=== PATIENT | female | born 1950 | race Two or more races ===

== ENCOUNTER 2017-09-22 10:33 | Day surgery (SDC) | payer MEDICARE, MEDICAID ==
[~2017-09-22 10:33] MED LIST: CHONDR SU A NA/HYALUR INTRAOC KIT (SURGICARE) ONE; EPINEPHRINE INJ/PF 1 MG/1 ML AMPULE ONE; KETOROLAC TROMETHAMINE 0.45% 4 DROP/0.4 ML DROPERETTE OD PRN; LIDOCAINE 1% INJ-PF (10 MG/ML) 30 ML SDV ONE; TOBRAMYCIN SULFATE/DEXAMETH OPH OINTMENT 3.5 GM ONE
[2017-09-22] MEDS: TROPICAMIDE 1% OPH SOLN 3 ML OD PRN ×3 (10:50→11:10)
[2017-09-22] MEDS: BESIFLOXACIN HCL 0.6% OPH SUSP 5 ML BOTTLE OD PRN ×3 (10:50→11:45)
[2017-09-22] MEDS: CYCLOPENTOLATE 0.2%/PHENYLEPHRINE 1% OPH SOLN 2 ML OD PRN ×3 (10:50→11:10)
[2017-09-22] MEDS: TETRACAINE HCL 0.5% OPH SOLN 0.6 ML DROPERETTE OD PRN ×3 (10:51→11:25)
[2017-09-22] MEDS ORDERED: MIDAZOLAM 2 MG/2 ML INJ ONE ×2 (11:13→11:34)
[2017-09-22] MEDS ORDERED: FENTANYL CITRATE INJ/PF 100 MCG/2 ML AMPUL ONE (11:13)
== END 2017-09-22 12:23 | disposition home or self-care (01) ==
LOC: SC 10:33
PROVIDERS: ATTEND Ophthalmology
DX: H25.11 Age-related nuclear cataract, right eye (principal); F17.210 Nicotine dependence, cigarettes, uncomplicated; J45.909 Unspecified asthma, uncomplicated; K21.9 Gastro-esophageal reflux disease without esophagitis; Z79.899 Other long term (current) drug therapy; Z86.73 Personal history of transient ischemic attack (TIA), and cerebral infarction without residual deficits
CPT/HCPCS: 66984; V2630; J2250; J3490 ×3; A9270; J0171; J3010; 142

== ENCOUNTER → 2017-11-05 | Outpatient (CLI) | payer MEDICARE, MEDICAID ==
--- NOTE | 2017-11-05 14:43 | WOMENS IMAGING REPORT ---
EXAM DESCRIPTION: 3D SCREENING MAMMO BILAT COMPLETED DATE/TIME: 11/05/2017 1:35 pm REASON FOR STUDY: ROUTINE SCREENING;Z12.31 Z12.31 ENCNTR SCREEN MAMMOGRAM FOR MALIGNANT NEOPLASM OF CRUZ COMPARISON: Multiple since 2009 TECHNIQUE: Standard craniocaudal and mediolateral oblique views of each breast recorded using digita l acquisition and breast tomosynthesis. LIMITATIONS: None. FINDINGS: No masses, calcifications or architectural distortion. No areas of suspicion. Read with the assistance of CAD. .[facility] - R2 Cenova Version 1.3 .[facility] Imaging - R2 Cenova Version 1.3 .[facility] Imaging - R2 Cenova Version 2.4 .[facility] - R2 Cenova Version 2.4 .[facility] - R2 Datawarehouse Developer Version 9.2 IMPRESSION: NORMAL MAMMOGRAM. BIRADS 1. BREAST DENSITY: b. There are scattered areas of fibroglandular density. BIRAD: 1 NEGATIVE RECOMMENDATION: ROUTINE SCREENING Please continue yearly bilateral screening tomosynthesis in November 2018. COMMENT: The patient has been notified of the results by letter per SA requirements. Additional no tification policies are in place for contacting patient with suspicious or incomplete findings. Quality ID #[id number]: The [employer] recommends an annual screening mammogram for women aged 40 years or over. This facility utilizes a reminder system to ensure that all patients receive reminder letters, and/or direct phone calls for appointments. This includes reminders for routine scr eening mammograms, diagnostic mammograms, or other Breast Imaging Interventions when appropriate. Th is patient will be placed in the appropriate reminder system. The [employer] (ACR) has developed recommendations for screening MRI of the breast s in certain patient populations, to be used in conjunction with mammography. Breast MRI surveillanc e may be appropriate for women with more than 20% lifetime risk of developing breast cancer as deter mined by genetic testing, significant family history of the disease, or history of mantle radiation f or Hodgkins Disease. ACR Practice Guidelines 2008. DBT Technology DBT is a type of tomographic mammography. With conventional mammography, overlapping breast tissue ma y make lesions difficult to detect, even with good compression. DBT uses an x-ray tube that rotates a round the breast, taking images at different angles. These images are then combined to create thin sl ices of the breast that the radiologist can view as a 3D reconstruction. The Cogito unit can perform full-field digital mammograms (2D imaging); or DBT (3D imaging); or both, in a combination mode that quickly performs both the mammogram and the tomosynthesis scan while the breast is still compressed. PQRS 6045F: Fluoroscopic imaging is not utilized for breast tomosynthesis. TECHNICAL DOCUMENTATION: FINDING NUMBER: (1) ASSESSMENT: (1) JOB ID: [id number] [employer]- All Rights Reserved Reading location - IP/workstation name: [facility]
== END ==
LOC: WI 11:06
PROVIDERS: ATTEND Family Medicine
DX: Z12.31 Encounter for screening mammogram for malignant neoplasm of breast (principal)
CPT/HCPCS: 77063; 77067

== ENCOUNTER 2017-11-21 09:09 | Inpatient (IN) | payer MEDICARE, MEDICAID ==
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
[2017-11-21] MEDS ORDERED: NORMAL SALINE 1000 ML 1,000 ML IV ONE (09:30)
[2017-11-21] MEDS ORDERED: ALBUTEROL SULFATE 0.083% NEB 2.5 MG/3 ML AMPUL NEB ONE ×2 (09:31→11:44)
[2017-11-21] MEDS ORDERED: IPRATROPIUM/ALBUTEROL 0.5-2.5 MG/3 ML AMPUL NEB ONE ×2 (09:31→15:51)
[2017-11-21 09:57] LABS: ABSOLUTE LYMPHOCYTES (AUTO) 1.3 10^3/uL (0.5-4.7); ABSOLUTE MONOCYTES (AUTO) 0.4 10^3/uL (0.1-1.4); ABSOLUTE NEUT (AUTO) 4.4 10^3/uL (1.7-8.2); BASOPHILS % (AUTO) 0.2 % (0-2); EOSINOPHILS % (AUTO) 0.1 % (0-6); HEMATOCRIT 40.7 % (36.0-47.0); HEMOGLOBIN 13.9 g/dL (12.0-15.5); LYMPHOCYTES % (AUTO) 21.6 % (13-45); MEAN CORPUSCULAR HEMOGLOBIN 31.8 pg (27.0-33.4); MEAN CORPUSCULAR HGB CONC 34.3 g/dL (32.0-36.0); MEAN CORPUSCULAR VOLUME 93 fl (80-97); MONOCYTES % (AUTO) 6.7 % (3-13); PLATELET COUNT 276 10^3/uL (150-450); RED BLOOD COUNT 4.39 10^6/uL (3.72-5.28); RED CELL DISTRIBUTION WIDTH 15.1 % (11.5-14.0); SEGMENTED NEUTROPHILS % (AUTO) 71.4 % (42-78); TOTAL CELLS COUNTED % (AUTO) 100 %; WHITE BLOOD COUNT 6.2 10^3/uL (4.0-10.5)
[2017-11-21 10:10] LABS: ALANINE AMINOTRANSFERASE 23 U/L (9-52); ALBUMIN 4.3 g/dL (3.5-5.0); ALKALINE PHOSPHATASE 137 U/L (38-126); ANION GAP 18 (5-19); ASPARTATE AMINO TRANSFERASE 23 U/L (14-36); BILIRUBIN,DIRECT 0.4 mg/dL (0.0-0.4); BILIRUBIN,TOTAL 0.4 mg/dL (0.2-1.3); BLOOD UREA NITROGEN 7 mg/dL (7-20); CALCIUM 9.9 mg/dL (8.4-10.2); CARBON DIOXIDE 25 mmol/L (22-30); CHLORIDE 107 mmol/L (98-107); CREATINE KINASE 74 U/L (30-135); GLUCOSE 102 mg/dL (75-110); POTASSIUM 4.4 mmol/L (3.6-5.0); SODIUM 149.6 mmol/L (137-145); TOTAL PROTEIN 7.9 g/dL (6.3-8.2)
[2017-11-21] MEDS ORDERED: KETOROLAC TROMETHAMINE INJ/PF 30 MG/1 ML SDV IV ONE (10:15)
[2017-11-21 10:17] LABS: VENOUS BLOOD BASE EXCESS -1.6 mmol/L; VENOUS BLOOD PCO2 49.5 mmHg (35-63); VENOUS BLOOD PH 7.32 (7.30-7.42)
--- NOTE | 2017-11-21 10:32 | RADIOLOGY REPORT (SQ) ---
EXAM DESCRIPTION: CHEST SINGLE VIEW COMPLETED DATE/TIME: 11/21/2017 10:17 am REASON FOR STUDY: COPD exacerbation COMPARISON: 03/08/2015. EXAM PARAMETERS: NUMBER OF VIEWS: One view. TECHNIQUE: Single frontal radiographic view of the chest acquired. RADIATION DOSE: NA LIMITATIONS: None. FINDINGS: LUNGS AND PLEURA: No opacities, masses or pneumothorax. No pleural effusion. MEDIASTINUM AND HILAR STRUCTURES: No masses. Contour normal. HEART AND VASCULAR STRUCTURES: Heart normal in size. Normal vasculature. BONES: No acute findings. HARDWARE: None in the chest. OTHER: No other significant finding. IMPRESSION: NO ACUTE RADIOGRAPHIC FINDING IN THE CHEST. TECHNICAL DOCUMENTATION: JOB ID: [id number] [email or web address]- All Rights Reserved Reading location - IP/workstation name: [email or web address]
[2017-11-21 10:51] LABS: APPEARANCE,URINE CLEAR; BILIRUBIN,URINE NEGATIVE (NEGATIVE); COLOR,URINE YELLOW; GLUCOSE, URINE NEGATIVE (NEGATIVE); KETONES,URINE NEGATIVE (NEGATIVE); LEUKOCYTE ESTERASE,URINE NEGATIVE (NEGATIVE); NITRITE,URINE NEGATIVE (NEGATIVE); PROTEIN,URINE 30 mg/dL (NEGATIVE); URINE SPECIFIC GRAVITY 1.016
[2017-11-21] MEDS ORDERED: HYDROMORPHONE HCL INJ/PF 2 MG/ML AMPULE IV ONE ×2 (11:02→14:24)
[2017-11-21] MEDS ORDERED: PREDNISONE 20 MG TABLET PO ONE (13:35)
[2017-11-21] MEDS ORDERED: LEVALBUTEROL HCL NEB 1.25 MG/3 ML AMPUL NEB PRN (15:47)
[2017-11-21] MEDS ORDERED: LEVALBUTEROL HCL NEB 1.25 MG/3 ML AMPUL NEB ONE (16:07)
[2017-11-21] MEDS: IPRATROPIUM/ALBUTEROL 0.5-2.5 MG/3 ML AMPUL NEB SCH ×2 (16:08→19:40)
--- NOTE | 2017-11-21 16:19 | EKG REPORT ---
SEVERITY:- OTHERWISE NORMAL ECG - SINUS RHYTHM BORDERLINE LEFT AXIS DEVIATION : Confirmed by: Aditi An 21-Nov-2017 16:17:32
[2017-11-21] MEDS ORDERED: ENOXAPARIN SODIUM INJ 30 MG/0.3 ML DISP.SYRIN SUBCUT ONE (17:00)
[2017-11-21] MEDS ORDERED: NICOTINE 21 MG/24 HR PATCH.TD24 TD ONE (17:15)
[2017-11-21 18:08] LABS: ARTERIAL BLOOD BASE EXCESS -2.7 mmol/L; ARTERIAL BLOOD FIO2 3L; ARTERIAL BLOOD H2CO3 1.38 mmol/L (1.05-1.35); ARTERIAL BLOOD HCO3 23.4 mmol/L (20-26); ARTERIAL BLOOD O2 SATURATION 94.1 % (94-98); ARTERIAL BLOOD PCO2 45.7 mmHg (35-45); ARTERIAL BLOOD PH 7.33 (7.35-7.45); ARTERIAL BLOOD PO2 75.3 mmHg (80-100); ARTERIAL BLOOD TOTAL CO2 24.8 mmol/L (21-25)
[2017-11-21] MEDS ORDERED: METHYLPREDNISOLONE INJ 125 MG/2 ML SDV IV ONE (18:27)
[2017-11-21] MEDS ORDERED: KETOROLAC TROMETHAMINE INJ/PF 30 MG/1 ML SDV ONE (18:54)
[2017-11-21] MEDS ORDERED: HYDRALAZINE HCL INJ/PF 20 MG/1 ML SDV IV PRN (20:26)
[2017-11-21] MEDS: ATORVASTATIN CALCIUM 20 MG TABLET PO SCH (21:22)
[2017-11-21] MEDS: BUSPIRONE HCL 10 MG TABLET PO SCH (21:22)
[2017-11-21] MEDS: SUCRALFATE 1 GM TABLET PO SCH (21:23)
[2017-11-21] MEDS: GUAIFENESIN 600 MG TABLET.SA PO SCH (21:23)
[2017-11-21] MEDS: MONTELUKAST SODIUM 10 MG TABLET PO SCH (21:23)
[2017-11-21] MEDS: DOXYCYCLINE HYCLATE 100 MG TABLET PO SCH (21:23)
--- NOTE | 2017-11-21 21:34 | PDOC H&P ---
<MARIA T SMITH Triston - Last Filed: 11/21/17 21:25> History of Present Illness Admission Date/PCP: 11/21/17 14:44 LISA STARK MD Patient complains of: shortness of breath History of Present Illness: AMELIE EDMOND is a 67 year old female who presented to the emergency department with a chief complaint of SOB for approximately 1 week. She states she recently traveled back and forth to [facility] for a , and she began to feel ill during her return trip to [place]. The patient describes her symptoms as difficulty breathing, dizziness, a persistent cough, and endorses a TMAX of 103 48hrs ago. She is experiencing a DENNEY and R&L lateral rib pain when coughing. She initially went to her PMD 2 days ago for her symptoms, and she was prescribed Augmentin, Medrol dose pack, Advair and albuterol. The patient states that her symptoms continued to get worse, despite her medication therapy, so she came to the hospital. PMH includes COPD (no home O2), HTN, HLD, osteoporosis, CVA with residual mild RUE weakness Her VS upon arrival were as follows BP 103/60 P 64 RR 26 T 99.1 SPO2 94% on RA. While in the emergency department, the patient received multiple nebulizer treatments, PO prednisone, and pain medication for her rib pain associated with coughing. Her CXR showed mild pulmonary vascular congestion, no other pathology. ABG (following nebulizer treatments) demonstrated respiratory acidosis with metabolic compensation. Other lab work was mostly unremarkable, except for mild HYPERnatremia (Na 149). EKG shows NSR, no signs of acute infarct or ischemia. Upon assessment, the patient was resting in bed on supplemental oxygen via nasal cannula. Audible wheezing could be heard from the doorway, however, the patient did not appear to be in any distress. Wheezing could be heard in all lung robles, no evidence of rhonci or other adventitious lung sounds. The patient endorsed feeling SOB and dizzy, even while at rest. She also endorsed lateral chest wall/rib pain associated with coughing, which was producing thick yellow mucous. She denied fever, chills, or neck or back pain. Given the severity of the patient's symptoms, plan to admit to the hospitalist service. Past Medical History Cardiac Medical History: Reports: Hyperlipidema Denies: Atrial Fibrillation, Congestive Heart Failure, Coronary Artery Disease, Myocardial Infarction, Hypertension, Peripheral Vascular Disease, Pulmonary Embolism, Heart Murmur Pulmonary Medical History: Reports: Asthma - NO RECENT HOSPITALIZATION/ ALBUTEROL PRN, Chronic Obstructive Pulmonary Disease (COPD) Denies: Bronchitis, Pneumonia, Respiratory Failure, Sleep Apnea, Tuberculosis Neurological Medical History: Reports: Ischemic CVA, Migraine Denies: Seizures Renal/ Medical History: Denies: End Stage Renal Disease Malignancy Medical History: Denies: Lung Cancer GI Medical History: Reports: Gastroesophageal Reflux Disease Denies: Crohn's Disease, Hepatitis, Hiatal Hernia Musculoskeltal Medical History: Reports: Arthritis - back, Fibromyalgia Psychiatric Medical History: Reports: Depression Denies: Bipolar Disorder, Post Traumatic Stress Disorder Hematology: Denies: Anemia, Sickle Cell Disease Past Surgical History Past Surgical History: Reports: Cholecystectomy, Hysterectomy, Tonsillectomy, Tubal Ligation Denies: Amputation, Appendectomy, Section, Colostomy, Coronary Artery Bypass Graft, Gastric Bypass Surgery, Herniorrhaphy, Mastectomy, Pacemaker Social History Information Source: Patient Lives with: Family Smoking Status: Current Every Day Smoker Cigarettes Packs Per Day: 0.5 - 0.5-1 ppd Number of Years Smokin Frequency of Alcohol Use: None Hx Recreational Drug Use: No Drugs: None Hx Prescription Drug Abuse: No - Advance Directive Resuscitation Status: Do Not Resuscitate Family History Family History: CAD, DM, Malignancy - BREAST CANCER - 2 SISTERS Parental Family History Reviewed: Yes Children Family History Reviewed: Unknown Sibling(s) Family History Reviewed.: Yes Medication/Allergy Home Medications: Quetiapine Fumarate [Seroquel 100 mg Tablet] 200 mg PO QHS 09/15/14 Diazepam [Valium 5 mg Tablet] 10 mg PO BIDP PRN 07/09/15 Fluoxetine HCl [Prozac] 80 mg PO DAILY 09/17/17 Gabapentin 400 mg PO Q8 09/17/17 Sucralfate [Carafate 1 gm Tablet] 1 gm PO ACHS 09/17/17 Albuterol Sulfate [Ventolin HFA] 2 puff IH Q6HP PRN 11/21/17 Amox Tr/Potassium Clavulanate [Augmentin 875-125 mg Tablet] 1 tab PO BID MDD FILLED 11/18 FOR 10DS 11/21/17 Buspirone HCl [Buspar 15 mg Tablet] 15 mg PO Q8 11/21/17 Butalb/Acetaminophen/Caffeine [Fioricet 50-300-40 mg Capsule] 1 cap PO Q4HP PRN 11/21/17 Donepezil HCl [Aricept] 10 mg PO DAILY 11/21/17 Fluticasone Propionate [Flonase Nasal [place] 50 Mcg/[place] 16 gm] 2 sprays NAREB DAILY 11/21/17 Fluticasone/Salmeterol [Advair 250-50 Diskus 28 dose] 1 inh IH Q12 11/21/17 Meloxicam [Mobic] 15 mg PO DAILY 11/21/17 Methylprednisolone [Medrol Dosepack (4 mg/Tab) 21 Tab/Dosepak] 4 mg PO ASDIR PRN MDD FILLED 11/18 FOR 6DS 11/21/17 Montelukast Sodium [Singulair 10 mg Tablet] 10 mg PO QHS 11/21/17 Rosuvastatin Calcium [Crestor 10 mg Tablet] 10 mg PO QHS 11/21/17 Allergies/Adverse Reactions: No Known Allergies Allergy (Verified 11/21/17 09:13) Review of Systems All systems: reviewed and no additional remarkable complaints except as stated Physical Exam Vital Signs: Temp Pulse Resp BP Pulse Ox 98.3 F 69 16 126/64 H 95 11/21/17 16:37 11/21/17 16:40 11/21/17 16:37 11/21/17 16:37 11/21/17 16:37 Intake & Output 11/20/17 11/21/17 11/22/17 06:59 06:59 06:59 Intake Total 10 Output Total 0 Balance 10 General appearance: PRESENT: mild distress, morbidly obese Head exam: PRESENT: atraumatic Eye exam: PRESENT: conjunctiva pink, PERRLA Mouth exam: PRESENT: moist Neck exam: PRESENT: full ROM Respiratory exam: PRESENT: prolonged expiratory phas, symmetrical, wheezes - INSPIRATORY AND EXPIRATORY. ABSENT: retraction, stridor, unlabored Cardiovascular exam: PRESENT: +S1, +S2 Pulses: PRESENT: normal radial pulses, normal dorsalis pedis pul GI/Abdominal exam: PRESENT: normal bowel sounds, soft. ABSENT: tenderness Rectal exam: PRESENT: deferred Extremities exam: PRESENT: full ROM Musculoskeletal exam: PRESENT: ambulatory, full ROM Neurological exam: PRESENT: alert, awake, oriented to person, oriented to place , oriented to time, oriented to situation Psychiatric exam: PRESENT: appropriate affect Skin exam: PRESENT: dry, normal color, warm Results Laboratory Results: 11/21/17 17:40 Carbonic Acid 1.38 H HCO3/H2CO3 Ratio 16:1 ABG pH 7.33 L ABG pCO2 45.7 H ABG pO2 75.3 L ABG HCO3 23.4 ABG O2 Saturation 94.1 ABG Base Excess -2.7 FiO2 3L Impressions: Chest X-Ray 11/21/17 09:29 IMPRESSION: NO ACUTE RADIOGRAPHIC FINDING IN THE CHEST. Status: Imported from PACS Assessment & Plan - Diagnosis (1) Acute and chronic respiratory failure QualifierTitle: Respiratory failure complication: hypoxia and hypercapnia Qualified Code(s): J96.21 - Acute and chronic respiratory failure with hypoxia ; J96.22 - Acute and chronic respiratory failure with hypercapnia; J96.22 - Acute and chronic respiratory failure with hypercapnia; J96.22 - Acute and chronic respiratory failure with hypercapnia Is this a current diagnosis for this admission?: Yes Plan: Secondary to COPD exacerbation stemming from upper respiratory infection The patient states she recently traveled back and forth to [place], she states she started feeling ill during her trip back to [place] CXR demonstrates mild pulmonary vascular congestion, no other pathology The patient endorses a 50 pack year smoking history, but denies ever being diagnosed with COPD. ABG shows hypercapnic respiratory acidosis with metabolic compensation Supplemental oxygen via nasal cannula for SPO2> 88% Duoneb q4h ISABEL Xopenex q4h PRN Solumedrol 60mg q6h Empiric antibiotic therapy (doxycycline PO) for acute bronchitis in the COPD patient Plan for inpatient PFT Pulmonary has been consulted (2) COPD with acute exacerbation Is this a current diagnosis for this admission?: Yes Plan: Plan as above (3) HTN (hypertension) QualifierTitle: Hypertension type: essential hypertension Qualified Code( s): I10 - Essential (primary) hypertension Is this a current diagnosis for this admission?: Yes Plan: Patient endorses a history of HTN but she is not on anti-hypertensives at home Patient has remained relatively NORMOtensive while inpatient PRN IV Hydralazine for SBP > 170 (4) HLD (hyperlipidemia) QualifierTitle: Hyperlipidemia type: unspecified Qualified Code(s): E78.5 - Hyperlipidemia, unspecified Is this a current diagnosis for this admission?: Yes Plan: Patient endorses a history of HLD Continue home dose statin (5) Depression QualifierTitle: Depression Type: reactive depression Qualified Code(s): F32.9 - Major depressive disorder, single episode, unspecified Is this a current diagnosis for this admission?: Yes Plan: The patient endorses a history of depression, states she often experiences migraines when she is very stressed and/or depressed Continue home dose Buspar and Prozac The patient denies current feelings of depression, suicidal ideation or homicidal ideation. (6) DNR (do not resuscitate) Is this a current diagnosis for this admission?: Yes Plan: Patient states that she wants to be a DNR. She does not want resuscitation. The patient stated this in from of the author and three family members. - Time Critical Time spent with patient: 15-24 minutes Medications reviewed and adjusted accordingly: Yes Anticipated discharge: Home - Inpatient Certification Based on my medical assessment, after consideration of the patient's comorbidities, presenting symptoms, or acuity I expect that the services needed warrant INPATIENT care.: Yes I certify that my determination is in accordance with my understanding of Medicare's requirements for reasonable and necessary INPATIENT services [42 CFR 412.3e].: Yes Medical Necessity: Need for IV Antibiotics, Risk of Complication if Not Cared For in Hospital - Plan Summary Plan Summary: Treat COPD exacerbation and discharge home <MILLIENOVEMBER C - Last Filed: 11/22/17 07:21> History of Present Illness Admission Date/PCP: 11/21/17 14:44 LISA STARK MD History of Present Illness: AMELIE EDMOND is a 67 year old female Physical Exam Vital Signs: Temp Pulse Resp BP Pulse Ox 97.6 F 71 17 142/47 H 97 11/22/17 00:00 11/22/17 03:52 11/22/17 03:52 11/22/17 00:00 11/22/17 03:52 Intake & Output 11/21/17 11/22/17 11/23/17 06:59 06:59 06:59 Intake Total 610 Output Total 0 Balance 610 Weight 73.6 kg Results Laboratory Results: 11/21/17 17:40 Carbonic Acid 1.38 H HCO3/H2CO3 Ratio 16:1 ABG pH 7.33 L ABG pCO2 45.7 H ABG pO2 75.3 L ABG HCO3 23.4 ABG O2 Saturation 94.1 ABG Base Excess -2.7 FiO2 3L Impressions: Chest X-Ray 11/21/17 09:29 IMPRESSION: NO ACUTE RADIOGRAPHIC FINDING IN THE CHEST. Assessment & Plan - Plan Summary Plan Summary: Cosigning document for Maria T Smith NP
[2017-11-21] MEDS: SALMETEROL XINAFOATE DISKUS 50 MCG/1 DOSE 28 DOSE IH SCH (21:37)
[2017-11-21] MEDS ORDERED: FLUTICASONE/SALMETEROL DISKUS 250-50 MCG/DOSE IH SCH (22:00)
[2017-11-21] MEDS ORDERED: GUAIFENESIN 600 MG TABLET.SA PO ONE (23:00)
[2017-11-22] MEDS: IPRATROPIUM/ALBUTEROL 0.5-2.5 MG/3 ML AMPUL NEB SCH ×7 (00:20→23:56)
[2017-11-22] MEDS: KETOROLAC TROMETHAMINE INJ/PF 30 MG/1 ML SDV IV PRN ×2 (00:53→08:11)
[2017-11-22] MEDS ORDERED: BENZONATATE 100 MG CAPSULE PO ONE (01:30)
[2017-11-22] MEDS: BUSPIRONE HCL 10 MG TABLET PO SCH ×3 (06:02→21:43)
[2017-11-22] MEDS ORDERED: MORPHINE SULFATE 10 MG/ML INJ IV ONE (07:00)
[2017-11-22 07:52] LABS: ABSOLUTE LYMPHOCYTES (AUTO) 1.3 10^3/uL (0.5-4.7); ABSOLUTE MONOCYTES (AUTO) 0.6 10^3/uL (0.1-1.4); ABSOLUTE NEUT (AUTO) 9.6 10^3/uL (1.7-8.2); HEMATOCRIT 37.8 % (36.0-47.0); HEMOGLOBIN 12.6 g/dL (12.0-15.5); LYMPHOCYTES % (AUTO) 11.4 % (13-45); MEAN CORPUSCULAR HEMOGLOBIN 30.8 pg (27.0-33.4); MEAN CORPUSCULAR HGB CONC 33.2 g/dL (32.0-36.0); MEAN CORPUSCULAR VOLUME 93 fl (80-97); MONOCYTES % (AUTO) 5.4 % (3-13); PLATELET COUNT 240 10^3/uL (150-450); RED BLOOD COUNT 4.08 10^6/uL (3.72-5.28); RED CELL DISTRIBUTION WIDTH 14.9 % (11.5-14.0); SEGMENTED NEUTROPHILS % (AUTO) 83.2 % (42-78); TOTAL CELLS COUNTED % (AUTO) 100 %; WHITE BLOOD COUNT 11.6 10^3/uL (4.0-10.5)
[2017-11-22] MEDS: SUCRALFATE 1 GM TABLET PO SCH ×4 (07:59→21:43)
[2017-11-22] MEDS: ACETAMINOPHEN 325 MG TABLET PO PRN ×2 (07:59→21:43)
[2017-11-22] MEDS ORDERED: METHYLPREDNISOLONE INJ 40 MG/1 ML SDV IV SCH (08:00)
[2017-11-22 08:11] LABS: ANION GAP 14 (5-19); BLOOD UREA NITROGEN 9 mg/dL (7-20); CALCIUM 9.8 mg/dL (8.4-10.2); CARBON DIOXIDE 26 mmol/L (22-30); CHLORIDE 107 mmol/L (98-107); GLUCOSE 78 mg/dL (75-110); PHOSPHORUS 3.2 mg/dL (2.5-4.5); POTASSIUM 4.4 mmol/L (3.6-5.0); SODIUM 146.6 mmol/L (137-145)
--- NOTE | 2017-11-22 08:57 | RADIOLOGY REPORT (SQ) ---
EXAM DESCRIPTION: CHEST SINGLE VIEW COMPLETED DATE/TIME: 11/22/2017 8:36 am REASON FOR STUDY: RESP.DISTRESS COMPARISON: Chest films 11/21/2017, 03/08/2015, 01/11/2014 CT chest 12/14/2013 EXAM PARAMETERS: NUMBER OF VIEWS: One view. TECHNIQUE: Single frontal radiographic view of the chest acquired. RADIATION DOSE: NA LIMITATIONS: Lordotic film, EKG leads over the chest FINDINGS: LUNGS AND PLEURA: No opacities, masses or pneumothorax. No pleural effusion. MEDIASTINUM AND HILAR STRUCTURES: No masses. Contour normal. HEART AND VASCULAR STRUCTURES: Heart normal in size. Normal vasculature. BONES: No acute findings. HARDWARE: None in the chest. OTHER: No other significant finding. IMPRESSION: NO ACUTE RADIOGRAPHIC FINDING IN THE CHEST. TECHNICAL DOCUMENTATION: JOB ID: [id number] [employer]- All Rights Reserved Reading location - IP/workstation name: [email or web address]
[2017-11-22] MEDS: DONEPEZIL HCL 5 MG TABLET PO SCH (09:59)
[2017-11-22] MEDS: GUAIFENESIN 600 MG TABLET.SA PO SCH ×2 (09:59→21:43)
[2017-11-22] MEDS: BENZONATATE 100 MG CAPSULE PO SCH ×3 (10:00→18:55)
[2017-11-22] MEDS: DOXYCYCLINE HYCLATE 100 MG TABLET PO SCH (10:00)
[2017-11-22] MEDS ORDERED: TIOTROPIUM BROMIDE DPI 5 CAP/KIT (18 MCG/CAP) IH SCH (10:00)
[2017-11-22] MEDS: FLUOXETINE HCL 20 MG CAPSULE PO SCH (10:00)
[2017-11-22] MEDS: NICOTINE 21 MG/24 HR PATCH.TD24 TD SCH (10:00)
[2017-11-22] MEDS ORDERED: GUAIFENESIN 600 MG TABLET.SA PO SCH (10:00)
[2017-11-22] MEDS: ENOXAPARIN SODIUM INJ 30 MG/0.3 ML DISP.SYRIN SUBCUT SCH (10:01)
[2017-11-22] MEDS: FLUTICASONE NASAL SPRAY 50 MCG/SPRY 120 SPRAY/16 GM NAREB SCH (10:02)
[2017-11-22] MEDS: SALMETEROL XINAFOATE DISKUS 50 MCG/1 DOSE 28 DOSE IH SCH (10:02)
[2017-11-22] MEDS ORDERED: TRAMADOL HCL 50 MG TABLET PO PRN (10:09)
[2017-11-22] MEDS ORDERED: LIDOCAINE 5% (700 MG) TRANSDERMAL ADH..PATCH TP ONE (11:00)
[2017-11-22] MEDS ORDERED: BUDESONIDE NEB 0.5 MG/2 ML AMPUL NEB ONE (11:45)
[2017-11-22] MEDS ORDERED: TUBERCULIN,PURIF.PROT.DERIV. 5 TU/0.1 ML TEST 1 ML VIAL ID ONE (11:45)
[2017-11-22] MEDS ORDERED: MORPHINE SULFATE 10 MG/ML INJ IV PRN (12:30)
--- NOTE | 2017-11-22 12:54 | EKG REPORT ---
SEVERITY:- OTHERWISE NORMAL ECG - SINUS RHYTHM LEFT AXIS DEVIATION : Confirmed by: Paul Frost MD 22-Nov-2017 12:54:11
[2017-11-22] MEDS: ONDANSETRON 4 MG TAB.RAPDIS PO PRN ×2 (13:25→19:05)
[2017-11-22] MEDS: METHYLPREDNISOLONE INJ 125 MG/2 ML SDV IV SCH ×2 (13:34→21:42)
[2017-11-22] MEDS: LEVOFLOXACIN 750 MG/D5W RTU 750 MG/150 ML RTUPB IV SCH (15:40)
[2017-11-22] MEDS: BUDESONIDE NEB 0.5 MG/2 ML AMPUL NEB SCH (19:57)
[2017-11-22] MEDS: MONTELUKAST SODIUM 10 MG TABLET PO SCH (21:43)
[2017-11-22] MEDS: ATORVASTATIN CALCIUM 20 MG TABLET PO SCH (21:43)
[2017-11-22] MEDS ORDERED: PROMETHAZINE HCL INJ 25 MG/1 ML VIAL IV PRN (22:09)
[2017-11-22] MEDS: DEXTROSE 5%-WATER 1000 ML 1,000 ML IV PRN (23:19)
--- NOTE | 2017-11-23 02:35 | PDOC PROGRESS REPORT ---
<SARAHMARIA T A - Last Filed: 11/23/17 02:11> Subjective Progress Note for:: 11/22/17 Subjective:: AMELIE EDMOND is a 67 y.o. female with a PMH of COPD (50 pack yrs), HTN, HLD, depression and anxiety. She presented to the ED 11/21/2017 with a severe COPD exacerbation. Patient seen this morning on rounds, she is sitting upright in bed and is tachypnic with a RR 25. She c/o SOB as well as L lateral chest pain exacerbated with coughing. Wheezing heard in all lung robles. SPO2 93% on 2LNC. STAT EKG just showed NSR, no evidence of acute ischemia or infarction. Repeat CXR shows pulmonary vascular congestion, no evidence of PNA or other lung pathology. Additionally, the patient spiked a fever to 103. Blood cultures and sputum cultures ordered, results pending. Antibiotic coverage for acute bronchitis changed from PO doxycycline to IV levaquin. Reason For Visit: COPD EXACERBATION Physical Exam Vital Signs: Temp Pulse Resp BP Pulse Ox 98.4 F 79 22 H 113/51 L 97 11/22/17 23:37 11/22/17 23:56 11/22/17 23:56 11/22/17 23:37 11/23/17 00:01 Pulse Oximeter Continuous Start: 11/22/17 08: 35 Freq: RTQ4 Status: Active Document 11/23/17 00:01 CMI (Rec: 11/23/17 00:30 CMI [email or web address]) Pulse Oximetry Assessment Oxygen Saturation (92-100) 97 Oxygen Flow Rate (L/min) 3 Oxygen Delivery Method Nasal Cannula Fraction of Inspired Oxygen (FIO2) 32 Equipment Usage Equipment in Use Continuous Pulse Oximeter 24 Hour Charge Charge Now Continuous SpO2 Machine # 11 Intake & Output 11/21/17 11/22/17 11/23/17 06:59 06:59 06:59 Intake Total 610 462 Output Total 0 Balance 610 462 Weight 73.6 kg 74.9 kg General appearance: PRESENT: mild distress Eye exam: PRESENT: conjunctiva pink, PERRLA Mouth exam: PRESENT: moist Neck exam: PRESENT: full ROM Respiratory exam: PRESENT: prolonged expiratory phas, symmetrical, wheezes Cardiovascular exam: PRESENT: +S1, +S2 Pulses: PRESENT: normal radial pulses, normal dorsalis pedis pul Vascular exam: PRESENT: normal capillary refill GI/Abdominal exam: PRESENT: normal bowel sounds, soft Rectal exam: PRESENT: deferred Extremities exam: PRESENT: full ROM Musculoskeletal exam: PRESENT: ambulatory, full ROM Neurological exam: PRESENT: alert, awake, oriented to person, oriented to place , oriented to time, oriented to situation Psychiatric exam: PRESENT: anxious Skin exam: PRESENT: dry, intact, normal color Results Laboratory Results: 11/22/17 06:49 11/22/17 06:49 11/22/17 11/22/17 06:49 06:49 WBC 11.6 H RBC 4.08 Hgb 12.6 Hct 37.8 MCV 93 MCH 30.8 MCHC 33.2 RDW 14.9 H Plt Count 240 Seg Neutrophils % 83.2 H Lymphocytes % 11.4 L Monocytes % 5.4 Eosinophils % 0.0 Basophils % 0.0 Absolute Neutrophils 9.6 H Absolute Lymphocytes 1.3 Absolute Monocytes 0.6 Absolute Eosinophils 0.0 Absolute Basophils 0.0 Sodium 146.6 H Potassium 4.4 Chloride 107 Carbon Dioxide 26 Anion Gap 14 BUN 9 Creatinine 0.42 L Est GFR ( Amer) > 60 Est GFR (Non-Af Amer) > 60 Glucose 78 Calcium 9.8 Phosphorus 3.2 Magnesium 1.8 11/22/17 11/22/17 11/22/17 06:49 12:35 18:05 Troponin I < 0.012 < 0.012 < 0.012 Impressions: Chest X-Ray 11/22/17 00:00 IMPRESSION: NO ACUTE RADIOGRAPHIC FINDING IN THE CHEST. Status: Imported from PACS Assessment & Plan - Diagnosis (1) Acute and chronic respiratory failure QualifierTitle: Respiratory failure complication: hypoxia and hypercapnia Qualified Code(s): J96.21 - Acute and chronic respiratory failure with hypoxia ; J96.22 - Acute and chronic respiratory failure with hypercapnia; J96.22 - Acute and chronic respiratory failure with hypercapnia; J96.22 - Acute and chronic respiratory failure with hypercapnia Is this a current diagnosis for this admission?: Yes Plan: Secondary to COPD exacerbation stemming from upper respiratory infection The patient states she recently traveled back and forth to [place], she states she started feeling ill during her trip back to [place] CXR demonstrates mild pulmonary vascular congestion, no other pathology The patient endorses a 50 pack year smoking history, but denies ever being diagnosed with COPD. Initial ABG shows hypercapnic respiratory acidosis with metabolic compensation Supplemental oxygen via nasal cannula for SPO2> 88% Duoneb q4h ISABEL Xopenex q4h PRN Solumedrol 60mg q6h Empiric antibiotic therapy for acute bronchitis in the COPD patient - switched from doxycycline PO to Levaquin IV given the severity of her symptoms Incentive pirometry and flutter valve Plan for inpatient PFT Pulmonary has been consulted (2) COPD with acute exacerbation Is this a current diagnosis for this admission?: Yes Plan: Plan as above (3) HTN (hypertension) QualifierTitle: Hypertension type: essential hypertension Qualified Code( s): I10 - Essential (primary) hypertension Is this a current diagnosis for this admission?: Yes Plan: Patient endorses a history of HTN but she is not on anti-hypertensives at home Patient has remained relatively NORMOtensive while inpatient PRN IV Hydralazine for SBP > 170 (4) HLD (hyperlipidemia) QualifierTitle: Hyperlipidemia type: unspecified Qualified Code(s): E78.5 - Hyperlipidemia, unspecified Is this a current diagnosis for this admission?: Yes Plan: Patient endorses a history of HLD Continue home dose statin (5) Depression QualifierTitle: Depression Type: reactive depression Qualified Code(s): F32.9 - Major depressive disorder, single episode, unspecified Is this a current diagnosis for this admission?: Yes Plan: The patient endorses a history of depression, states she often experiences migraines when she is very stressed and/or depressed Continue home dose Buspar and Prozac The patient denies current feelings of depression, suicidal ideation or homicidal ideation. (6) DNR (do not resuscitate) Is this a current diagnosis for this admission?: Yes Plan: Patient states that she wants to be a DNR. She does not want resuscitation. The patient stated this in from of the author and three family members. (7) Cough Is this a current diagnosis for this admission?: Yes Plan: Patient c/o persistent productive cough and associated L lateral chest wall pain. +Clear/yellow sputum. Sputum culture ordered, results pending. Initiate Mucinex PO Lidocaine patch to L lateral chest wall for pain Tylenol, tramadol, and IV morphine available for pain control PRN - Time Time Spent with patient: 15-24 minutes Medications reviewed and adjusted accordingly: Yes Anticipated discharge: Home - Inpatient Certification Based on my medical assessment, after consideration of the patient's comorbidities, presenting symptoms, or acuity I expect that the services needed warrant INPATIENT care.: Yes I certify that my determination is in accordance with my understanding of Medicare's requirements for reasonable and necessary INPATIENT services [42 CFR 412.3e].: Yes Medical Necessity: Need for IV Antibiotics, Risk of Complication if Not Cared For in Hospital <MILLIENOVEMBER C - Last Filed: 11/23/17 15:24> Subjective Reason For Visit: COPD EXACERBATION Physical Exam Vital Signs: Temp Pulse Resp BP Pulse Ox 98.7 F 63 26 H 130/65 H 98 11/23/17 11:48 11/23/17 14:00 11/23/17 14:42 11/23/17 11:48 11/23/17 14:42 Pulse Oximeter Continuous Start: 11/22/17 08: 35 Freq: RTQ4 Status: Active Document 11/23/17 13:00 [facility] (Rec: 11/23/17 14:13 [facility] [email or web address]) Pulse Oximetry Assessment Oxygen Saturation (92-100) 97 Oxygen Flow Rate (L/min) 3 Oxygen Delivery Method Nasal Cannula Equipment Usage Equipment in Use Continuous SpO2 Machine # 11 Intake & Output 11/22/17 11/23/17 11/24/17 06:59 06:59 06:59 Intake Total 610 1598 Output Total 0 Balance 610 1598 Weight 73.6 kg 74.9 kg Results Laboratory Results: 11/23/17 05:39 11/23/17 05:39 11/23/17 11/23/17 05:39 05:39 WBC 10.1 RBC 3.89 Hgb 12.2 Hct 35.6 L MCV 91 MCH 31.3 MCHC 34.2 RDW 14.5 H Plt Count 255 Sodium 147.3 H Potassium 4.1 Chloride 105 Carbon Dioxide 28 Anion Gap 14 BUN 9 Creatinine 0.41 L Est GFR ( Amer) > 60 Est GFR (Non-Af Amer) > 60 Glucose 128 H Calcium 9.5 Total Bilirubin 0.4 AST 42 H ALT 53 H Alkaline Phosphatase 142 H Total Protein 7.2 Albumin 3.8 11/22/17 11/22/17 11/22/17 06:49 12:35 18:05 Troponin I < 0.012 < 0.012 < 0.012 Impressions: Chest X-Ray 11/22/17 00:00 IMPRESSION: NO ACUTE RADIOGRAPHIC FINDING IN THE CHEST. Modified Barium Swallow 11/23/17 00:00 IMPRESSION: NO EVIDENCE OF PENETRATION OR ASPIRATION.PLEASE SEE SPEECH PATHOLOGIST REPORT FOR OTHER FINDINGS AND RECOMMENDATIONS. Assessment & Plan - Plan Summary Plan Summary: Co signing the note for Maria T Burns NP.
[2017-11-23] MEDS: IPRATROPIUM/ALBUTEROL 0.5-2.5 MG/3 ML AMPUL NEB SCH ×5 (03:49→19:44)
[2017-11-23 05:55] LABS: HEMATOCRIT 35.6 % (36.0-47.0); HEMOGLOBIN 12.2 g/dL (12.0-15.5); MEAN CORPUSCULAR HEMOGLOBIN 31.3 pg (27.0-33.4); MEAN CORPUSCULAR HGB CONC 34.2 g/dL (32.0-36.0); MEAN CORPUSCULAR VOLUME 91 fl (80-97); PLATELET COUNT 255 10^3/uL (150-450); RED BLOOD COUNT 3.89 10^6/uL (3.72-5.28); RED CELL DISTRIBUTION WIDTH 14.5 % (11.5-14.0); WHITE BLOOD COUNT 10.1 10^3/uL (4.0-10.5)
[2017-11-23] MEDS: METHYLPREDNISOLONE INJ 125 MG/2 ML SDV IV SCH ×3 (06:12→22:37)
[2017-11-23] MEDS: BUSPIRONE HCL 10 MG TABLET PO SCH ×3 (06:12→22:18)
[2017-11-23 06:18] LABS: ALANINE AMINOTRANSFERASE 53 U/L (9-52); ALBUMIN 3.8 g/dL (3.5-5.0); ALKALINE PHOSPHATASE 142 U/L (38-126); ANION GAP 14 (5-19); ASPARTATE AMINO TRANSFERASE 42 U/L (14-36); BILIRUBIN,DIRECT 0.4 mg/dL (0.0-0.4); BILIRUBIN,TOTAL 0.4 mg/dL (0.2-1.3); BLOOD UREA NITROGEN 9 mg/dL (7-20); CALCIUM 9.5 mg/dL (8.4-10.2); CARBON DIOXIDE 28 mmol/L (22-30); CHLORIDE 105 mmol/L (98-107); GLUCOSE 128 mg/dL (75-110); POTASSIUM 4.1 mmol/L (3.6-5.0); SODIUM 147.3 mmol/L (137-145); TOTAL PROTEIN 7.2 g/dL (6.3-8.2)
[2017-11-23] MEDS: SUCRALFATE 1 GM TABLET PO SCH ×4 (07:30→22:17)
[2017-11-23] MEDS ORDERED: IPRATROPIUM/ALBUTEROL 0.5-2.5 MG/3 ML AMPUL NEB ONE (08:00)
[2017-11-23] MEDS: BUDESONIDE NEB 0.5 MG/2 ML AMPUL NEB SCH ×2 (10:00→19:44)
[2017-11-23] MEDS: KETOROLAC TROMETHAMINE INJ/PF 30 MG/1 ML SDV IV PRN (10:45)
[2017-11-23] MEDS: ENOXAPARIN SODIUM INJ 30 MG/0.3 ML DISP.SYRIN SUBCUT SCH (10:45)
[2017-11-23] MEDS: LIDOCAINE 5% (700 MG) TRANSDERMAL ADH..PATCH TP SCH (10:45)
[2017-11-23] MEDS: NICOTINE 21 MG/24 HR PATCH.TD24 TD SCH (10:45)
[2017-11-23] MEDS: FLUTICASONE NASAL SPRAY 50 MCG/SPRY 120 SPRAY/16 GM NAREB SCH (10:53)
[2017-11-23] MEDS: OXYCODONE HCL IR 5 MG TABLET PO PRN ×3 (11:41→22:22)
--- NOTE | 2017-11-23 12:18 | ST Inp Modified Barium Swallow ---
Medical Diagnosis - Medical Diagnoses Medical Diagnosis Description & ICD-10 Code(s): Acute and chronic respiratory failure (J96.21), dysphagia (R13.10) Inpatient [facility] [place] - General Date: 11/23/17 Date of Onset: 07/05/02 - patient reports avoiding certain foods and occasional difficulty swallowing starting 15 years ago - History History Obtained From: Patient -: Medical Medications: Medications Reviewed Allergies: No known allergies - Subjective Current Nutritional Means: PO Current PO Diet: Regular - with thin liquids Current Symptoms: Coughing, c/o Globus sensation - Objective Assessment: Upright, Left Lateral - Food Trials Food Trials Used: Thin liquids, Pureed, Regular The Patient: Was Able to Self Feed - Assessment Labial Function: Within Normal Limits Lingual Function: Within Normal Limits Mandibular Function: Within Normal Limits Dentition: Full Velo-Pharyngeal Function: Not assessed Laryngeal Function: clear voicing - Pharyngeal Stage Initiation of Pharyngeal Stage: Normal Decreased Laryngeal Elevation: No Reduced Velo-Pharyngeal Closure: no Reduced Pressure Generation: No Reduced Tongue Base Retraction: Yes - mild Pre-Swallowing Pooling in Valleculae: None Pre-Swallowing Pooling in Pyriforms: None Reduced Thyro-Hyiod Approximation: No Reduced Epiglottic Excursion: No Reduced Pharyngeal Peristalsis: No Multiple Swallows With: Cleared w/ Dry Swallow Post Swallow Residuals in Valleculae: Mild Post Swallow Residuals in Pyriforms: None Post Swallow Residuals: tongue-base - Esophageal Stage Cricophageal Function: Normal Upper Esophageal Transit: Normal Cervical Osteophytes Noted: No - Impression/Summary Laryngeal Penetration: No Tracheal Aspiration: no Effective Compensatory Strategies: hard swallow Patient Presents With: Pharyngeal stage dysph., Mild-Moderate - mild Risk of Aspiration: Minimal Risk of Nutritional Compromise: WNL - Recommendations NPO: no Solid Diet Recommendations: Regular Liquid Diet Recommendations: Thin Regular Diet: Yes Strict Aspitarion Precautions: Yes Dysphagia Therapy with L[employer] FACILITATOR: No Recommended Techniques: Fully Upright During Meal, Small Bites and Sips, Alternate Bites/Sips Supervision: Independent - Time Total Time: 15 Total Timed Minutes: 15
--- NOTE | 2017-11-23 12:20 | RADIOLOGY REPORT (SQ) ---
EXAM DESCRIPTION: OLIVIA SWALLOW COMPLETED DATE/TIME: 11/23/2017 11:30 am REASON FOR STUDY: chocking COMPARISON: None. TECHNIQUE: Videofluoroscopic swallowing examination was performed in conjunction with speech patholo gy. Videofluoroscopic imaging was obtained and reviewed and these are the findings: RADIATION DOSE: 1 minutes 38 seconds of fluoroscopy was used. 1 images saved to PACS. LIMITATIONS: None FINDINGS: The patient was brought into the fluoro room and placed upright on a modified barium swall ow chair. The patient was then given multiple consistencies mixed with barium to swallow under live fluoroscopic video guidance. According to the Speech Pathologist there was no penetration or aspirat ion. IMPRESSION: NO EVIDENCE OF PENETRATION OR ASPIRATION.PLEASE SEE SPEECH PATHOLOGIST REPORT FOR OTHER FINDINGS AND RECOMMENDATIONS. COMMENT: Quality ID [id number]: Final reports for procedures using fluoroscopy that document radiation exp osure indices, or exposure time and number of fluorographic images (if radiation exposure indices are not available) TECHNICAL DOCUMENTATION: JOB ID: [id number] [employer]- All Rights Reserved Reading location - IP/workstation name: [email or web address]
[2017-11-23] MEDS: FLUOXETINE HCL 20 MG CAPSULE PO SCH (12:45)
[2017-11-23] MEDS: GUAIFENESIN 600 MG TABLET.SA PO SCH ×2 (13:05→22:19)
[2017-11-23] MEDS: DONEPEZIL HCL 5 MG TABLET PO SCH (13:05)
[2017-11-23] MEDS: BENZONATATE 100 MG CAPSULE PO SCH ×2 (13:05→17:14)
[2017-11-23] MEDS: LEVOFLOXACIN 750 MG/D5W RTU 750 MG/150 ML RTUPB IV SCH (13:05)
--- NOTE | 2017-11-23 13:33 | PDOC CONSULTATION ---
Consultation Consult Date: 11/22/17 Attending physician:: KATLIN SMITH Consult reason:: Exacerbation of COPD History of Present Illness Admission Date/PCP: 11/21/17 14:44 LISA STARK MD History of Present Illness: AMELIE EDMOND is a 67 year old female,presented shortness of breath cough productive of yellow phlegm fevers 3 days she states she had recently gone to [place] and got caught in the rain set with clothing on her way home subsequently started to feel poorly with fevers chills and cough productive as above of yellow sputum she denies wearing oxygen at home with shortness of breath she does admit to some dips and exertion but she would not commit to the idea that her dyspnea happened during activities of daily living. Her PPD status is unknown she has had no history of chronic lung disease as a child or adolescent. She admits to exposure large amounts of passive smoke as an adult she herself is smoked for 40 years half a pack a day and continues to smoke a half a pack a day. She denies any no exposure to potential respiratory toxins. She has no pets as stated above she just recently returned from a trip to [facility]. She is really has some tightness in her chest sleeps on 3-4 pillows occasional PND occasional nocturnal cough occasional edema. Questionable snoring restless sleep nocturia 1-2 times per night unrestful sleep and daytime somnolence. Past Medical History Cardiac Medical History: Reports: Hyperlipidema Denies: Atrial Fibrillation, Congestive Heart Failure, Coronary Artery Disease, Myocardial Infarction, Hypertension, Peripheral Vascular Disease, Pulmonary Embolism, Heart Murmur Pulmonary Medical History: Reports: Asthma - NO RECENT HOSPITALIZATION/ ALBUTEROL PRN, Chronic Obstructive Pulmonary Disease (COPD) Denies: Bronchitis, Pneumonia, Respiratory Failure, Sleep Apnea, Tuberculosis Neurological Medical History: Reports: Ischemic CVA, Migraine Denies: Seizures Renal/ Medical History: Denies: End Stage Renal Disease Malignancy Medical History: Denies: Lung Cancer GI Medical History: Reports: Gastroesophageal Reflux Disease Denies: Crohn's Disease, Hepatitis, Hiatal Hernia Musculoskeltal Medical History: Reports: Arthritis - back, Fibromyalgia Skin Medical History: Denies: Psoriasis Psychiatric Medical History: Reports: Depression Denies: Bipolar Disorder, Post Traumatic Stress Disorder Traumatic Medical History: Denies: Pneumothorax, Stab Wound, Traumatic Brain Injury Hematology: Denies: Anemia, Sickle Cell Disease Infectious Medical History: Denies: Vancomycin-Resistant Enterococci Past Surgical History Past Surgical History: Reports: Cholecystectomy, Hysterectomy, Tonsillectomy, Tubal Ligation Denies: Amputation, Appendectomy, Section, Colostomy, Coronary Artery Bypass Graft, Gastric Bypass Surgery, Herniorrhaphy, Mastectomy, Pacemaker Social History Information Source: Patient, [facility] Records Lives with: Family Smoking Status: Current Every Day Smoker Cigarettes Packs Per Day: 0.5 - 0.5-1 ppd Number of Years Smokin Passive smoke exposure as: Both Frequency of Alcohol Use: None Hx Recreational Drug Use: No Drugs: None Hx Prescription Drug Abuse: No Do you have pets?: No Have you had any respiratory illnesses as a child?: No Have you been exposed to any sick contacts recently?: No Have you had any recent respiratory illnesses?: No Have you travelled outside of [place] in the past 12 months?: Yes - [facility] - Advance Directive Resuscitation Status: Do Not Resuscitate Family History Family History: CAD, DM, Malignancy - BREAST CANCER - 2 SISTERS Parental Family History Reviewed: Yes Children Family History Reviewed: Yes Sibling(s) Family History Reviewed.: Yes Medication/Allergy Home Medications: Quetiapine Fumarate [Seroquel 100 mg Tablet] 200 mg PO QHS 09/15/14 Diazepam [Valium 5 mg Tablet] 10 mg PO BIDP PRN 07/09/15 Fluoxetine HCl [Prozac] 80 mg PO DAILY 09/17/17 Gabapentin 400 mg PO Q8 09/17/17 Sucralfate [Carafate 1 gm Tablet] 1 gm PO ACHS 09/17/17 Albuterol Sulfate [Ventolin HFA] 2 puff IH Q6HP PRN 11/21/17 Amox Tr/Potassium Clavulanate [Augmentin 875-125 mg Tablet] 1 tab PO BID MDD FILLED 11/18 FOR 10DS 11/21/17 Buspirone HCl [Buspar 15 mg Tablet] 15 mg PO Q8 11/21/17 Butalb/Acetaminophen/Caffeine [Fioricet 50-300-40 mg Capsule] 1 cap PO Q4HP PRN 11/21/17 Donepezil HCl [Aricept] 10 mg PO DAILY 11/21/17 Fluticasone Propionate [Flonase Nasal [place] 50 Mcg/[place] 16 gm] 2 sprays NAREB DAILY 11/21/17 Fluticasone/Salmeterol [Advair 250-50 Diskus 28 dose] 1 inh IH Q12 11/21/17 Meloxicam [Mobic] 15 mg PO DAILY 11/21/17 Methylprednisolone [Medrol Dosepack (4 mg/Tab) 21 Tab/Dosepak] 4 mg PO ASDIR PRN MDD FILLED 11/18 FOR 6DS 11/21/17 Montelukast Sodium [Singulair 10 mg Tablet] 10 mg PO QHS 11/21/17 Rosuvastatin Calcium [Crestor 10 mg Tablet] 10 mg PO QHS 11/21/17 Allergies/Adverse Reactions: No Known Allergies Allergy (Verified 11/21/17 09:13) Review of Systems Constitutional: PRESENT: anorexia, chills, fever(s). ABSENT: headache(s), night sweats, weight gain, weight loss Eyes: ABSENT: visual disturbances Ears: ABSENT: hearing changes Nose, Mouth, and Throat: ABSENT: mouth pain Cardiovascular: PRESENT: orthropnea. ABSENT: palpitations Respiratory: PRESENT: cough, dyspnea. ABSENT: hemoptysis Gastrointestinal: PRESENT: dysphagia, melena. ABSENT: abdominal pain, bloating , coffee ground emesis, heartburn, hematemesis, hematochezia Genitourinary: PRESENT: nocturia. ABSENT: dysuria, hematuria Musculoskeletal: ABSENT: deformity, joint swelling Integumentary: ABSENT: pruritus, rash Neurological: ABSENT: abnormal gait, abnormal movements, abnormal speech, confusion, frequent falls, lack of coordination, memory loss Psychiatric: ABSENT: hallucinations, homidical ideation, suicidal ideation Endocrine: ABSENT: cold intolerance, heat intolerance Hematologic/Lymphatic: ABSENT: easy bruising Physical Exam Vital Signs: Temp Pulse Resp BP Pulse Ox 102.6 F H 95 20 134/38 H 97 11/22/17 07:43 11/22/17 07:43 11/22/17 07:43 11/22/17 07:43 11/22/17 09:17 Pulse Oximeter Continuous Start: 11/22/17 08: 35 Freq: RTQ4 Status: Active Document 11/22/17 09:17 TPO (Rec: 11/22/17 09:38 TPO [email or web address]) Pulse Oximetry Assessment Oxygen Saturation (92-100) 97 Oxygen Flow Rate (L/min) 3 Oxygen Delivery Method Nasal Cannula Fraction of Inspired Oxygen (FIO2) 32 Equipment Usage Initial Set Up Continuous Pulse Oximeter 24 Hour Charge Charge Now Continuous SpO2 Machine # 11 Intake & Output 11/21/17 11/22/17 11/23/17 06:59 06:59 06:59 Intake Total 610 Output Total 0 Balance 610 Weight 73.6 kg General appearance: PRESENT: no acute distress, cooperative, disheveled Head exam: PRESENT: atraumatic, normocephalic Eye exam: PRESENT: conjunctiva pale, EOMI, PERRLA. ABSENT: nystagmus, periorbital swelling, scleral icterus Mouth exam: PRESENT: dry mucosa, neck supple, tongue midline Neck exam: ABSENT: carotid bruit, JVD, lymphadenopathy, thyromegaly, tracheal deviation, tracheostomy Respiratory exam: PRESENT: decreased breath sounds, prolonged expiratory phas, rhonchi, symmetrical, unlabored, wheezes. ABSENT: rales, retraction Cardiovascular exam: PRESENT: RRR, +S1, +S2 Pulses: PRESENT: normal radial pulses GI/Abdominal exam: PRESENT: normal bowel sounds, soft Extremities exam: PRESENT: full ROM. ABSENT: calf tenderness, clubbing, joint swelling Musculoskeletal exam: PRESENT: full ROM. ABSENT: dislocation Neurological exam: PRESENT: alert, awake Psychiatric exam: PRESENT: normal mood Skin exam: PRESENT: dry, warm Results Laboratory Results: 11/22/17 06:49 11/22/17 06:49 11/21/17 11/22/17 11/22/17 17:40 06:49 06:49 WBC 11.6 H RBC 4.08 Hgb 12.6 Hct 37.8 MCV 93 MCH 30.8 MCHC 33.2 RDW 14.9 H Plt Count 240 Seg Neutrophils % 83.2 H Lymphocytes % 11.4 L Monocytes % 5.4 Eosinophils % 0.0 Basophils % 0.0 Absolute Neutrophils 9.6 H Absolute Lymphocytes 1.3 Absolute Monocytes 0.6 Absolute Eosinophils 0.0 Absolute Basophils 0.0 Carbonic Acid 1.38 H HCO3/H2CO3 Ratio 16:1 ABG pH 7.33 L ABG pCO2 45.7 H ABG pO2 75.3 L ABG HCO3 23.4 ABG O2 Saturation 94.1 ABG Base Excess -2.7 FiO2 3L Sodium 146.6 H Potassium 4.4 Chloride 107 Carbon Dioxide 26 Anion Gap 14 BUN 9 Creatinine 0.42 L Est GFR ( Amer) > 60 Est GFR (Non-Af Amer) > 60 Glucose 78 Calcium 9.8 Phosphorus 3.2 Magnesium 1.8 11/22/17 06:49 Troponin I < 0.012 Impressions: Chest X-Ray 11/22/17 00:00 IMPRESSION: NO ACUTE RADIOGRAPHIC FINDING IN THE CHEST. Assessment & Plan - Diagnosis (1) COPD with acute exacerbation Is this a current diagnosis for this admission?: Yes (2) HTN (hypertension) Qualifiers: Hypertension type: essential hypertension Qualified Code(s): I10 - Essential (primary) hypertension Is this a current diagnosis for this admission?: Yes Plan: Stop smoking (4) Tobacco abuse counseling Is this a current diagnosis for this admission?: Yes Plan: Discussed the risk and dangers associated with continued tobacco useDiscussed the risk and dangers associated with continued tobacco use
--- NOTE | 2017-11-23 13:36 | PDOC PROGRESS REPORT ---
Subjective Progress Note for:: 11/23/17 Subjective:: I am a little better Reason For Visit: COPD EXACERBATION Physical Exam Vital Signs: Temp Pulse Resp BP Pulse Ox 98.7 F 75 20 130/65 H 95 11/23/17 11:48 11/23/17 11:48 11/23/17 11:48 11/23/17 11:48 11/23/17 11:48 Pulse Oximeter Continuous Start: 11/22/17 08: 35 Freq: RTQ4 Status: Active Document 11/23/17 09:59 [facility] (Rec: 11/23/17 10:16 [facility] [email or web address]) Pulse Oximetry Assessment Oxygen Saturation (92-100) 98 Oxygen Flow Rate (L/min) 3 Oxygen Delivery Method Nasal Cannula Equipment Usage Equipment in Use Continuous SpO2 Machine # 11 Intake & Output 11/22/17 11/23/17 11/24/17 06:59 06:59 06:59 Intake Total 610 1598 Output Total 0 Balance 610 1598 Weight 73.6 kg 74.9 kg General appearance: PRESENT: no acute distress, cooperative, disheveled Head exam: PRESENT: atraumatic, normocephalic Eye exam: PRESENT: conjunctiva pale, EOMI, PERRLA. ABSENT: nystagmus, periorbital swelling, scleral icterus Mouth exam: PRESENT: moist, neck supple, tongue midline Neck exam: ABSENT: carotid bruit, JVD, lymphadenopathy, thyromegaly, tracheal deviation, tracheostomy Respiratory exam: PRESENT: decreased breath sounds, prolonged expiratory phas, rales, rhonchi, unlabored, wheezes. ABSENT: retraction, stridor, tachypnea Cardiovascular exam: PRESENT: RRR, +S1, +S2 Pulses: PRESENT: normal radial pulses GI/Abdominal exam: PRESENT: normal bowel sounds, soft Extremities exam: PRESENT: full ROM. ABSENT: calf tenderness, clubbing, joint swelling Musculoskeletal exam: PRESENT: full ROM. ABSENT: deformity, dislocation Neurological exam: PRESENT: alert, awake Psychiatric exam: PRESENT: normal mood Skin exam: PRESENT: dry, warm Results Laboratory Results: 11/23/17 05:39 11/23/17 05:39 11/23/17 11/23/17 05:39 05:39 WBC 10.1 RBC 3.89 Hgb 12.2 Hct 35.6 L MCV 91 MCH 31.3 MCHC 34.2 RDW 14.5 H Plt Count 255 Sodium 147.3 H Potassium 4.1 Chloride 105 Carbon Dioxide 28 Anion Gap 14 BUN 9 Creatinine 0.41 L Est GFR ( Amer) > 60 Est GFR (Non-Af Amer) > 60 Glucose 128 H Calcium 9.5 Total Bilirubin 0.4 AST 42 H ALT 53 H Alkaline Phosphatase 142 H Total Protein 7.2 Albumin 3.8 11/22/17 11/22/17 11/22/17 06:49 12:35 18:05 Troponin I < 0.012 < 0.012 < 0.012 Impressions: Chest X-Ray 11/22/17 00:00 IMPRESSION: NO ACUTE RADIOGRAPHIC FINDING IN THE CHEST. Modified Barium Swallow 11/23/17 00:00 IMPRESSION: NO EVIDENCE OF PENETRATION OR ASPIRATION.PLEASE SEE SPEECH PATHOLOGIST REPORT FOR OTHER FINDINGS AND RECOMMENDATIONS. Assessment & Plan - Diagnosis (1) COPD with acute exacerbation Is this a current diagnosis for this admission?: Yes Plan: Continue current bronchodilator therapy (2) HTN (hypertension) Qualifiers: Hypertension type: essential hypertension Qualified Code(s): I10 - Essential (primary) hypertension Is this a current diagnosis for this admission?: Yes Plan: Stop smoking (3) Tobacco abuse Is this a current diagnosis for this admission?: Yes (4) Tobacco abuse counseling Is this a current diagnosis for this admission?: Yes
--- NOTE | 2017-11-23 16:20 | PDOC PROGRESS REPORT ---
<MELODY PHOENIX - Last Filed: 11/23/17 16:05> Subjective Progress Note for:: 11/23/17 Subjective:: The patient is a 67-year-old female with a past medical history of COPD, 50-pack -year history, hypertension, hyperlipidemia, depression and anxiety who was admitted on 11/21/17 for a severe COPD exacerbation. The patient is seen on morning rounds. She is found sitting upright in bed high Stern's on supplemental oxygen at 3 L/min. I have just received a call from respiratory therapy stating that her PFT testing had to be suspended secondary to inability to forcibly exhale. The patient reports that she is not feeling any better and endorses continued dyspnea, cough, and right posterior chest wall pain with cough and deep inspiration. The patient denies fever, chills, dizziness, typical cardiac chest pain, orthopnea, abdominal pain, nausea vomiting diarrhea. She is frustrated by her continued dyspnea, but otherwise has no new questions or concerns. Reason For Visit: COPD EXACERBATION Physical Exam Vital Signs: Temp Pulse Resp BP Pulse Ox 99.2 F 74 22 H 128/47 H 98 11/23/17 07:42 11/23/17 09:59 11/23/17 09:59 11/23/17 07:42 11/23/17 09:59 Pulse Oximeter Continuous Start: 11/22/17 08: 35 Freq: RTQ4 Status: Active Document 11/23/17 09:59 [facility] (Rec: 11/23/17 10:16 [facility] [email or web address]) Pulse Oximetry Assessment Oxygen Saturation (92-100) 98 Oxygen Flow Rate (L/min) 3 Oxygen Delivery Method Nasal Cannula Equipment Usage Equipment in Use Continuous SpO2 Machine # 11 Intake & Output 11/22/17 11/23/17 11/24/17 06:59 06:59 06:59 Intake Total 610 1598 Output Total 0 Balance 610 1598 Weight 73.6 kg 74.9 kg General appearance: PRESENT: no acute distress, disheveled, well-developed, well -nourished, other - Overweight Head exam: PRESENT: atraumatic, normocephalic Eye exam: PRESENT: conjunctiva pink, EOMI, PERRLA. ABSENT: scleral icterus Ear exam: PRESENT: normal external ear exam Mouth exam: PRESENT: moist, tongue midline Neck exam: ABSENT: carotid bruit, JVD, lymphadenopathy, thyromegaly Respiratory exam: PRESENT: prolonged expiratory phas, rhonchi, symmetrical, tachypnea, wheezes, other - Supplemental oxygen. ABSENT: rales Cardiovascular exam: PRESENT: RRR, +S1, +S2. ABSENT: diastolic murmur, rubs, systolic murmur Pulses: PRESENT: normal dorsalis pedis pul Vascular exam: PRESENT: normal capillary refill GI/Abdominal exam: PRESENT: normal bowel sounds, soft. ABSENT: distended, guarding, mass, organolmegaly, rebound, tenderness Rectal exam: PRESENT: deferred Extremities exam: PRESENT: full ROM. ABSENT: calf tenderness, clubbing, pedal edema Neurological exam: PRESENT: alert, awake, oriented to person, oriented to place , oriented to time, oriented to situation, CN II-XII grossly intact. ABSENT: motor sensory deficit Psychiatric exam: PRESENT: appropriate affect, normal mood. ABSENT: homicidal ideation, suicidal ideation Skin exam: PRESENT: dry, intact, warm. ABSENT: cyanosis, rash Results Laboratory Results: 11/23/17 05:39 11/23/17 05:39 11/23/17 11/23/17 05:39 05:39 WBC 10.1 RBC 3.89 Hgb 12.2 Hct 35.6 L MCV 91 MCH 31.3 MCHC 34.2 RDW 14.5 H Plt Count 255 Sodium 147.3 H Potassium 4.1 Chloride 105 Carbon Dioxide 28 Anion Gap 14 BUN 9 Creatinine 0.41 L Est GFR ( Amer) > 60 Est GFR (Non-Af Amer) > 60 Glucose 128 H Calcium 9.5 Total Bilirubin 0.4 AST 42 H ALT 53 H Alkaline Phosphatase 142 H Total Protein 7.2 Albumin 3.8 11/22/17 11/22/17 11/22/17 06:49 12:35 18:05 Troponin I < 0.012 < 0.012 < 0.012 Impressions: Chest X-Ray 11/22/17 00:00 IMPRESSION: NO ACUTE RADIOGRAPHIC FINDING IN THE CHEST. Assessment & Plan - Diagnosis (1) Acute and chronic respiratory failure QualifierTitle: Respiratory failure complication: hypoxia and hypercapnia Qualified Code(s): J96.21 - Acute and chronic respiratory failure with hypoxia ; J96.22 - Acute and chronic respiratory failure with hypercapnia; J96.22 - Acute and chronic respiratory failure with hypercapnia; J96.22 - Acute and chronic respiratory failure with hypercapnia Is this a current diagnosis for this admission?: Yes Plan: Secondary to COPD exacerbation and upper respiratory infection. Chest x-ray demonstrated mild pulmonary vascular congestion. Initial ABG showed hypercapnic respiratory acidosis with metabolic compensation. Modified barium swallow study is negative for aspiration. PFT pending. Blood cultures have no growth to date. Sputum culture demonstrated normal yun. The patient is admitted to the medical floor on continuous cardiac telemetry. She is provided supplemental oxygen to maintain oxygen saturations greater than 88% BiPAP as needed. She is provided scheduled and as needed nebulizer treatments. Continue IV Solu-Medrol. She is empirically placed on IV Levaquin given the severity of her symptoms; day #2 Incentive spirometry and flutter valve to bedside. We will attempt to repeat inpatient PFT as her acute symptoms improved. Continue Mucinex, Tessalon Perles, and Singulair. Pulmonology has been consulted; appreciate Dr. Childress evaluation recommendations. (2) COPD with acute exacerbation Is this a current diagnosis for this admission?: Yes Plan: The patient endorses a 50 year pack history but denies known diagnosis of COPD. Plan as above. (3) Cough Is this a current diagnosis for this admission?: Yes Plan: Secondary to COPD exacerbation/bronchitis and associated with lateral/posterior chest wall pain. The patient does have purulent sputum production, however, sputum cultures were positive for normal respiratory yun only. Continue Mucinex. Continue Tessalon Perles Tylenol, lidocaine patches, and as needed oxycodone as needed for pain (4) HTN (hypertension) QualifierTitle: Hypertension type: essential hypertension Qualified Code( s): I10 - Essential (primary) hypertension Is this a current diagnosis for this admission?: Yes Plan: The patient endorses a history of hypertension but is not on home antihypertensive medications. She is normotensive at present. As needed IV hydralazine for blood pressure control. (5) HLD (hyperlipidemia) QualifierTitle: Hyperlipidemia type: unspecified Qualified Code(s): E78.5 - Hyperlipidemia, unspecified Is this a current diagnosis for this admission?: Yes Plan: Continue home dose statin. (6) Depression QualifierTitle: Depression Type: reactive depression Qualified Code(s): F32.9 - Major depressive disorder, single episode, unspecified Is this a current diagnosis for this admission?: Yes Plan: Continue home dose BuSpar and Prozac. She denies suicidal and homicidal ideation. (9) DNR (do not resuscitate) Is this a current diagnosis for this admission?: Yes - Time Time Spent with patient: 15-24 minutes Medications reviewed and adjusted accordingly: Yes - Inpatient Certification Based on my medical assessment, after consideration of the patient's comorbidities, presenting symptoms, or acuity I expect that the services needed warrant INPATIENT care.: Yes I certify that my determination is in accordance with my understanding of Medicare's requirements for reasonable and necessary INPATIENT services [42 CFR 412.3e].: Yes Medical Necessity: Need Close Monitoring Due to Risk of Patient Decompensation, Need For Continuous Telemetry Monitoring, Need for Nebulizer Therapy and Monitoring of Response <MILLIENOVEMBER C - Last Filed: 12/05/17 18:19> Subjective Reason For Visit: COPD EXACERBATION Physical Exam Vital Signs: Temp Pulse Resp BP Pulse Ox 98.4 F 81 12 122/64 94 12/01/17 17:43 12/01/17 17:43 12/01/17 17:43 12/01/17 17:43 12/01/17 17:43 Pulse Oximeter Continuous Start: 11/22/17 08: 35 Freq: RTQ4 Status: Discharge Document 12/01/17 16:29 [facility] (Rec: 12/01/17 16:30 [facility] [email or web address]) Pulse Oximetry Assessment Oxygen Saturation (92-100) 94 Oxygen Flow Rate (L/min) 2 Oxygen Delivery Method Nasal Cannula Fraction of Inspired Oxygen (FIO2) 28 Equipment Usage Equipment in Use Continuous SpO2 Machine # 11 Results Laboratory Results: 12/01/17 05:15 12/01/17 05:15 11/22/17 11/22/17 11/22/17 06:49 12:35 18:05 Troponin I < 0.012 < 0.012 < 0.012 NT-Pro-B Natriuret Pep 11/28/17 06:04 Troponin I NT-Pro-B Natriuret Pep 45 Impressions: Chest X-Ray 11/22/17 00:00 IMPRESSION: NO ACUTE RADIOGRAPHIC FINDING IN THE CHEST. Modified Barium Swallow 11/23/17 00:00 IMPRESSION: NO EVIDENCE OF PENETRATION OR ASPIRATION.PLEASE SEE SPEECH PATHOLOGIST REPORT FOR OTHER FINDINGS AND RECOMMENDATIONS. Sinuses CT 11/25/17 00:00 IMPRESSION: Diffuse inflammatory changes throughout the paranasal sinuses as above. No nasal masses. No aggressive bony destruction nasal cavity worrisome for tumor or aggressive infection. Chest CT 11/27/17 10:20 IMPRESSION: DIFFUSE GROUND-GLASS OPACITIES SCATTERED THROUGHOUT BOTH LUNGS. NONSPECIFIC APPEARANCE. POSSIBLE ETIOLOGIES INCLUDE INFLAMMATION, INFECTION, OR PULMONARY EDEMA. Assessment & Plan - Plan Summary Plan Summary: Co-signing for Melody Phoenix NP
[2017-11-23] MEDS: ATORVASTATIN CALCIUM 20 MG TABLET PO SCH (22:17)
[2017-11-23] MEDS: MONTELUKAST SODIUM 10 MG TABLET PO SCH (22:18)
[2017-11-24] MEDS: IPRATROPIUM/ALBUTEROL 0.5-2.5 MG/3 ML AMPUL NEB SCH ×7 (00:13→23:30)
[2017-11-24] MEDS: DEXTROSE 5%-WATER 1000 ML 1,000 ML IV PRN (01:16)
[2017-11-24 05:45] LABS: HEMATOCRIT 34.7 % (36.0-47.0); HEMOGLOBIN 11.7 g/dL (12.0-15.5); MEAN CORPUSCULAR HEMOGLOBIN 30.9 pg (27.0-33.4); MEAN CORPUSCULAR HGB CONC 33.8 g/dL (32.0-36.0); MEAN CORPUSCULAR VOLUME 92 fl (80-97); PLATELET COUNT 275 10^3/uL (150-450); RED BLOOD COUNT 3.79 10^6/uL (3.72-5.28); RED CELL DISTRIBUTION WIDTH 14.2 % (11.5-14.0)
[2017-11-24] MEDS: BUSPIRONE HCL 10 MG TABLET PO SCH ×3 (06:05→21:58)
[2017-11-24] MEDS: METHYLPREDNISOLONE INJ 125 MG/2 ML SDV IV SCH ×3 (06:05→21:58)
[2017-11-24 06:13] LABS: ALANINE AMINOTRANSFERASE 42 U/L (9-52); ALBUMIN 3.8 g/dL (3.5-5.0); ALKALINE PHOSPHATASE 133 U/L (38-126); ANION GAP 13 (5-19); ASPARTATE AMINO TRANSFERASE 28 U/L (14-36); BILIRUBIN,DIRECT 0.3 mg/dL (0.0-0.4); BILIRUBIN,TOTAL 0.3 mg/dL (0.2-1.3); BLOOD UREA NITROGEN 9 mg/dL (7-20); CALCIUM 9.8 mg/dL (8.4-10.2); CARBON DIOXIDE 27 mmol/L (22-30); CHLORIDE 105 mmol/L (98-107); GLUCOSE 135 mg/dL (75-110); TOTAL PROTEIN 7.3 g/dL (6.3-8.2)
[2017-11-24] MEDS: SUCRALFATE 1 GM TABLET PO SCH ×4 (07:21→21:59)
[2017-11-24] MEDS: BUDESONIDE NEB 0.5 MG/2 ML AMPUL NEB SCH ×2 (07:49→19:42)
[2017-11-24] MEDS: FLUOXETINE HCL 20 MG CAPSULE PO SCH (09:18)
[2017-11-24] MEDS: ENOXAPARIN SODIUM INJ 30 MG/0.3 ML DISP.SYRIN SUBCUT SCH (09:18)
[2017-11-24] MEDS: LIDOCAINE 5% (700 MG) TRANSDERMAL ADH..PATCH TP SCH (09:19)
[2017-11-24] MEDS: BENZONATATE 100 MG CAPSULE PO SCH ×3 (09:19→17:08)
[2017-11-24] MEDS: NICOTINE 21 MG/24 HR PATCH.TD24 TD SCH (09:19)
[2017-11-24] MEDS: DONEPEZIL HCL 5 MG TABLET PO SCH (09:19)
[2017-11-24] MEDS: GUAIFENESIN 600 MG TABLET.SA PO SCH ×2 (09:19→21:59)
[2017-11-24] MEDS: OXYCODONE HCL IR 5 MG TABLET PO PRN ×2 (09:19→14:34)
[2017-11-24] MEDS: FLUTICASONE NASAL SPRAY 50 MCG/SPRY 120 SPRAY/16 GM NAREB SCH (09:19)
--- NOTE | 2017-11-24 13:08 | PDOC PROGRESS REPORT ---
Subjective Progress Note for:: 11/24/17 Subjective:: I am ok Reason For Visit: COPD EXACERBATION Physical Exam Vital Signs: Temp Pulse Resp BP Pulse Ox 98.5 F 69 24 H 138/58 H 99 11/24/17 12:07 11/24/17 12:07 11/24/17 12:07 11/24/17 12:07 11/24/17 12:07 Pulse Oximeter Continuous Start: 11/22/17 08: 35 Freq: RTQ4 Status: Active Document 11/24/17 11:32 [facility] (Rec: 11/24/17 11:58 [facility] [email or web address]) Pulse Oximetry Assessment Oxygen Saturation (92-100) 94 Oxygen Flow Rate (L/min) 3 Oxygen Delivery Method Nasal Cannula Fraction of Inspired Oxygen (FIO2) 32 Equipment Usage Equipment in Use Continuous SpO2 Machine # N Intake & Output 11/23/17 11/24/17 11/25/17 06:59 06:59 06:59 Intake Total 1598 2804 Balance 1598 2804 Weight 74.9 kg 75.2 kg General appearance: PRESENT: no acute distress, cooperative, disheveled Head exam: PRESENT: normocephalic Eye exam: PRESENT: conjunctiva pale, EOMI, PERRLA. ABSENT: nystagmus, periorbital swelling, scleral icterus Mouth exam: PRESENT: moist, neck supple, tongue midline Neck exam: ABSENT: carotid bruit, JVD, lymphadenopathy, thyromegaly, tracheal deviation, tracheostomy Respiratory exam: PRESENT: decreased breath sounds, prolonged expiratory phas, rales, rhonchi, unlabored, wheezes. ABSENT: retraction, stridor Cardiovascular exam: PRESENT: RRR, +S1, +S2 Pulses: PRESENT: normal radial pulses GI/Abdominal exam: PRESENT: normal bowel sounds, soft Extremities exam: ABSENT: calf tenderness, clubbing, joint swelling Musculoskeletal exam: ABSENT: deformity, dislocation Neurological exam: PRESENT: alert, awake Psychiatric exam: PRESENT: flat affect Skin exam: PRESENT: dry, warm Results Laboratory Results: 11/24/17 03:43 11/24/17 03:43 11/24/17 11/24/17 03:43 03:43 WBC 13.0 H RBC 3.79 Hgb 11.7 L Hct 34.7 L MCV 92 MCH 30.9 MCHC 33.8 RDW 14.2 H Plt Count 275 Sodium 145.0 Potassium 4.0 Chloride 105 Carbon Dioxide 27 Anion Gap 13 BUN 9 Creatinine 0.44 L Est GFR ( Amer) > 60 Est GFR (Non-Af Amer) > 60 Glucose 135 H Calcium 9.8 Total Bilirubin 0.3 AST 28 ALT 42 Alkaline Phosphatase 133 H Total Protein 7.3 Albumin 3.8 11/22/17 11/22/17 11/22/17 06:49 12:35 18:05 Troponin I < 0.012 < 0.012 < 0.012 Impressions: Chest X-Ray 11/22/17 00:00 IMPRESSION: NO ACUTE RADIOGRAPHIC FINDING IN THE CHEST. Modified Barium Swallow 11/23/17 00:00 IMPRESSION: NO EVIDENCE OF PENETRATION OR ASPIRATION.PLEASE SEE SPEECH PATHOLOGIST REPORT FOR OTHER FINDINGS AND RECOMMENDATIONS. Assessment & Plan - Diagnosis (1) COPD with acute exacerbation Is this a current diagnosis for this admission?: Yes Plan: Continue current bronchodilator therapy (2) HTN (hypertension) Qualifiers: Hypertension type: essential hypertension Qualified Code(s): I10 - Essential (primary) hypertension Is this a current diagnosis for this admission?: Yes Plan: Stop smoking (3) Tobacco abuse Is this a current diagnosis for this admission?: Yes (4) Tobacco abuse counseling Is this a current diagnosis for this admission?: Yes Plan: Discussed the risk and dangers associated with continued tobacco useDiscussed the risk and dangers associated with continued tobacco use
--- NOTE | 2017-11-24 13:24 | PDOC PROGRESS REPORT ---
Subjective Progress Note for:: 11/24/17 Subjective:: The patient is a 67-year-old female with a past medical history of COPD, 50-pack -year history, hypertension, hyperlipidemia, depression and anxiety who was admitted on 11/21/17 for a severe COPD exacerbation. The patient is seen on morning rounds with family members present. She is found sitting upright in the recliner bed high Stern's on supplemental oxygen at 3 L/min. The patient states that she feels her symptoms are unchanged. She endorses fatigue, dyspnea at rest, nonproductive cough and chest wall pain associated with deep inspiration or coughing. She reports that she did use BiPAP briefly yesterday afternoon. She admits to not using IS or flutter valve due to chest wall pain. She does report her pain is improved with addition of oxycodone yesterday. The patient denies fever, chills, dizziness, typical cardiac chest pain, orthopnea, abdominal pain, nausea vomiting diarrhea. She has no new questions or concerns. Reason For Visit: COPD EXACERBATION Physical Exam Vital Signs: Temp Pulse Resp BP Pulse Ox 98.5 F 69 24 H 138/58 H 99 11/24/17 12:07 11/24/17 12:07 11/24/17 12:07 11/24/17 12:07 11/24/17 12:07 Pulse Oximeter Continuous Start: 11/22/17 08: 35 Freq: RTQ4 Status: Active Document 11/24/17 11:32 [facility] [place]Rec: 11/24/17 11:58 [email or web address]) Pulse Oximetry Assessment Oxygen Saturation (92-100) 94 Oxygen Flow Rate (L/min) 3 Oxygen Delivery Method Nasal Cannula Fraction of Inspired Oxygen (FIO2) 32 Equipment Usage Equipment in Use Continuous SpO2 Machine # N Intake & Output 11/23/17 11/24/17 11/25/17 06:59 06:59 06:59 Intake Total 1598 2804 Balance 1598 2804 Weight 74.9 kg 75.2 kg General appearance: PRESENT: no acute distress, well-developed, well-nourished, other - Overweight Head exam: PRESENT: atraumatic, normocephalic Eye exam: PRESENT: conjunctiva pink, EOMI, PERRLA. ABSENT: scleral icterus Ear exam: PRESENT: normal external ear exam Mouth exam: PRESENT: moist, tongue midline Neck exam: ABSENT: carotid bruit, JVD, lymphadenopathy, thyromegaly Respiratory exam: PRESENT: decreased breath sounds - bibasilar, prolonged expiratory phas, rhonchi, symmetrical, tachypnea, wheezes, other - supplemental oxygen via NC Cardiovascular exam: PRESENT: RRR. ABSENT: diastolic murmur, rubs, systolic murmur Pulses: PRESENT: normal dorsalis pedis pul Vascular exam: PRESENT: normal capillary refill GI/Abdominal exam: PRESENT: normal bowel sounds, soft. ABSENT: distended, guarding, mass, organolmegaly, rebound, tenderness Rectal exam: PRESENT: deferred Extremities exam: PRESENT: full ROM. ABSENT: calf tenderness, clubbing, pedal edema Neurological exam: PRESENT: alert, awake, oriented to person, oriented to place , oriented to time, oriented to situation, CN II-XII grossly intact. ABSENT: motor sensory deficit Psychiatric exam: PRESENT: appropriate affect, normal mood. ABSENT: homicidal ideation, suicidal ideation Skin exam: PRESENT: dry, intact, warm. ABSENT: cyanosis, rash Results Laboratory Results: 11/24/17 03:43 11/24/17 03:43 11/24/17 11/24/17 03:43 03:43 WBC 13.0 H RBC 3.79 Hgb 11.7 L Hct 34.7 L MCV 92 MCH 30.9 MCHC 33.8 RDW 14.2 H Plt Count 275 Sodium 145.0 Potassium 4.0 Chloride 105 Carbon Dioxide 27 Anion Gap 13 BUN 9 Creatinine 0.44 L Est GFR ( Amer) > 60 Est GFR (Non-Af Amer) > 60 Glucose 135 H Calcium 9.8 Total Bilirubin 0.3 AST 28 ALT 42 Alkaline Phosphatase 133 H Total Protein 7.3 Albumin 3.8 11/22/17 11/22/17 11/22/17 06:49 12:35 18:05 Troponin I < 0.012 < 0.012 < 0.012 Impressions: Chest X-Ray 11/22/17 00:00 IMPRESSION: NO ACUTE RADIOGRAPHIC FINDING IN THE CHEST. Modified Barium Swallow 11/23/17 00:00 IMPRESSION: NO EVIDENCE OF PENETRATION OR ASPIRATION.PLEASE SEE SPEECH PATHOLOGIST REPORT FOR OTHER FINDINGS AND RECOMMENDATIONS. Assessment & Plan - Diagnosis (1) Acute and chronic respiratory failure Qualifiers: Respiratory failure complication: hypoxia and hypercapnia Qualified Code(s) : J96.21 - Acute and chronic respiratory failure with hypoxia; J96.22 - Acute and chronic respiratory failure with hypercapnia; J96.22 - Acute and chronic respiratory failure with hypercapnia; J96.22 - Acute and chronic respiratory failure with hypercapnia Is this a current diagnosis for this admission?: Yes Plan: Secondary to COPD exacerbation and upper respiratory infection. Chest x-ray demonstrated mild pulmonary vascular congestion. Initial ABG showed hypercapnic respiratory acidosis with metabolic compensation. Modified barium swallow study is negative for aspiration. PFT pending. Blood cultures have no growth to date. Sputum culture demonstrated normal yun. The patient is admitted to the medical floor on continuous cardiac telemetry. She is provided supplemental oxygen to maintain oxygen saturations greater than 88% BiPAP as needed. She is provided scheduled and as needed nebulizer treatments. Continue IV Solu-Medrol. She is empirically placed on IV Levaquin given the severity of her symptoms; day #3 Incentive spirometry and flutter valve to bedside. We will attempt to repeat inpatient PFT as her acute symptoms improved. Continue Mucinex, Tessalon Perles, and Singulair. Pulmonology has been consulted; appreciate Dr. Childress evaluation recommendations. (2) COPD with acute exacerbation Is this a current diagnosis for this admission?: Yes Plan: The patient endorses a 50 year pack history but denies known diagnosis of COPD. Plan as above. (3) Cough Is this a current diagnosis for this admission?: Yes Plan: Secondary to COPD exacerbation/bronchitis and associated with lateral/posterior chest wall pain. The patient does have purulent sputum production, however, sputum cultures were positive for normal respiratory yun only. Continue Mucinex. Continue Tessalon Perles Tylenol, lidocaine patches, and as needed oxycodone as needed for pain (4) HTN (hypertension) Qualifiers: Hypertension type: essential hypertension Qualified Code(s): I10 - Essential (primary) hypertension Is this a current diagnosis for this admission?: Yes Plan: The patient endorses a history of hypertension but is not on home antihypertensive medications. She is normotensive at present. As needed IV hydralazine for blood pressure control. (5) HLD (hyperlipidemia) Qualifiers: Hyperlipidemia type: unspecified Qualified Code(s): E78.5 - Hyperlipidemia , unspecified Is this a current diagnosis for this admission?: Yes Plan: Continue home dose statin. (6) Depression Qualifiers: Depression Type: reactive depression Qualified Code(s): F32.9 - Major depressive disorder, single episode, unspecified Is this a current diagnosis for this admission?: Yes Plan: Continue home dose BuSpar and Prozac. She denies suicidal and homicidal ideation. (7) DNR (do not resuscitate) Is this a current diagnosis for this admission?: Yes - Time Time Spent with patient: 15-24 minutes Medications reviewed and adjusted accordingly: Yes
[2017-11-24] MEDS: LEVOFLOXACIN 750 MG TABLET PO SCH (14:23)
[2017-11-24 15:21] LABS: A TYPE INFLUENZA AG NEGATIVE (NEGATIVE); B INFLUENZA AG NEGATIVE (NEGATIVE)
[2017-11-24] MEDS: MONTELUKAST SODIUM 10 MG TABLET PO SCH (21:59)
[2017-11-24] MEDS: ATORVASTATIN CALCIUM 20 MG TABLET PO SCH (21:59)
[2017-11-25] MEDS: IPRATROPIUM/ALBUTEROL 0.5-2.5 MG/3 ML AMPUL NEB SCH ×5 (03:53→19:33)
[2017-11-25] MEDS: BUSPIRONE HCL 10 MG TABLET PO SCH ×3 (06:02→22:18)
[2017-11-25] MEDS: METHYLPREDNISOLONE INJ 125 MG/2 ML SDV IV SCH ×3 (06:03→22:19)
[2017-11-25 06:07] LABS: HEMATOCRIT 34.3 % (36.0-47.0); HEMOGLOBIN 11.5 g/dL (12.0-15.5); MEAN CORPUSCULAR HEMOGLOBIN 30.7 pg (27.0-33.4); MEAN CORPUSCULAR HGB CONC 33.4 g/dL (32.0-36.0); MEAN CORPUSCULAR VOLUME 92 fl (80-97); PLATELET COUNT 292 10^3/uL (150-450); RED BLOOD COUNT 3.73 10^6/uL (3.72-5.28); RED CELL DISTRIBUTION WIDTH 14.1 % (11.5-14.0); WHITE BLOOD COUNT 11.9 10^3/uL (4.0-10.5)
[2017-11-25 06:30] LABS: ALANINE AMINOTRANSFERASE 41 U/L (9-52); ALBUMIN 3.6 g/dL (3.5-5.0); ALKALINE PHOSPHATASE 126 U/L (38-126); ANION GAP 12 (5-19); ASPARTATE AMINO TRANSFERASE 23 U/L (14-36); BILIRUBIN,DIRECT 0.3 mg/dL (0.0-0.4); BILIRUBIN,TOTAL 0.3 mg/dL (0.2-1.3); BLOOD UREA NITROGEN 13 mg/dL (7-20); CALCIUM 9.8 mg/dL (8.4-10.2); CARBON DIOXIDE 28 mmol/L (22-30); CHLORIDE 105 mmol/L (98-107); GLUCOSE 107 mg/dL (75-110); POTASSIUM 3.8 mmol/L (3.6-5.0); SODIUM 144.6 mmol/L (137-145); TOTAL PROTEIN 7.2 g/dL (6.3-8.2)
[2017-11-25] MEDS: BUDESONIDE NEB 0.5 MG/2 ML AMPUL NEB SCH ×2 (07:57→19:33)
[2017-11-25] MEDS: SUCRALFATE 1 GM TABLET PO SCH ×4 (08:02→22:17)
[2017-11-25] MEDS: OXYCODONE HCL IR 5 MG TABLET PO PRN ×3 (08:02→18:33)
[2017-11-25] MEDS: ENOXAPARIN SODIUM INJ 30 MG/0.3 ML DISP.SYRIN SUBCUT SCH (09:45)
[2017-11-25] MEDS: NICOTINE 21 MG/24 HR PATCH.TD24 TD SCH (09:45)
[2017-11-25] MEDS: FLUOXETINE HCL 20 MG CAPSULE PO SCH (09:46)
[2017-11-25] MEDS: LIDOCAINE 5% (700 MG) TRANSDERMAL ADH..PATCH TP SCH (09:46)
[2017-11-25] MEDS: DONEPEZIL HCL 5 MG TABLET PO SCH (09:46)
[2017-11-25] MEDS: GUAIFENESIN 600 MG TABLET.SA PO SCH ×2 (09:47→22:18)
[2017-11-25] MEDS: BENZONATATE 100 MG CAPSULE PO SCH ×3 (09:47→17:08)
[2017-11-25] MEDS: FLUTICASONE NASAL SPRAY 50 MCG/SPRY 120 SPRAY/16 GM NAREB SCH ×2 (09:47→14:29)
--- NOTE | 2017-11-25 11:15 | RADIOLOGY REPORT (SQ) ---
EXAM DESCRIPTION: CT SINUSES FOR ENT COMPLETED DATE/TIME: 11/25/2017 10:58 am REASON FOR STUDY: nose bleeds COMPARISON: CT brain 09/27/2015 TECHNIQUE: Noncontrast scanning through the paranasal sinuses using bone algorithm. Reconstructed MPR images reviewed. All images stored on PACS. Images acquired for image guided surgery. All CT scanners at this facility use dose modulation, iterative reconstruction, and/or weight based d osing when appropriate to reduce radiation dose to as low as reasonably achievable (ALARA). [facility]: Dose Right [facility]: CareDose [facility]: Dose Right [facility]: Teradose 4D [facility]: Pairy RADIATION DOSE: 46.6 mGy. FINDINGS: NASAL PASSAGES: Clear. No polyps or masses. OSTEOMEATAL UNITS AND NASOFRONTAL DUCTS: Mucous membrane thickening narrows the right maxillary sinus outlet on coronal images 85-91. On the left side, the maxillary sinus outlet appears occluded by mu cous membrane thickening on coronal images 79 through 93. No agger nasi or Maria Eugenia cells. MAXILLARY SINUSES: Well-pneumatized and clear. ETHMOID SINUSES: Well pneumatized. There is mucous membrane thickening and fluid throughout the ethm oid air cells SPHENOID SINUSES: Fluid in the bilateral sphenoid sinuses. No sphenoethmoid air cells or pneumatized pterygoid recess. No pneumatized dorsal sella. FRONTAL SINUSES: Fluid in the dependent portion of the frontal sinuses. MASTOID AIR CELLS: Clear. ORBITS: Post cataract surgery. Globes optic nerves, orbital contents otherwise unremarkable NASAL SEPTUM: Midline. No nasal septal spurs. TEMPOROMANDIBULAR JOINTS: Normal. TURBINATES: No pneumatized turbinates. MUCOPERIOSTEAL THICKENING: No. MUCOCELE: No. OTHER: No other significant findings. IMPRESSION: Diffuse inflammatory changes throughout the paranasal sinuses as above. No nasal masses. No aggressive bony destruction nasal cavity worrisome for tumor or aggressive infec tion. TECHNICAL DOCUMENTATION: JOB ID: [id number] Quality ID # [id number]: Final reports with documentation of one or more dose reduction techniques (e.g., Au tomated exposure control, adjustment of the mA and/or kV according to patient size, use of iterative reconstruction technique) 2010 [employer]- All Rights Reserved Reading location - IP/workstation name: [facility], [facility]
--- NOTE | 2017-11-25 13:37 | PDOC PROGRESS REPORT ---
Subjective Progress Note for:: 11/25/17 Subjective:: I am better but I have had bloody nose for a year Reason For Visit: COPD EXACERBATION Physical Exam Vital Signs: Temp Pulse Resp BP Pulse Ox 98.9 F 82 22 H 143/65 H 95 11/25/17 08:16 11/25/17 12:23 11/25/17 12:23 11/25/17 08:16 11/25/17 12:23 Pulse Oximeter Continuous Start: 11/22/17 08: 35 Freq: RTQ4 Status: Active Document 11/25/17 12:23 [facility] (Rec: 11/25/17 12:34 [email or web address] [email or web address]) Pulse Oximetry Assessment Oxygen Saturation (92-100) 91 Oxygen Flow Rate (L/min) 3 Oxygen Delivery Method Nasal Cannula Equipment Usage Equipment in Use Continuous SpO2 Machine # 11 Intake & Output 11/24/17 11/25/17 11/26/17 06:59 06:59 06:59 Intake Total 2804 3059 Output Total 500 Balance 2804 2559 Weight 75.2 kg 75.2 kg General appearance: PRESENT: no acute distress, cooperative, disheveled Head exam: PRESENT: atraumatic, normocephalic Eye exam: PRESENT: conjunctiva pale, EOMI. ABSENT: nystagmus, periorbital swelling, scleral icterus Mouth exam: PRESENT: moist, neck supple, tongue midline Neck exam: ABSENT: carotid bruit, JVD, lymphadenopathy, thyromegaly, tracheal deviation, tracheostomy Respiratory exam: PRESENT: decreased breath sounds, prolonged expiratory phas, rales, rhonchi, unlabored, wheezes. ABSENT: stridor Cardiovascular exam: PRESENT: RRR, +S1, +S2 Pulses: PRESENT: normal radial pulses GI/Abdominal exam: PRESENT: normal bowel sounds, soft Extremities exam: ABSENT: calf tenderness, clubbing, joint swelling, pedal edema Musculoskeletal exam: ABSENT: deformity, dislocation Neurological exam: PRESENT: alert, awake Psychiatric exam: PRESENT: normal mood Skin exam: PRESENT: dry, warm Results Laboratory Results: 11/25/17 05:21 11/25/17 05:21 11/25/17 11/25/17 05:21 05:21 WBC 11.9 H RBC 3.73 Hgb 11.5 L Hct 34.3 L MCV 92 MCH 30.7 MCHC 33.4 RDW 14.1 H Plt Count 292 Sodium 144.6 Potassium 3.8 Chloride 105 Carbon Dioxide 28 Anion Gap 12 BUN 13 Creatinine 0.43 L Est GFR ( Amer) > 60 Est GFR (Non-Af Amer) > 60 Glucose 107 Calcium 9.8 Total Bilirubin 0.3 AST 23 ALT 41 Alkaline Phosphatase 126 Total Protein 7.2 Albumin 3.6 11/22/17 11/22/17 11/22/17 06:49 12:35 18:05 Troponin I < 0.012 < 0.012 < 0.012 Impressions: Chest X-Ray 11/22/17 00:00 IMPRESSION: NO ACUTE RADIOGRAPHIC FINDING IN THE CHEST. Modified Barium Swallow 11/23/17 00:00 IMPRESSION: NO EVIDENCE OF PENETRATION OR ASPIRATION.PLEASE SEE SPEECH PATHOLOGIST REPORT FOR OTHER FINDINGS AND RECOMMENDATIONS. Sinuses CT 11/25/17 00:00 IMPRESSION: Diffuse inflammatory changes throughout the paranasal sinuses as above. No nasal masses. No aggressive bony destruction nasal cavity worrisome for tumor or aggressive infection. Assessment & Plan - Diagnosis (1) COPD with acute exacerbation Is this a current diagnosis for this admission?: Yes Plan: Continue current bronchodilator therapy (2) HTN (hypertension) Qualifiers: Hypertension type: essential hypertension Qualified Code(s): I10 - Essential (primary) hypertension Is this a current diagnosis for this admission?: Yes Plan: Stop smoking (3) Tobacco abuse Is this a current diagnosis for this admission?: Yes (4) Tobacco abuse counseling Is this a current diagnosis for this admission?: Yes Plan: Discussed the risk and dangers associated with continued tobacco useDiscussed the risk and dangers associated with continued tobacco use (5) Epistaxis, recurrent Is this a current diagnosis for this admission?: Yes Plan: CT of sinus
[2017-11-25] MEDS: LEVOFLOXACIN 750 MG TABLET PO SCH (14:28)
--- NOTE | 2017-11-25 15:07 | PDOC PROGRESS REPORT ---
Subjective Progress Note for:: 11/25/17 Subjective:: The patient is a 67-year-old female with a past medical history of COPD, 50-pack -year history, hypertension, hyperlipidemia, depression and anxiety who was admitted on 11/21/17 for a severe COPD exacerbation. The patient is seen on morning rounds with family members present. She is found sitting upright in the recliner bed on supplemental oxygen at 3 L/min. The patient states that she feels slightly better today. She reports continued fatigue, dyspnea at rest, and nonproductive cough. She reports that her cough is slightly decreased and that her chest wall pain has improved significantly. She reports that she did not use BiPAP yesterday although she notes that it did help her the day previously. Her primary concern today is a spontaneous nosebleed that occurred early this morning and right maxillary tenderness. The patient denies fever, chills, dizziness, typical cardiac chest pain, orthopnea, abdominal pain, nausea vomiting diarrhea. She has no other questions or concerns. Reason For Visit: COPD EXACERBATION Physical Exam Vital Signs: Temp Pulse Resp BP Pulse Ox 98.9 F 82 22 H 143/65 H 95 11/25/17 08:16 11/25/17 12:23 11/25/17 12:23 11/25/17 08:16 11/25/17 12:23 Pulse Oximeter Continuous Start: 11/22/17 08: 35 Freq: RTQ4 Status: Active Document 11/25/17 12:23 [facility] (Rec: 11/25/17 12:34 [facility] [email or web address]) Pulse Oximetry Assessment Oxygen Saturation (92-100) 91 Oxygen Flow Rate (L/min) 3 Oxygen Delivery Method Nasal Cannula Equipment Usage Equipment in Use Continuous SpO2 Machine # 11 Intake & Output 11/24/17 11/25/17 11/26/17 06:59 06:59 06:59 Intake Total 2804 3059 Output Total 500 Balance 2804 2559 Weight 75.2 kg 75.2 kg General appearance: PRESENT: no acute distress, well-developed, well-nourished, other - Overweight Head exam: PRESENT: atraumatic, normocephalic Eye exam: PRESENT: conjunctiva pink, EOMI, PERRLA. ABSENT: scleral icterus Ear exam: PRESENT: normal external ear exam Mouth exam: PRESENT: moist, tongue midline Neck exam: ABSENT: carotid bruit, JVD, lymphadenopathy, thyromegaly Respiratory exam: PRESENT: decreased breath sounds - Bibasilar, rhonchi, symmetrical, tachypnea, wheezes, other - Supplemental oxygen via nasal cannula. ABSENT: rales Cardiovascular exam: PRESENT: RRR, +S1, +S2. ABSENT: diastolic murmur, rubs, systolic murmur Pulses: PRESENT: normal dorsalis pedis pul Vascular exam: PRESENT: normal capillary refill GI/Abdominal exam: PRESENT: normal bowel sounds, soft. ABSENT: distended, guarding, mass, organolmegaly, rebound, tenderness Rectal exam: PRESENT: deferred Extremities exam: PRESENT: full ROM. ABSENT: calf tenderness, clubbing, pedal edema Neurological exam: PRESENT: alert, awake, oriented to person, oriented to place , oriented to time, oriented to situation, CN II-XII grossly intact. ABSENT: motor sensory deficit Psychiatric exam: PRESENT: appropriate affect, normal mood. ABSENT: homicidal ideation, suicidal ideation Skin exam: PRESENT: dry, intact, warm. ABSENT: cyanosis, rash Results Laboratory Results: 11/25/17 05:21 11/25/17 05:21 11/25/17 11/25/17 05:21 05:21 WBC 11.9 H RBC 3.73 Hgb 11.5 L Hct 34.3 L MCV 92 MCH 30.7 MCHC 33.4 RDW 14.1 H Plt Count 292 Sodium 144.6 Potassium 3.8 Chloride 105 Carbon Dioxide 28 Anion Gap 12 BUN 13 Creatinine 0.43 L Est GFR ( Amer) > 60 Est GFR (Non-Af Amer) > 60 Glucose 107 Calcium 9.8 Total Bilirubin 0.3 AST 23 ALT 41 Alkaline Phosphatase 126 Total Protein 7.2 Albumin 3.6 11/22/17 11/22/17 11/22/17 06:49 12:35 18:05 Troponin I < 0.012 < 0.012 < 0.012 Impressions: Chest X-Ray 11/22/17 00:00 IMPRESSION: NO ACUTE RADIOGRAPHIC FINDING IN THE CHEST. Modified Barium Swallow 11/23/17 00:00 IMPRESSION: NO EVIDENCE OF PENETRATION OR ASPIRATION.PLEASE SEE SPEECH PATHOLOGIST REPORT FOR OTHER FINDINGS AND RECOMMENDATIONS. Sinuses CT 11/25/17 00:00 IMPRESSION: Diffuse inflammatory changes throughout the paranasal sinuses as above. No nasal masses. No aggressive bony destruction nasal cavity worrisome for tumor or aggressive infection. Assessment & Plan - Diagnosis (1) Acute and chronic respiratory failure Qualifiers: Respiratory failure complication: hypoxia and hypercapnia Qualified Code(s) : J96.21 - Acute and chronic respiratory failure with hypoxia; J96.22 - Acute and chronic respiratory failure with hypercapnia; J96.22 - Acute and chronic respiratory failure with hypercapnia; J96.22 - Acute and chronic respiratory failure with hypercapnia Is this a current diagnosis for this admission?: Yes Plan: Slight improvement today; continues to have adventitious lung sounds of rhonchi and wheezing, however, increased air movement. Patient is now speaking in full sentences but remains tachypneic and on supplemental oxygen. Secondary to COPD exacerbation and upper respiratory infection. Chest x-ray demonstrated mild pulmonary vascular congestion. Initial ABG showed hypercapnic respiratory acidosis with metabolic compensation. Modified barium swallow study is negative for aspiration. PFT pending. Blood cultures have no growth to date. Sputum culture demonstrated normal yun. The patient is admitted to the medical floor on continuous cardiac telemetry. She is provided supplemental oxygen to maintain oxygen saturations greater than 88% BiPAP as needed; encouraged to use. She is provided scheduled and as needed nebulizer treatments. Continue IV Solu-Medrol. She is empirically placed on IV Levaquin given the severity of her symptoms; day #4 Incentive spirometry and flutter valve to bedside. We will attempt to repeat inpatient PFT as her acute symptoms improved. Continue Mucinex, Tessalon Perles, and Singulair. Pulmonology has been consulted; appreciate Dr. Childress evaluation recommendations. I discussed the patient's progress with Dr. Childress, he has no new recommendations and believes that she is beginning to show slight improvement. (2) COPD with acute exacerbation Is this a current diagnosis for this admission?: Yes Plan: The patient endorses a 50 year pack history but denies known diagnosis of COPD. Plan as above. (3) Cough Is this a current diagnosis for this admission?: Yes Plan: Secondary to COPD exacerbation/bronchitis and associated with lateral/posterior chest wall pain. Decreased sputum production. Sputum cultures show normal yun. Continue Mucinex. Continue Tessalon Perles Tylenol, lidocaine patches, and as needed oxycodone as needed for pain (4) HTN (hypertension) Qualifiers: Hypertension type: essential hypertension Qualified Code(s): I10 - Essential (primary) hypertension Is this a current diagnosis for this admission?: Yes Plan: The patient endorses a history of hypertension but is not on home antihypertensive medications. Some slightly elevated blood pressures today, 143/65; will continue to monitor. As needed IV hydralazine for blood pressure control. (5) HLD (hyperlipidemia) Qualifiers: Hyperlipidemia type: unspecified Qualified Code(s): E78.5 - Hyperlipidemia , unspecified Is this a current diagnosis for this admission?: Yes Plan: Continue home dose statin. (6) Depression Qualifiers: Depression Type: reactive depression Qualified Code(s): F32.9 - Major depressive disorder, single episode, unspecified Is this a current diagnosis for this admission?: Yes Plan: Continue home dose BuSpar and Prozac. She denies suicidal and homicidal ideation. (7) Epistaxis, recurrent Is this a current diagnosis for this admission?: Yes Plan: Spontaneous epistaxis early this morning. Patient reports frequent nosebleeds. She also complains of right maxillary facial pressure. She denies sore throat , postnasal drip, ear pain. She denies history of sinusitis. CT of the sinuses revealed diffuse inflammatory changes throughout the para nasal sinuses with mucous membrane thickening narrowing the right maxillary sinus outlet and occlusion of the maxillary sinus outlet on the left side. Continue Flonase. Currently receiving steroids for COPD exacerbation. Recommend outpatient ENT follow-up. (8) DNR (do not resuscitate) Is this a current diagnosis for this admission?: Yes - Time Time Spent with patient: 25-34 minutes Medications reviewed and adjusted accordingly: Yes Anticipated discharge: Home
[2017-11-25] MEDS: KETOROLAC TROMETHAMINE INJ/PF 30 MG/1 ML SDV IV PRN (16:04)
[2017-11-25] MEDS ORDERED: SODIUM CHLORIDE NASAL SPRAY 44 ML NASL PRN (16:53)
[2017-11-25] MEDS: ATORVASTATIN CALCIUM 20 MG TABLET PO SCH (22:17)
[2017-11-25] MEDS: MONTELUKAST SODIUM 10 MG TABLET PO SCH (22:18)
[2017-11-25] MEDS: PHARMACY COMMUNICATION ORDER MC SCH (22:26)
[2017-11-26] MEDS: IPRATROPIUM/ALBUTEROL 0.5-2.5 MG/3 ML AMPUL NEB SCH ×6 (00:44→20:36)
[2017-11-26 04:53] LABS: HEMATOCRIT 33.4 % (36.0-47.0); HEMOGLOBIN 11.7 g/dL (12.0-15.5); MEAN CORPUSCULAR HEMOGLOBIN 31.5 pg (27.0-33.4); MEAN CORPUSCULAR HGB CONC 34.9 g/dL (32.0-36.0); MEAN CORPUSCULAR VOLUME 90 fl (80-97); PLATELET COUNT 327 10^3/uL (150-450); RED CELL DISTRIBUTION WIDTH 14.2 % (11.5-14.0); WHITE BLOOD COUNT 11.5 10^3/uL (4.0-10.5)
[2017-11-26] MEDS: METHYLPREDNISOLONE INJ 125 MG/2 ML SDV IV SCH (07:11)
[2017-11-26] MEDS: BUSPIRONE HCL 10 MG TABLET PO SCH ×3 (07:11→21:35)
[2017-11-26] MEDS: BUDESONIDE NEB 0.5 MG/2 ML AMPUL NEB SCH ×2 (07:50→20:36)
[2017-11-26] MEDS: SUCRALFATE 1 GM TABLET PO SCH ×4 (07:55→21:35)
[2017-11-26] MEDS: FLUOXETINE HCL 20 MG CAPSULE PO SCH (09:15)
[2017-11-26] MEDS: KETOROLAC TROMETHAMINE INJ/PF 30 MG/1 ML SDV IV PRN ×2 (09:15→14:42)
[2017-11-26] MEDS: ENOXAPARIN SODIUM INJ 40 MG/0.4 ML DISP.SYRIN SUBCUT SCH (09:15)
[2017-11-26] MEDS: GUAIFENESIN 600 MG TABLET.SA PO SCH ×2 (09:16→21:35)
[2017-11-26] MEDS: OXYCODONE HCL IR 5 MG TABLET PO PRN ×3 (09:16→21:35)
[2017-11-26] MEDS: DONEPEZIL HCL 5 MG TABLET PO SCH (09:16)
[2017-11-26] MEDS: BENZONATATE 100 MG CAPSULE PO SCH ×3 (09:16→17:52)
[2017-11-26] MEDS: LIDOCAINE 5% (700 MG) TRANSDERMAL ADH..PATCH TP SCH (09:17)
[2017-11-26] MEDS: NICOTINE 21 MG/24 HR PATCH.TD24 TD SCH (09:18)
--- NOTE | 2017-11-26 10:01 | PDOC PROGRESS REPORT ---
Subjective Progress Note for:: 11/26/17 Subjective:: Continues to be dips negative although somewhat better Reason For Visit: COPD EXACERBATION Physical Exam Vital Signs: Temp Pulse Resp BP Pulse Ox 98.6 F 80 18 130/51 H 92 11/26/17 08:00 11/26/17 08:00 11/26/17 08:00 11/26/17 08:00 11/26/17 08:00 Pulse Oximeter Continuous Start: 11/22/17 08: 35 Freq: RTQ4 Status: Active Document 11/26/17 07:50 [facility] (Rec: 11/26/17 08:09 [facility] [email or web address]) Pulse Oximetry Assessment Oxygen Saturation (92-100) 91 Oxygen Flow Rate (L/min) 3 Oxygen Delivery Method Nasal Cannula Equipment Usage Equipment in Use Continuous SpO2 Machine # 11 Intake & Output 11/25/17 11/26/17 11/27/17 06:59 06:59 06:59 Intake Total 3059 1314 Output Total 500 102 Balance 2559 1212 Weight 75.2 kg 72.3 kg General appearance: PRESENT: no acute distress, cooperative, disheveled Head exam: PRESENT: atraumatic, normocephalic Eye exam: PRESENT: conjunctiva pale, EOMI, PERRLA. ABSENT: nystagmus, periorbital swelling, scleral icterus Mouth exam: PRESENT: moist, neck supple, tongue midline Neck exam: ABSENT: carotid bruit, JVD, lymphadenopathy, thyromegaly, tracheal deviation, tracheostomy Respiratory exam: PRESENT: decreased breath sounds, prolonged expiratory phas, rales, rhonchi, unlabored, wheezes. ABSENT: retraction, stridor, tachypnea Cardiovascular exam: PRESENT: RRR, +S1, +S2 Pulses: PRESENT: normal radial pulses GI/Abdominal exam: PRESENT: normal bowel sounds, soft Extremities exam: PRESENT: full ROM. ABSENT: calf tenderness, clubbing Musculoskeletal exam: PRESENT: ambulatory, full ROM. ABSENT: deformity, dislocation Neurological exam: PRESENT: alert, awake Psychiatric exam: PRESENT: normal mood Skin exam: PRESENT: dry, warm Results Laboratory Results: 11/26/17 03:56 11/25/17 05:21 11/26/17 03:56 WBC 11.5 H RBC 3.70 L Hgb 11.7 L Hct 33.4 L MCV 90 MCH 31.5 MCHC 34.9 RDW 14.2 H Plt Count 327 11/22/17 11/22/17 11/22/17 06:49 12:35 18:05 Troponin I < 0.012 < 0.012 < 0.012 Impressions: Chest X-Ray 11/22/17 00:00 IMPRESSION: NO ACUTE RADIOGRAPHIC FINDING IN THE CHEST. Modified Barium Swallow 11/23/17 00:00 IMPRESSION: NO EVIDENCE OF PENETRATION OR ASPIRATION.PLEASE SEE SPEECH PATHOLOGIST REPORT FOR OTHER FINDINGS AND RECOMMENDATIONS. Sinuses CT 11/25/17 00:00 IMPRESSION: Diffuse inflammatory changes throughout the paranasal sinuses as above. No nasal masses. No aggressive bony destruction nasal cavity worrisome for tumor or aggressive infection. Assessment & Plan - Diagnosis (1) COPD with acute exacerbation Is this a current diagnosis for this admission?: Yes Plan: Continue current bronchodilator therapy (2) HTN (hypertension) Qualifiers: Hypertension type: essential hypertension Qualified Code(s): I10 - Essential (primary) hypertension Is this a current diagnosis for this admission?: Yes Plan: Stop smoking (3) Tobacco abuse Is this a current diagnosis for this admission?: Yes (4) Tobacco abuse counseling Is this a current diagnosis for this admission?: Yes Plan: Discussed the risk and dangers associated with continued tobacco useDiscussed the risk and dangers associated with continued tobacco use (5) Epistaxis, recurrent Is this a current diagnosis for this admission?: Yes Plan: CT reports diffuse inflammation
[2017-11-26] MEDS ORDERED: METHYLPREDNISOLONE INJ 125 MG/2 ML SDV IV SCH (14:15)
--- NOTE | 2017-11-26 14:16 | PDOC PROGRESS REPORT ---
Subjective Progress Note for:: 11/26/17 Subjective:: The patient is a 67-year-old female with a past medical history of COPD, 50-pack -year history, hypertension, hyperlipidemia, depression and anxiety who was admitted on 11/21/17 for a severe COPD exacerbation. The patient is seen on morning rounds. She is found sitting upright in the recliner bed on supplemental oxygen at 3 L/min. The patient states that she does not feel any significant improvement today. She continues to have dyspnea while at rest that is worsened by minimal activity. Her cough is slightly improved, although is still productive of sputum and associated with chest wall pain. She does continue to complain of right maxillary facial pain but has not had further episodes of epistaxis. The patient denies fever, chills, dizziness, typical cardiac chest pain, orthopnea, abdominal pain, nausea vomiting diarrhea. She has no other questions or concerns. Reason For Visit: COPD EXACERBATION Physical Exam Vital Signs: Temp Pulse Resp BP Pulse Ox 97.8 F 74 16 122/66 93 11/26/17 12:00 11/26/17 12:54 11/26/17 12:54 11/26/17 12:00 11/26/17 12:54 Pulse Oximeter Continuous Start: 11/22/17 08: 35 Freq: RTQ4 Status: Active Document 11/26/17 12:54 [facility] (Rec: 11/26/17 13:08 [facility] [email or web address]) Pulse Oximetry Assessment Oxygen Saturation (92-100) 93 Oxygen Flow Rate (L/min) 3 Oxygen Delivery Method Nasal Cannula Equipment Usage Equipment in Use Continuous SpO2 Machine # 11 Intake & Output 11/25/17 11/26/17 11/27/17 06:59 06:59 06:59 Intake Total 3059 1314 Output Total 500 102 Balance 2559 1212 Weight 75.2 kg 72.3 kg General appearance: PRESENT: no acute distress, well-developed, well-nourished, other - Overweight Head exam: PRESENT: atraumatic, normocephalic Eye exam: PRESENT: conjunctiva pink, EOMI, PERRLA. ABSENT: scleral icterus Ear exam: PRESENT: normal external ear exam Mouth exam: PRESENT: moist, tongue midline Neck exam: ABSENT: carotid bruit, JVD, lymphadenopathy, thyromegaly Respiratory exam: PRESENT: rhonchi - Throughout; slight improvement from yesterday., symmetrical, tachypnea, wheezes, other - Supplemental oxygen via nasal cannula. ABSENT: rales Cardiovascular exam: PRESENT: RRR, +S1, +S2. ABSENT: diastolic murmur, rubs, systolic murmur Pulses: PRESENT: normal dorsalis pedis pul Vascular exam: PRESENT: normal capillary refill GI/Abdominal exam: PRESENT: normal bowel sounds, soft. ABSENT: distended, guarding, mass, organolmegaly, rebound, tenderness Rectal exam: PRESENT: deferred Extremities exam: PRESENT: full ROM. ABSENT: calf tenderness, clubbing, pedal edema Neurological exam: PRESENT: alert, awake, oriented to person, oriented to place , oriented to time, oriented to situation, CN II-XII grossly intact. ABSENT: motor sensory deficit Psychiatric exam: PRESENT: appropriate affect, normal mood. ABSENT: homicidal ideation, suicidal ideation Skin exam: PRESENT: dry, intact, warm. ABSENT: cyanosis, rash Results Laboratory Results: 11/26/17 03:56 11/25/17 05:21 11/26/17 03:56 WBC 11.5 H RBC 3.70 L Hgb 11.7 L Hct 33.4 L MCV 90 MCH 31.5 MCHC 34.9 RDW 14.2 H Plt Count 327 11/22/17 11/22/17 11/22/17 06:49 12:35 18:05 Troponin I < 0.012 < 0.012 < 0.012 Impressions: Chest X-Ray 11/22/17 00:00 IMPRESSION: NO ACUTE RADIOGRAPHIC FINDING IN THE CHEST. Modified Barium Swallow 11/23/17 00:00 IMPRESSION: NO EVIDENCE OF PENETRATION OR ASPIRATION.PLEASE SEE SPEECH PATHOLOGIST REPORT FOR OTHER FINDINGS AND RECOMMENDATIONS. Sinuses CT 11/25/17 00:00 IMPRESSION: Diffuse inflammatory changes throughout the paranasal sinuses as above. No nasal masses. No aggressive bony destruction nasal cavity worrisome for tumor or aggressive infection. Assessment & Plan - Diagnosis (1) Acute and chronic respiratory failure Qualifiers: Respiratory failure complication: hypoxia and hypercapnia Qualified Code(s) : J96.21 - Acute and chronic respiratory failure with hypoxia; J96.22 - Acute and chronic respiratory failure with hypercapnia; J96.22 - Acute and chronic respiratory failure with hypercapnia; J96.22 - Acute and chronic respiratory failure with hypercapnia Is this a current diagnosis for this admission?: Yes Plan: Gradual improvement; continues to have adventitious lung sounds of rhonchi and wheezing. Patient is now speaking in full sentences but remains tachypneic and on supplemental oxygen. Secondary to COPD exacerbation and upper respiratory infection. Chest x-ray demonstrated mild pulmonary vascular congestion. Initial ABG showed hypercapnic respiratory acidosis with metabolic compensation. Modified barium swallow study is negative for aspiration. PFT pending. Blood cultures have no growth to date. Sputum culture demonstrated normal yun. The patient is admitted to the medical floor on continuous cardiac telemetry. She is provided supplemental oxygen to maintain oxygen saturations greater than 88% BiPAP as needed; encouraged to use. She is provided scheduled and as needed nebulizer treatments. Continue IV Solu-Medrol; will wean slightly today. She is empirically placed on IV Levaquin given the severity of her symptoms; day #5 Incentive spirometry and flutter valve to bedside. We will attempt to repeat inpatient PFT as her acute symptoms improved. Continue Mucinex, Tessalon Perles, and Singulair. Pulmonology has been consulted; appreciate Dr. Childress's evaluation and recommendations. (2) COPD with acute exacerbation Is this a current diagnosis for this admission?: Yes Plan: The patient endorses a 50 year pack history but denies known diagnosis of COPD. Plan as above. (3) Cough Is this a current diagnosis for this admission?: Yes Plan: Secondary to COPD exacerbation/bronchitis and associated with lateral/posterior chest wall pain. Decreased sputum production. Sputum cultures show normal yun. Continue Mucinex. Continue Tessalon Perles Tylenol, lidocaine patches, and as needed oxycodone as needed for pain (4) HTN (hypertension) Qualifiers: Hypertension type: essential hypertension Qualified Code(s): I10 - Essential (primary) hypertension Is this a current diagnosis for this admission?: Yes Plan: The patient endorses a history of hypertension but is not on home antihypertensive medications. Some slightly elevated blood pressures; highest is 143/65. Will continue to monitor. As needed IV hydralazine for blood pressure control. (5) HLD (hyperlipidemia) Qualifiers: Hyperlipidemia type: unspecified Qualified Code(s): E78.5 - Hyperlipidemia , unspecified Is this a current diagnosis for this admission?: Yes Plan: Continue home dose statin. (6) Depression Qualifiers: Depression Type: reactive depression Qualified Code(s): F32.9 - Major depressive disorder, single episode, unspecified Is this a current diagnosis for this admission?: Yes Plan: Continue home dose BuSpar and Prozac. She denies suicidal and homicidal ideation. (7) Epistaxis, recurrent Is this a current diagnosis for this admission?: Yes Plan: Spontaneous epistaxis early yesterday morning. Patient reports frequent nosebleeds. She also complains of right maxillary facial pressure. She denies sore throat, postnasal drip, ear pain. She denies history of sinusitis. CT of the sinuses revealed diffuse inflammatory changes throughout the para nasal sinuses with mucous membrane thickening narrowing the right maxillary sinus outlet and occlusion of the maxillary sinus outlet on the left side. Continue Flonase. Currently receiving steroids for COPD exacerbation. Recommend outpatient ENT follow-up. (8) DNR (do not resuscitate) Is this a current diagnosis for this admission?: Yes - Time Time Spent with patient: 25-34 minutes Medications reviewed and adjusted accordingly: Yes
[2017-11-26] MEDS: FLUTICASONE NASAL SPRAY 50 MCG/SPRY 120 SPRAY/16 GM NAREB SCH (14:43)
[2017-11-26] MEDS: LEVOFLOXACIN 750 MG TABLET PO SCH (14:43)
[2017-11-26] MEDS ORDERED: METHYLPREDNISOLONE INJ 40 MG/1 ML SDV IV ONE (15:00)
[2017-11-26] MEDS: MONTELUKAST SODIUM 10 MG TABLET PO SCH (21:35)
[2017-11-26] MEDS: METHYLPREDNISOLONE INJ 40 MG/1 ML SDV IV SCH (21:35)
[2017-11-26] MEDS: ATORVASTATIN CALCIUM 20 MG TABLET PO SCH (21:35)
[2017-11-26] MEDS: PHARMACY COMMUNICATION ORDER MC SCH (21:37)
[2017-11-27] MEDS: IPRATROPIUM/ALBUTEROL 0.5-2.5 MG/3 ML AMPUL NEB SCH ×6 (00:02→19:42)
[2017-11-27 05:43] LABS: ANION GAP 14 (5-19); BLOOD UREA NITROGEN 19 mg/dL (7-20); CALCIUM 9.5 mg/dL (8.4-10.2); CARBON DIOXIDE 28 mmol/L (22-30); CHLORIDE 103 mmol/L (98-107); GLUCOSE 110 mg/dL (75-110); POTASSIUM 4.5 mmol/L (3.6-5.0); SODIUM 144.7 mmol/L (137-145)
[2017-11-27] MEDS: BUSPIRONE HCL 10 MG TABLET PO SCH ×3 (06:00→22:19)
[2017-11-27] MEDS: METHYLPREDNISOLONE INJ 40 MG/1 ML SDV IV SCH ×3 (06:01→22:19)
[2017-11-27] MEDS: OXYCODONE HCL IR 5 MG TABLET PO PRN ×4 (06:02→20:00)
[2017-11-27 06:39] LABS: HEMATOCRIT 35.3 % (36.0-47.0); HEMOGLOBIN 11.9 g/dL (12.0-15.5); MEAN CORPUSCULAR HEMOGLOBIN 30.8 pg (27.0-33.4); MEAN CORPUSCULAR HGB CONC 33.8 g/dL (32.0-36.0); MEAN CORPUSCULAR VOLUME 91 fl (80-97); PLATELET COUNT 376 10^3/uL (150-450); RED BLOOD COUNT 3.88 10^6/uL (3.72-5.28); RED CELL DISTRIBUTION WIDTH 14.2 % (11.5-14.0); WHITE BLOOD COUNT 12.5 10^3/uL (4.0-10.5)
[2017-11-27] MEDS: BUDESONIDE NEB 0.5 MG/2 ML AMPUL NEB SCH ×2 (07:35→19:42)
[2017-11-27] MEDS: BENZONATATE 100 MG CAPSULE PO SCH ×3 (09:26→17:21)
[2017-11-27] MEDS: SUCRALFATE 1 GM TABLET PO SCH ×4 (09:26→22:19)
[2017-11-27] MEDS: DONEPEZIL HCL 5 MG TABLET PO SCH (09:26)
[2017-11-27] MEDS: GUAIFENESIN 600 MG TABLET.SA PO SCH ×2 (09:27→22:19)
[2017-11-27] MEDS: NICOTINE 21 MG/24 HR PATCH.TD24 TD SCH (09:27)
[2017-11-27] MEDS: ENOXAPARIN SODIUM INJ 40 MG/0.4 ML DISP.SYRIN SUBCUT SCH (09:27)
[2017-11-27] MEDS: FLUOXETINE HCL 20 MG CAPSULE PO SCH (09:27)
[2017-11-27] MEDS: LIDOCAINE 5% (700 MG) TRANSDERMAL ADH..PATCH TP SCH (09:38)
--- NOTE | 2017-11-27 12:09 | RADIOLOGY REPORT (SQ) ---
EXAM DESCRIPTION: CT CHEST WITHOUT COMPLETED DATE/TIME: 11/27/2017 10:54 am REASON FOR STUDY: tachypnea, hypoxia, productive cough COMPARISON: Chest x-ray dated 11/22/2017. Chest CTA dated 12/14/2013. TECHNIQUE: CT scan performed of the chest without intravenous contrast. Images reviewed with lung, soft tissue and bone windows. Reconstructed coronal and sagittal MPR images reviewed. All images st ored on PACS. All CT scanners at this facility use dose modulation, iterative reconstruction, and/or weight based d osing when appropriate to reduce radiation dose to as low as reasonably achievable (ALARA). [facility]: Dose Right [facility]: CareDose [facility]: Dose Right [facility]: Teradose 4D [facility]: [employer] RADIATION DOSE: CT Rad equipment meets quality standard of care and radiation dose reduction techniq ues were employed. CTDIvol: 10.2 mGy. DLP: 402 mGy-cm. mGy. LIMITATIONS: No technical limitations. FINDINGS: LUNGS AND PLEURA: Diffuse ground-glass opacities scattered throughout both lungs. Scarrin g in the lower lobes. No masses, lobar infiltrates, pneumothorax. No pleural effusions, calcificati ons. HILAR AND MEDIASTINAL STRUCTURES: No identified masses or abnormal nodes. No obvious aneurysm. HEART AND VASCULAR STRUCTURES: No aneurysm. No pericardial effusion. UPPER ABDOMEN: No significant findings. Limited exam. THYROID AND OTHER SOFT TISSUES: No masses. No adenopathy. BONES: No significant finding. HARDWARE: None in the chest. OTHER: No other significant findings. IMPRESSION: DIFFUSE GROUND-GLASS OPACITIES SCATTERED THROUGHOUT BOTH LUNGS. NONSPECIFIC APPEARANCE. POSSIBLE ETIOLOGIES INCLUDE INFLAMMATION, INFECTION, OR PULMONARY EDEMA. TECHNICAL DOCUMENTATION: JOB ID: [id number] Quality ID # [id number]: Final reports with documentation of one or more dose reduction techniques (e.g., Au tomated exposure control, adjustment of the mA and/or kV according to patient size, use of iterative reconstruction technique) 2010 [employer]- All Rights Reserved Reading location - IP/workstation name: [email or web address]
--- NOTE | 2017-11-27 12:27 | PDOC PROGRESS REPORT ---
Subjective Progress Note for:: 11/27/17 Subjective:: The patient is a 67-year-old female with a past medical history of COPD, 50-pack -year history, hypertension, hyperlipidemia, depression and anxiety who was admitted on 11/21/17 for a severe COPD exacerbation. The patient is seen on morning rounds with her present. She is found sitting upright in bed on supplemental oxygen at 3 L/min. The patient states that she is unchanged; she continues to have significant dyspnea while at rest, productive cough, and requirement of supplemental oxygen. She reports that her chest wall pain is slightly improved. She states that she spent approximately 6 hours on BiPAP yesterday. She continues to have a right maxillary, frontal, and temporal headache described as pressure. She also reports intermittent muffled hearing and crackling sound today. The patient denies fever, chills, dizziness, typical cardiac chest pain, orthopnea, abdominal pain, nausea vomiting diarrhea. Reason For Visit: COPD EXACERBATION Physical Exam Vital Signs: Temp Pulse Resp BP Pulse Ox 97.6 F 80 19 126/52 H 94 11/27/17 08:00 11/27/17 08:00 11/27/17 08:00 11/27/17 08:00 11/27/17 08:00 Pulse Oximeter Continuous Start: 11/22/17 08: 35 Freq: RTQ4 Status: Active Document 11/27/17 07:35 [facility] (Rec: 11/27/17 08:53 [facility] [email or web address]) Pulse Oximetry Assessment Oxygen Saturation (92-100) 92 Oxygen Flow Rate (L/min) 3 Oxygen Delivery Method Nasal Cannula Equipment Usage Equipment in Use Continuous SpO2 Machine # 11 Intake & Output 11/26/17 11/27/17 11/28/17 06:59 06:59 06:59 Intake Total 1314 1500 Output Total 102 400 Balance 1212 1100 Weight 72.3 kg 72.7 kg General appearance: PRESENT: mild distress, well-developed, well-nourished Head exam: PRESENT: atraumatic, normocephalic Eye exam: PRESENT: conjunctiva pink, EOMI, PERRLA. ABSENT: scleral icterus Ear exam: PRESENT: normal external ear exam Mouth exam: PRESENT: moist, tongue midline Neck exam: ABSENT: carotid bruit, JVD, lymphadenopathy, thyromegaly Respiratory exam: PRESENT: accessory muscle use, decreased breath sounds - Bibasilar, rhonchi - Throughout, symmetrical, tachypnea, wheezes - Inspiratory and expiratory wheezing throughout, other - Supplemental oxygen at 3 L/min. ABSENT: rales Cardiovascular exam: PRESENT: RRR, +S1, +S2. ABSENT: diastolic murmur, rubs, systolic murmur Pulses: PRESENT: normal dorsalis pedis pul Vascular exam: PRESENT: normal capillary refill GI/Abdominal exam: PRESENT: normal bowel sounds, soft. ABSENT: distended, guarding, mass, organolmegaly, rebound, tenderness Rectal exam: PRESENT: deferred Extremities exam: PRESENT: full ROM. ABSENT: calf tenderness, clubbing, pedal edema Neurological exam: PRESENT: alert, awake, oriented to person, oriented to place , oriented to time, oriented to situation, CN II-XII grossly intact. ABSENT: motor sensory deficit Psychiatric exam: PRESENT: appropriate affect, normal mood. ABSENT: homicidal ideation, suicidal ideation Skin exam: PRESENT: dry, intact, warm. ABSENT: cyanosis, rash Results Laboratory Results: 11/27/17 06:25 11/27/17 03:54 11/27/17 11/27/17 11/27/17 03:54 03:54 06:25 WBC Cancelled 12.5 H RBC Cancelled 3.88 Hgb Cancelled 11.9 L Hct Cancelled 35.3 L MCV Cancelled 91 MCH Cancelled 30.8 MCHC Cancelled 33.8 RDW Cancelled 14.2 H Plt Count Cancelled 376 Sodium 144.7 Potassium 4.5 Chloride 103 Carbon Dioxide 28 Anion Gap 14 BUN 19 Creatinine 0.41 L Est GFR ( Amer) > 60 Est GFR (Non-Af Amer) > 60 Glucose 110 Calcium 9.5 11/22/17 09:33 Blood Blood Culture - Final NO GROWTH IN 5 DAYS 11/22/17 08:42 Blood Blood Culture - Final NO GROWTH IN 5 DAYS 11/22/17 11/22/17 11/22/17 06:49 12:35 18:05 Troponin I < 0.012 < 0.012 < 0.012 Impressions: Chest X-Ray 11/22/17 00:00 IMPRESSION: NO ACUTE RADIOGRAPHIC FINDING IN THE CHEST. Modified Barium Swallow 11/23/17 00:00 IMPRESSION: NO EVIDENCE OF PENETRATION OR ASPIRATION.PLEASE SEE SPEECH PATHOLOGIST REPORT FOR OTHER FINDINGS AND RECOMMENDATIONS. Sinuses CT 11/25/17 00:00 IMPRESSION: Diffuse inflammatory changes throughout the paranasal sinuses as above. No nasal masses. No aggressive bony destruction nasal cavity worrisome for tumor or aggressive infection. Chest CT 11/27/17 10:20 IMPRESSION: DIFFUSE GROUND-GLASS OPACITIES SCATTERED THROUGHOUT BOTH LUNGS. NONSPECIFIC APPEARANCE. POSSIBLE ETIOLOGIES INCLUDE INFLAMMATION, INFECTION, OR PULMONARY EDEMA. Assessment & Plan - Diagnosis (1) Acute and chronic respiratory failure Qualifiers: Respiratory failure complication: hypoxia and hypercapnia Qualified Code(s) : J96.21 - Acute and chronic respiratory failure with hypoxia; J96.22 - Acute and chronic respiratory failure with hypercapnia; J96.22 - Acute and chronic respiratory failure with hypercapnia; J96.22 - Acute and chronic respiratory failure with hypercapnia Is this a current diagnosis for this admission?: Yes Plan: Gradual improvement. Continues to have adventitious lung sounds of rhonchi and wheezing. Rhonchi is somewhat decreased today and less coarse sounding; she continues to have inspiratory and expiratory wheezing throughout. Secondary to COPD exacerbation and upper respiratory infection. Chest x-ray demonstrated mild pulmonary vascular congestion. Initial ABG showed hypercapnic respiratory acidosis with metabolic compensation. Modified barium swallow study is negative for aspiration. PFT pending. Blood cultures have no growth to date. Sputum culture demonstrated normal yun. D-dimer on admission was negative. Chest CT reveals ground glass opacities throughout bilateral lungs suggestive of inflammation, infection, edema The patient is admitted to the medical floor on continuous cardiac telemetry. She is provided supplemental oxygen to maintain oxygen saturations greater than 88% BiPAP as needed; strongly encouraged to use today. She is provided scheduled and as needed nebulizer treatments. Continue IV Solu-Medrol. She is empirically placed on IV Levaquin given the severity of her symptoms; day #6 Incentive spirometry and flutter valve to bedside. We will attempt to repeat inpatient PFT as her acute symptoms improved. Continue Mucinex, Tessalon Perles, and Singulair. Pulmonology has been consulted; appreciate Dr. Childress's evaluation and recommendations. The patient does not appear follow-up, however, will assess BNP with morning labs (2) COPD with acute exacerbation Is this a current diagnosis for this admission?: Yes Plan: The patient endorses a 50 year pack history but denies known diagnosis of COPD. Plan as above. (3) Cough Is this a current diagnosis for this admission?: Yes Plan: Secondary to COPD exacerbation/bronchitis and associated with lateral/posterior chest wall pain. Decreased sputum production. Sputum cultures show normal yun. Continue Mucinex. Continue Tessalon Perles Tylenol, lidocaine patches, and as needed oxycodone as needed for pain (4) HTN (hypertension) Qualifiers: Hypertension type: essential hypertension Qualified Code(s): I10 - Essential (primary) hypertension Is this a current diagnosis for this admission?: Yes Plan: The patient endorses a history of hypertension but is not on home antihypertensive medications. Some slightly elevated blood pressures; highest is 143/65. Will continue to monitor. As needed IV hydralazine for blood pressure control. (5) HLD (hyperlipidemia) Qualifiers: Hyperlipidemia type: unspecified Qualified Code(s): E78.5 - Hyperlipidemia , unspecified Is this a current diagnosis for this admission?: Yes Plan: Continue home dose statin. (6) Depression Qualifiers: Depression Type: reactive depression Qualified Code(s): F32.9 - Major depressive disorder, single episode, unspecified Is this a current diagnosis for this admission?: Yes Plan: Continue home dose BuSpar and Prozac. She denies suicidal and homicidal ideation. (7) Epistaxis, recurrent Is this a current diagnosis for this admission?: Yes Plan: Spontaneous epistaxis early yesterday morning. Patient reports frequent nosebleeds. She also complains of right maxillary facial pressure. She denies sore throat, postnasal drip, ear pain. She denies history of sinusitis. CT of the sinuses revealed diffuse inflammatory changes throughout the para nasal sinuses with mucous membrane thickening narrowing the right maxillary sinus outlet and occlusion of the maxillary sinus outlet on the left side. Continue Flonase. [place] to bedside for comfort. Currently receiving steroids for COPD exacerbation. Recommend outpatient ENT follow-up. (8) DNR (do not resuscitate) Is this a current diagnosis for this admission?: Yes - Time Time Spent with patient: 15-24 minutes Medications reviewed and adjusted accordingly: Yes
[2017-11-27] MEDS: LEVOFLOXACIN 750 MG TABLET PO SCH (14:20)
[2017-11-27] MEDS: FLUTICASONE NASAL SPRAY 50 MCG/SPRY 120 SPRAY/16 GM NAREB SCH (14:24)
--- NOTE | 2017-11-27 17:10 | CONSULTATION REPORT E ---
Consultation Report NAME: AMELIE EDMOND : 1950 AGE: 67Y DATE: 11/27/2017 ROOM: 528 A TO: GOVIND LI M.D. FROM: NATALYA MARTIN M.D. Requesting Physician [facility]TORHINOLARYNGOLOGY CONSULTATION REFERRING PHYSICIAN: Melody Young, nurse practitioner. PRESENTING COMPLAINT: Headache, epistaxis, otalgia and hearing loss. HISTORY OF PRESENTING COMPLAINT: This is a 67-year-old lady, who is originally from [place], who was admitted through the emergency department on 11/21/2017 with a 1 week history of advancing shortness of breath and cough. Her is from [facility], and she had recently been up there for a , and she became ill on her return to [place]. She was febrile and had headache, chest pain and cough, and she was admitted to the hospital for treatment of an exacerbation of COPD. Her chest x-ray at the time was reported as showing no acute radiographic signs. Examination 0n November 21, revealed normal vital signs with oxygen saturation down to 94% on room air. There was respiratory acidosis with metabolic compensation on lab work. EKG showed normal sinus rhythm. Audible wheezing could be heard in the room, and all over the lung robles. PAST MEDICAL HISTORY: 1. Hyperlipidemia. 2. COPD. 3. Asthma. 4. Ischemic CVA. 5. Migraine headaches. 6. GERD. 7. Osteoarthritis. 8. Fibromyalgia. 9. Depression/anxiety. PAST SURGICAL HISTORY: 1. Cholecystectomy. 2. Tonsillectomy. 3. Tubal ligation. 4. Hysterectomy. 5. Some kind of nasal operation that was done at age 10 in [place], which she states "did not workout." FAMILY HISTORY: 1. Coronary artery disease. 2. Diabetes mellitus. 3. Breast cancer. 4. Migraine headaches. SOCIAL HISTORY: Reveals that she is originally from [place]. Since being to her current she has not worked. She has been an everyday smoker up until her admission. She admits to a half pack to a pack a day x50+ years. Denies alcohol use. No street drugs. MEDICATIONS: 1. Seroquel. 2. Valium 5 mg. 3. Prozac. 4. Gabapentin. 5. Carafate. 6. Ventolin HFA. 7. Augmentin 875/125 mg on admission. 8. BuSpar 15 mg. 9. Fioricet 50/300/40 mg. 10. Aricept. 11. Flonase nasal spray. 12. Advair 250/50 Diskus. 13. Mobic. 14. Medrol Dosepak from her PCP. 15. Singulair 10 mg. 16. Crestor 10 mg. The patient is also additional now on; 1. Acetaminophen. 2. Albuterol/ipratropium DuoNeb. 3. Lipitor. 4. Benzonatate Perles. 5. Budesonide. 6. Enoxaparin. 7. Guaifenesin. 8. Hydralazine. 9. Xopenex neb. 10. Levaquin 750 mg. 11. Lidocaine patch. 12. Methylprednisolone IV. 13. Nicoderm patch. 14. Zofran. 15. Oxycodone. 16. Phenergan 25 mg. 17. [place] nasal spray. 18. Sucralfate. 19. Ketorolac IV. ALLERGIES: None known to medications. REVIEW OF SYSTEMS: Is otherwise noncontributory. She describes her headaches as been occipitoparietal. She places her palms on her parietal scalp, bilaterally. She is bothered by daily epistaxis. She feels that the blood clots cause further nasal obstruction. She does not wear her dentures at night. PHYSICAL EXAMINATION: GENERAL: Reveals a 1+ overweight, 67-year-old lady with probably dyed, short, curly hair who is lying in a semirecumbent position in the hospital bed with her sitting on a chair in the same room. VITAL SIGNS: Include a temperature of 97.8 degrees Fahrenheit. Heart rate: 84 per minute. Blood pressure: 116/45 mmHg. Respiratory rate: 23 per minute. Oxygen saturations: 90% with oxygen at 3 liters per minute via nasal cannulae. HEAD AND NECK: The pupils are equal and reacting. It would appear that she has had cataract surgery. External ocular movements are full and equal. Cranial nerves III-XII: grossly intact. The nose reveals blood clot, bilaterally. There is an anterior septal perforation. No polyps or pus is noted. Air flow is reasonable. Oral exam reveals that she has undergone a total upper dental clearance. Many of her molar and premolar teeth are missing from the lower jaw. The tonsils are surgically absent. The pharynx is clean. The tongue is moist and protrudes in the midline. Ear canals are clear, bilaterally. Tympanic membranes are intact, translucent and delicate. There is no temporomandibular joint pain or arthropathy detected. Cervical exam is benign. LABORATORY: Her recent lab work has all been reviewed. The mild elevation in white count was noted. RADIOLOGY: The CT scan from 2 days ago was reviewed. It is interesting to note that the septal perforation was not reported by the radiologist. Additionally, with the magnifying glass feature, it can be seen the maxillary sinuses are open, bilaterally. The opacification of the ethmoid air cells and parts of the frontal and sphenoid sinuses is likely largely mucosal thickening and not fluid. It would be interesting to measure the densities of these opacifications. There is no significant laterality to the level of congestion that she has. IMPRESSION: 1. Septal perforation with evident recent epistaxis. 2. Chronic sinusitis, largely inflammatory, possibly associated with cigarette smoking plus/minus allergy. 3. No evidence of any acute ear disease. 4. Headache: This is unlikely to be associated with sinus pathology. More likely this is a representation of vascular headache or possibly derived from compression of the upper cervical nerves due to cervical arthritis? PLAN: 1. Surgery: This is a difficult situation and surgical intervention should be kept to a minimum. 2. Bacitracin: The likelihood of epistaxis will continue while oxygen is being delivered via nasal cannulae, even though it is humidified. Nocturnal use of bacitracin ointment has been discouraged in some quarters on the theory that it invites the risk of fire, however, unlikely that is. Such medications may, however, offer some value from the point of view of protection of the perforation from the drying effect of the oxygen flow. 3. Sinusitis: From the point of view of her sinuses, she appears to be on maximal medical therapy. 4. Positional Therapy: The only additional thought is to apply the Flonase nasal spray with the patient lying transversely across her bed with her head hanging so that Flonase will gain better access to the frontoethmoidal recess and middle meatus. In her case, this may well be prohibitively difficult. Her , however, voiced enthusiasm to at least try this. The outcome will not be clear for some 3-4 weeks, however. 5. Follow-Up: A follow up visit with Dr. Paez at [facility] would certainly be in order and he voiced enthusiasm for that also. If such a follow up could be arranged at the time of her discharge that would be helpful. Otherwise, no other action (as far as her sinuses are concerned) is required. A neurology opinion is suggested. DICTATING PHYSICIAN: GOVIND LI M.D. [id number] PHY#: [id number] ID: [id number] JOB#: [id number] ACCT: [id number] cc:GOVIND LI M.D. > MTDD
[2017-11-27] MEDS: ATORVASTATIN CALCIUM 20 MG TABLET PO SCH (22:19)
[2017-11-27] MEDS: MONTELUKAST SODIUM 10 MG TABLET PO SCH (22:19)
[2017-11-28] MEDS: IPRATROPIUM/ALBUTEROL 0.5-2.5 MG/3 ML AMPUL NEB SCH ×6 (00:29→19:48)
[2017-11-28] MEDS: PHARMACY COMMUNICATION ORDER MC SCH ×2 (02:48→22:31)
[2017-11-28] MEDS: BUSPIRONE HCL 10 MG TABLET PO SCH ×3 (05:18→22:30)
[2017-11-28] MEDS: METHYLPREDNISOLONE INJ 40 MG/1 ML SDV IV SCH ×3 (05:19→22:30)
[2017-11-28] MEDS: OXYCODONE HCL IR 5 MG TABLET PO PRN ×2 (05:19→19:52)
[2017-11-28 06:26] LABS: ABSOLUTE LYMPHOCYTES (AUTO) 1.4 10^3/uL (0.5-4.7); ABSOLUTE MONOCYTES (AUTO) 0.6 10^3/uL (0.1-1.4); ABSOLUTE NEUT (AUTO) 11.4 10^3/uL (1.7-8.2); BASOPHILS % (AUTO) 0.3 % (0-2); HEMOGLOBIN 11.8 g/dL (12.0-15.5); LYMPHOCYTES % (AUTO) 10.2 % (13-45); MEAN CORPUSCULAR HEMOGLOBIN 31.5 pg (27.0-33.4); MEAN CORPUSCULAR HGB CONC 34.6 g/dL (32.0-36.0); MEAN CORPUSCULAR VOLUME 91 fl (80-97); MONOCYTES % (AUTO) 4.7 % (3-13); PLATELET COUNT 364 10^3/uL (150-450); RED BLOOD COUNT 3.74 10^6/uL (3.72-5.28); SEGMENTED NEUTROPHILS % (AUTO) 84.8 % (42-78); TOTAL CELLS COUNTED % (AUTO) 100 %; WHITE BLOOD COUNT 13.5 10^3/uL (4.0-10.5)
[2017-11-28] MEDS: BUDESONIDE NEB 0.5 MG/2 ML AMPUL NEB SCH ×2 (07:47→19:48)
[2017-11-28] MEDS: SUCRALFATE 1 GM TABLET PO SCH ×4 (09:28→22:29)
[2017-11-28] MEDS: GUAIFENESIN 600 MG TABLET.SA PO SCH ×2 (09:29→22:29)
[2017-11-28] MEDS: BENZONATATE 100 MG CAPSULE PO SCH (09:30)
[2017-11-28] MEDS: DONEPEZIL HCL 5 MG TABLET PO SCH (09:30)
[2017-11-28] MEDS: NICOTINE 21 MG/24 HR PATCH.TD24 TD SCH (09:30)
[2017-11-28] MEDS: ENOXAPARIN SODIUM INJ 40 MG/0.4 ML DISP.SYRIN SUBCUT SCH (09:30)
[2017-11-28] MEDS: LIDOCAINE 5% (700 MG) TRANSDERMAL ADH..PATCH TP SCH (09:30)
[2017-11-28] MEDS: FLUOXETINE HCL 20 MG CAPSULE PO SCH (09:30)
[2017-11-28] MEDS ORDERED: BENZONATATE 100 MG CAPSULE PO PRN (11:28)
--- NOTE | 2017-11-28 11:39 | PDOC PROGRESS REPORT ---
Subjective Progress Note for:: 11/28/17 Subjective:: The patient is a 67-year-old female with a past medical history of COPD, 50-pack -year history, hypertension, hyperlipidemia, depression and anxiety who was admitted on 11/21/17 for a severe COPD exacerbation. The patient is seen on morning rounds with her present. She is found resting in bed comfortably on supplemental oxygen at 3 L/min. Upon entering the room, she is found sleeping with pulse oximetry of 94% and heart rate in the mid 80s. Her oxygenation is reduced and she maintains oxygen saturations above 90% until she wakes and begins talking; SPO2 then dipped to 86%. Her oxygen was resumed at 2.5 L/min. The patient states that she is feeling slightly better today. She continues to have shortness of breath and a productive cough. They are pleased that ENT was able to see her yesterday and have no further questions regarding her sinuses. The patient denies fever, chills, dizziness, typical cardiac chest pain, orthopnea, abdominal pain, nausea vomiting diarrhea. They have no new questions or concerns. Reason For Visit: COPD EXACERBATION Physical Exam Vital Signs: Temp Pulse Resp BP Pulse Ox 98.0 F 68 16 131/44 H 92 11/28/17 07:15 11/28/17 07:47 11/28/17 07:47 11/28/17 07:15 11/28/17 11:01 Pulse Oximeter Continuous Start: 11/22/17 08: 35 Freq: RTQ4 Status: Active Document 11/28/17 11:01 [facility] (Rec: 11/28/17 11:01 [facility] [email or web address]) Pulse Oximetry Assessment Oxygen Saturation (92-100) 92 Oxygen Flow Rate (L/min) 3 Oxygen Delivery Method Nasal Cannula Equipment Usage Equipment in Use Continuous SpO2 Machine # 11 Intake & Output 11/27/17 11/28/17 11/29/17 06:59 06:59 06:59 Intake Total 1500 2780 Output Total 400 Balance 1100 2780 Weight 72.7 kg 72.9 kg General appearance: PRESENT: no acute distress, cooperative, well-developed, well-nourished, other - Overweight Head exam: PRESENT: atraumatic, normocephalic Eye exam: PRESENT: conjunctiva pink, EOMI, PERRLA. ABSENT: scleral icterus Ear exam: PRESENT: normal external ear exam Mouth exam: PRESENT: moist, tongue midline Neck exam: ABSENT: carotid bruit, JVD, lymphadenopathy, thyromegaly Respiratory exam: PRESENT: decreased breath sounds - Bibasilar, prolonged expiratory phas, rhonchi - Throughout, symmetrical, tachypnea, other - Overall, increased airflow; supplemental oxygen via nasal cannula. ABSENT: crackles, rales, wheezes Cardiovascular exam: PRESENT: RRR, +S1, +S2. ABSENT: diastolic murmur, rubs, systolic murmur Pulses: PRESENT: normal dorsalis pedis pul Vascular exam: PRESENT: normal capillary refill GI/Abdominal exam: PRESENT: normal bowel sounds, soft. ABSENT: distended, guarding, mass, organolmegaly, rebound, tenderness Rectal exam: PRESENT: deferred Extremities exam: PRESENT: full ROM. ABSENT: calf tenderness, clubbing, pedal edema Neurological exam: PRESENT: alert, awake, oriented to person, oriented to place , oriented to time, oriented to situation, CN II-XII grossly intact. ABSENT: motor sensory deficit Psychiatric exam: PRESENT: appropriate affect, normal mood. ABSENT: homicidal ideation, suicidal ideation Skin exam: PRESENT: dry, intact, warm. ABSENT: cyanosis, rash Results Laboratory Results: 11/28/17 06:04 11/27/17 03:54 11/28/17 06:04 WBC 13.5 H RBC 3.74 Hgb 11.8 L Hct 34.0 L MCV 91 MCH 31.5 MCHC 34.6 RDW 14.0 Plt Count 364 Seg Neutrophils % 84.8 H Lymphocytes % 10.2 L Monocytes % 4.7 Eosinophils % 0.0 Basophils % 0.3 Absolute Neutrophils 11.4 H Absolute Lymphocytes 1.4 Absolute Monocytes 0.6 Absolute Eosinophils 0.0 Absolute Basophils 0.0 11/22/17 09:33 Blood Blood Culture - Final NO GROWTH IN 5 DAYS 11/22/17 08:42 Blood Blood Culture - Final NO GROWTH IN 5 DAYS 11/22/17 11/22/17 11/22/17 06:49 12:35 18:05 Troponin I < 0.012 < 0.012 < 0.012 NT-Pro-B Natriuret Pep 11/28/17 06:04 Troponin I NT-Pro-B Natriuret Pep 45 Impressions: Chest X-Ray 11/22/17 00:00 IMPRESSION: NO ACUTE RADIOGRAPHIC FINDING IN THE CHEST. Modified Barium Swallow 11/23/17 00:00 IMPRESSION: NO EVIDENCE OF PENETRATION OR ASPIRATION.PLEASE SEE SPEECH PATHOLOGIST REPORT FOR OTHER FINDINGS AND RECOMMENDATIONS. Sinuses CT 11/25/17 00:00 IMPRESSION: Diffuse inflammatory changes throughout the paranasal sinuses as above. No nasal masses. No aggressive bony destruction nasal cavity worrisome for tumor or aggressive infection. Chest CT 11/27/17 10:20 IMPRESSION: DIFFUSE GROUND-GLASS OPACITIES SCATTERED THROUGHOUT BOTH LUNGS. NONSPECIFIC APPEARANCE. POSSIBLE ETIOLOGIES INCLUDE INFLAMMATION, INFECTION, OR PULMONARY EDEMA. Assessment & Plan - Diagnosis (1) Acute and chronic respiratory failure Qualifiers: Respiratory failure complication: hypoxia and hypercapnia Qualified Code(s) : J96.21 - Acute and chronic respiratory failure with hypoxia; J96.22 - Acute and chronic respiratory failure with hypercapnia; J96.22 - Acute and chronic respiratory failure with hypercapnia; J96.22 - Acute and chronic respiratory failure with hypercapnia Is this a current diagnosis for this admission?: Yes Plan: Continued improvement. Rhonchi is improved today; no wheezing present. She remains tachypneic and hypoxic on room air. Secondary to COPD exacerbation and upper respiratory infection. Chest x-ray demonstrated mild pulmonary vascular congestion. Initial ABG showed hypercapnic respiratory acidosis with metabolic compensation. Modified barium swallow study is negative for aspiration. PFT pending. Blood cultures have no growth to date. Sputum culture demonstrated normal yun. D-dimer on admission was negative. Chest CT reveals ground glass opacities throughout bilateral lungs suggestive of inflammation, infection, edema ProBNP this morning is 45 The patient is admitted to the medical floor on continuous cardiac telemetry. She is provided supplemental oxygen to maintain oxygen saturations greater than 88% BiPAP as needed; continue to encourage use. She is provided scheduled and as needed nebulizer treatments; will decrease scheduled nebs from every 6 to every 4 hours. Continue IV Solu-Medrol; slight dose reduction today. She is empirically placed on IV Levaquin; day #5 of Levaquin. Patient previously received 3 days of doxycycline. Incentive spirometry and flutter valve to bedside. We will attempt to repeat inpatient PFT as her acute symptoms improved. Continue Mucinex, Tessalon Perles, and Singulair. I have added Claritin. Pulmonology has been consulted; appreciate Dr. Childress's evaluation and recommendations. (2) COPD with acute exacerbation Is this a current diagnosis for this admission?: Yes Plan: The patient endorses a 50 year pack history but denies known diagnosis of COPD. Plan as above. (3) Cough Is this a current diagnosis for this admission?: Yes Plan: Improving; secondary to COPD exacerbation/bronchitis and associated with lateral /posterior chest wall pain. Decreased sputum production. Sputum cultures show normal yun. Continue Mucinex. Continue Tessalon Perles Tylenol, lidocaine patches, and as needed oxycodone as needed for pain (4) HTN (hypertension) Qualifiers: Hypertension type: essential hypertension Qualified Code(s): I10 - Essential (primary) hypertension Is this a current diagnosis for this admission?: Yes Plan: The patient endorses a history of hypertension but is not on home antihypertensive medications. Some slightly elevated blood pressures; highest is 143/65. Will continue to monitor. As needed IV hydralazine for blood pressure control. (5) HLD (hyperlipidemia) Qualifiers: Hyperlipidemia type: unspecified Qualified Code(s): E78.5 - Hyperlipidemia , unspecified Is this a current diagnosis for this admission?: Yes Plan: Continue home dose statin. (6) Depression Qualifiers: Depression Type: reactive depression Qualified Code(s): F32.9 - Major depressive disorder, single episode, unspecified Is this a current diagnosis for this admission?: Yes Plan: Continue home dose BuSpar and Prozac. She denies suicidal and homicidal ideation. (7) Epistaxis, recurrent Is this a current diagnosis for this admission?: Yes Plan: Patient reports frequent spontaneous epistaxis. She also complains of right maxillary facial pressure with intermittent ear discomfort. She denies sore throat, postnasal drip, ear pain. She denies history of sinusitis. CT of the sinuses revealed diffuse inflammatory changes throughout the para nasal sinuses with mucous membrane thickening narrowing the right maxillary sinus outlet and occlusion of the maxillary sinus outlet on the left side. In nose and throat was consulted; appreciate their evaluation recommendations. Continue Flonase. [place] to bedside for comfort. Currently receiving steroids for COPD exacerbation. Recommend outpatient ENT follow-up. (8) Leukocytosis Is this a current diagnosis for this admission?: Yes Plan: Patient with WBC of 6.0 on admission and trending up to 13.5 today. Multifactorial secondary to possible pneumonia and steroid therapy. Cultures and antibiotics as above. I believe that the current elevation of WBCs is reflective of steroid therapy and not concurrent or worsening infection as the patient remains afebrile and although her recovery is slow, she is clinically improving. (9) DNR (do not resuscitate) Is this a current diagnosis for this admission?: Yes - Time Time Spent with patient: 15-24 minutes Medications reviewed and adjusted accordingly: Yes Anticipated discharge: Home
[2017-11-28] MEDS: LEVOFLOXACIN 750 MG TABLET PO SCH (14:00)
[2017-11-28] MEDS: FLUTICASONE NASAL SPRAY 50 MCG/SPRY 120 SPRAY/16 GM NAREB SCH (16:01)
[2017-11-28] MEDS: ACETAMINOPHEN 325 MG TABLET PO PRN (16:04)
[2017-11-28] MEDS: LORATADINE 10 MG TABLET PO SCH (22:29)
[2017-11-28] MEDS: ATORVASTATIN CALCIUM 20 MG TABLET PO SCH (22:30)
[2017-11-28] MEDS: MONTELUKAST SODIUM 10 MG TABLET PO SCH (22:30)
[2017-11-29] MEDS: IPRATROPIUM/ALBUTEROL 0.5-2.5 MG/3 ML AMPUL NEB SCH ×4 (02:13→20:16)
[2017-11-29 05:46] LABS: HEMATOCRIT 36.5 % (36.0-47.0); HEMOGLOBIN 12.4 g/dL (12.0-15.5); MEAN CORPUSCULAR HEMOGLOBIN 31.5 pg (27.0-33.4); MEAN CORPUSCULAR VOLUME 93 fl (80-97); PLATELET COUNT 395 10^3/uL (150-450); RED BLOOD COUNT 3.94 10^6/uL (3.72-5.28); RED CELL DISTRIBUTION WIDTH 14.4 % (11.5-14.0)
[2017-11-29] MEDS: OXYCODONE HCL IR 5 MG TABLET PO PRN ×3 (05:48→20:13)
[2017-11-29] MEDS: BUSPIRONE HCL 10 MG TABLET PO SCH ×3 (05:49→23:03)
[2017-11-29] MEDS: METHYLPREDNISOLONE INJ 40 MG/1 ML SDV IV SCH ×3 (05:49→22:20)
[2017-11-29 06:06] LABS: ANION GAP 15 (5-19); BLOOD UREA NITROGEN 21 mg/dL (7-20); CALCIUM 9.6 mg/dL (8.4-10.2); CARBON DIOXIDE 27 mmol/L (22-30); CHLORIDE 103 mmol/L (98-107); GLUCOSE 134 mg/dL (75-110); POTASSIUM 4.5 mmol/L (3.6-5.0); SODIUM 145.3 mmol/L (137-145)
[2017-11-29] MEDS: BUDESONIDE NEB 0.5 MG/2 ML AMPUL NEB SCH ×2 (08:01→20:16)
[2017-11-29] MEDS: SUCRALFATE 1 GM TABLET PO SCH ×4 (08:28→22:20)
[2017-11-29] MEDS: DONEPEZIL HCL 5 MG TABLET PO SCH (09:58)
[2017-11-29] MEDS: FLUOXETINE HCL 20 MG CAPSULE PO SCH (09:58)
[2017-11-29] MEDS: GUAIFENESIN 600 MG TABLET.SA PO SCH ×2 (09:58→23:01)
[2017-11-29] MEDS: LIDOCAINE 5% (700 MG) TRANSDERMAL ADH..PATCH TP SCH (09:59)
[2017-11-29] MEDS: NICOTINE 21 MG/24 HR PATCH.TD24 TD SCH (09:59)
[2017-11-29] MEDS: ENOXAPARIN SODIUM INJ 40 MG/0.4 ML DISP.SYRIN SUBCUT SCH (10:00)
--- NOTE | 2017-11-29 12:55 | PDOC PROGRESS REPORT ---
Subjective Progress Note for:: 11/29/17 Subjective:: The patient is a 67-year-old female with a past medical history of COPD, 50-pack -year history, hypertension, hyperlipidemia, depression and anxiety who was admitted on 11/21/17 for a severe COPD exacerbation. The patient is seen on morning rounds with her present. She is found resting in bed comfortably on supplemental oxygen at 3 L/min. she reports that she is unimproved from yesterday. She continues to have dyspnea while at rest, tachypnea, oxygen dependence, and a productive cough. She does report that her chest wall pain is controlled with oxycodone. She confirms that she did not use BiPAP overnight. We discussed again that BiPAP may lead to quicker resolution of COPD exacerbation. I also discussed with the patient and that the soto should be removed from the room and visitors should not wear perfumes or colognes in case there was an allergic or asthma component to her continued symptoms. The patient denies fever, chills, dizziness, typical cardiac chest pain, orthopnea, abdominal pain, nausea vomiting diarrhea. Reason For Visit: COPD EXACERBATION Physical Exam Vital Signs: Temp Pulse Resp BP Pulse Ox 98.2 F 78 18 122/48 L 94 11/29/17 07:20 11/29/17 08:00 11/29/17 08:00 11/29/17 07:20 11/29/17 08:00 Pulse Oximeter Continuous Start: 11/22/17 08: 35 Freq: RTQ4 Status: Active Document 11/29/17 08:00 LDA (Rec: 11/29/17 08:05 LDA [email or web address]) Pulse Oximetry Assessment Oxygen Saturation (92-100) 94 Oxygen Flow Rate (L/min) 2 Oxygen Delivery Method Nasal Cannula Fraction of Inspired Oxygen (FIO2) 28 Equipment Usage Equipment in Use Continuous SpO2 Machine # 11 Intake & Output 11/28/17 11/29/17 11/30/17 06:59 06:59 06:59 Intake Total 2780 1095 Balance 2780 1095 Weight 72.9 kg 72.9 kg General appearance: PRESENT: no acute distress, well-developed, well-nourished, other - Overweight Head exam: PRESENT: atraumatic, normocephalic Eye exam: PRESENT: conjunctiva pink, EOMI, PERRLA. ABSENT: scleral icterus Ear exam: PRESENT: normal external ear exam Mouth exam: PRESENT: moist, tongue midline Neck exam: ABSENT: carotid bruit, JVD, lymphadenopathy, thyromegaly Respiratory exam: PRESENT: prolonged expiratory phas, rhonchi, symmetrical, tachypnea, wheezes, other - Supplemental oxygen at 3 L/min. ABSENT: rales Cardiovascular exam: PRESENT: RRR, +S1, +S2. ABSENT: diastolic murmur, rubs, systolic murmur Pulses: PRESENT: normal dorsalis pedis pul Vascular exam: PRESENT: normal capillary refill GI/Abdominal exam: PRESENT: normal bowel sounds, soft. ABSENT: distended, guarding, mass, organolmegaly, rebound, tenderness Rectal exam: PRESENT: deferred Extremities exam: PRESENT: full ROM. ABSENT: calf tenderness, clubbing, pedal edema Neurological exam: PRESENT: alert, awake, oriented to person, oriented to place , oriented to time, oriented to situation, CN II-XII grossly intact. ABSENT: motor sensory deficit Psychiatric exam: PRESENT: appropriate affect, normal mood. ABSENT: homicidal ideation, suicidal ideation Skin exam: PRESENT: dry, intact, warm. ABSENT: cyanosis, rash Results Laboratory Results: 11/29/17 03:55 11/29/17 03:55 11/29/17 11/29/17 03:55 03:55 WBC 14.0 H RBC 3.94 Hgb 12.4 Hct 36.5 MCV 93 MCH 31.5 MCHC 34.0 RDW 14.4 H Plt Count 395 Sodium 145.3 H Potassium 4.5 Chloride 103 Carbon Dioxide 27 Anion Gap 15 BUN 21 H Creatinine 0.40 L Est GFR ( Amer) > 60 Est GFR (Non-Af Amer) > 60 Glucose 134 H Calcium 9.6 11/22/17 11/22/17 11/22/17 06:49 12:35 18:05 Troponin I < 0.012 < 0.012 < 0.012 NT-Pro-B Natriuret Pep 11/28/17 06:04 Troponin I NT-Pro-B Natriuret Pep 45 Impressions: Chest X-Ray 11/22/17 00:00 IMPRESSION: NO ACUTE RADIOGRAPHIC FINDING IN THE CHEST. Modified Barium Swallow 11/23/17 00:00 IMPRESSION: NO EVIDENCE OF PENETRATION OR ASPIRATION.PLEASE SEE SPEECH PATHOLOGIST REPORT FOR OTHER FINDINGS AND RECOMMENDATIONS. Sinuses CT 11/25/17 00:00 IMPRESSION: Diffuse inflammatory changes throughout the paranasal sinuses as above. No nasal masses. No aggressive bony destruction nasal cavity worrisome for tumor or aggressive infection. Chest CT 11/27/17 10:20 IMPRESSION: DIFFUSE GROUND-GLASS OPACITIES SCATTERED THROUGHOUT BOTH LUNGS. NONSPECIFIC APPEARANCE. POSSIBLE ETIOLOGIES INCLUDE INFLAMMATION, INFECTION, OR PULMONARY EDEMA. Assessment & Plan - Diagnosis (1) Acute and chronic respiratory failure Qualifiers: Respiratory failure complication: hypoxia and hypercapnia Qualified Code(s) : J96.21 - Acute and chronic respiratory failure with hypoxia; J96.22 - Acute and chronic respiratory failure with hypercapnia; J96.22 - Acute and chronic respiratory failure with hypercapnia; J96.22 - Acute and chronic respiratory failure with hypercapnia Is this a current diagnosis for this admission?: Yes Plan: Unchanged. Rhonchi and wheezing present. She remains tachypneic and hypoxic on room air. Secondary to COPD exacerbation and upper respiratory infection. Chest x-ray demonstrated mild pulmonary vascular congestion. Initial ABG showed hypercapnic respiratory acidosis with metabolic compensation. Modified barium swallow study is negative for aspiration. PFT pending. Blood cultures have no growth to date. Sputum culture demonstrated normal yun. D-dimer on admission was negative. Chest CT reveals ground glass opacities throughout bilateral lungs suggestive of inflammation, infection, edema ProBNP 45 The patient is admitted to the medical floor on continuous cardiac telemetry. She is provided supplemental oxygen to maintain oxygen saturations greater than 88% BiPAP as needed; continue to encourage use. She is provided scheduled and as needed nebulizer treatments. Continue IV Solu-Medrol; will hold on dose reduction today as she is currently wheezing. The patient received 3 days of doxycycline followed by 5 days of Levaquin. Noting that Levaquin provides appropriate gram-positive, gram-negative, and atypical coverage, the patient continues to have persistent dyspnea, sputum production, chest CT questionable for pneumonia, and an increasing white count despite weaning of steroids. Therefore, will place the patient on Augmentin for beta-lactam properties and upper respiratory symptoms with CT of the sinuses demonstrating inflammation (perhaps there is some chronic sinusitis present). Incentive spirometry and flutter valve to bedside. We will attempt to repeat inpatient PFT as her acute symptoms improved. Continue Mucinex, Tessalon Perles, and Singulair. I have added Claritin. Patient and family instructed to remove fresh soto from the room and to avoid exposure to colognes/perfumes. Pulmonology has been consulted; appreciate Dr. Childress's evaluation and recommendations. (2) COPD with acute exacerbation Is this a current diagnosis for this admission?: Yes Plan: The patient endorses a 50 year pack history but denies known diagnosis of COPD. Plan as above. (3) Cough Is this a current diagnosis for this admission?: Yes Plan: Improving; secondary to COPD exacerbation/bronchitis and associated with lateral /posterior chest wall pain. Decreased sputum production. Sputum cultures show normal yun. Continue Mucinex. Continue Tessalon Perles Tylenol, lidocaine patches, and as needed oxycodone as needed for pain (4) HTN (hypertension) Qualifiers: Hypertension type: essential hypertension Qualified Code(s): I10 - Essential (primary) hypertension Is this a current diagnosis for this admission?: Yes Plan: The patient endorses a history of hypertension but is not on home antihypertensive medications. Some slightly elevated blood pressures; highest is 143/65. Will continue to monitor. As needed IV hydralazine for blood pressure control. (5) HLD (hyperlipidemia) Qualifiers: Hyperlipidemia type: unspecified Qualified Code(s): E78.5 - Hyperlipidemia , unspecified Is this a current diagnosis for this admission?: Yes Plan: Continue home dose statin. (6) Depression Qualifiers: Depression Type: reactive depression Qualified Code(s): F32.9 - Major depressive disorder, single episode, unspecified Is this a current diagnosis for this admission?: Yes Plan: Continue home dose BuSpar and Prozac. She denies suicidal and homicidal ideation. (7) Epistaxis, recurrent Is this a current diagnosis for this admission?: Yes Plan: Patient reports frequent spontaneous epistaxis. She also complains of right maxillary facial pressure with intermittent ear discomfort. She denies sore throat, postnasal drip, ear pain. She denies history of sinusitis. CT of the sinuses revealed diffuse inflammatory changes throughout the para nasal sinuses with mucous membrane thickening narrowing the right maxillary sinus outlet and occlusion of the maxillary sinus outlet on the left side. ENT was consulted; appreciate their evaluation recommendations. Continue Flonase. [place] to bedside for comfort. Currently receiving steroids for COPD exacerbation. Recommend outpatient ENT follow-up. (8) Leukocytosis Is this a current diagnosis for this admission?: Yes Plan: Patient with WBC of 6.0 on admission and trending up to 14.0 today. Multifactorial secondary to possible pneumonia and steroid therapy. Cultures and antibiotics as above. (9) DNR (do not resuscitate) Is this a current diagnosis for this admission?: Yes - Time Time Spent with patient: 25-34 minutes Medications reviewed and adjusted accordingly: Yes Anticipated discharge: Home
[2017-11-29] MEDS: AMOXICILLIN TR/POT CLAVULANATE 500-125 MG TAB PO SCH ×2 (14:35→23:02)
[2017-11-29] MEDS: FLUTICASONE NASAL SPRAY 50 MCG/SPRY 120 SPRAY/16 GM NAREB SCH (14:37)
[2017-11-29] MEDS: ACETAMINOPHEN 325 MG TABLET PO PRN (20:08)
[2017-11-29] MEDS: LORATADINE 10 MG TABLET PO SCH (23:02)
[2017-11-29] MEDS: ATORVASTATIN CALCIUM 20 MG TABLET PO SCH (23:02)
[2017-11-29] MEDS: MONTELUKAST SODIUM 10 MG TABLET PO SCH (23:03)
[2017-11-29] MEDS: PHARMACY COMMUNICATION ORDER MC SCH (23:04)
[2017-11-30] MEDS: IPRATROPIUM/ALBUTEROL 0.5-2.5 MG/3 ML AMPUL NEB SCH ×4 (02:06→20:04)
[2017-11-30 05:09] LABS: HEMOGLOBIN 12.5 g/dL (12.0-15.5); MEAN CORPUSCULAR HEMOGLOBIN 30.6 pg (27.0-33.4); MEAN CORPUSCULAR HGB CONC 33.8 g/dL (32.0-36.0); MEAN CORPUSCULAR VOLUME 90 fl (80-97); PLATELET COUNT 405 10^3/uL (150-450); RED CELL DISTRIBUTION WIDTH 14.3 % (11.5-14.0); WHITE BLOOD COUNT 15.4 10^3/uL (4.0-10.5)
[2017-11-30 05:31] LABS: ANION GAP 13 (5-19); BLOOD UREA NITROGEN 22 mg/dL (7-20); CALCIUM 9.7 mg/dL (8.4-10.2); CARBON DIOXIDE 27 mmol/L (22-30); CHLORIDE 104 mmol/L (98-107); GLUCOSE 132 mg/dL (75-110); POTASSIUM 4.6 mmol/L (3.6-5.0); SODIUM 143.8 mmol/L (137-145)
[2017-11-30] MEDS: METHYLPREDNISOLONE INJ 40 MG/1 ML SDV IV SCH ×3 (06:06→22:23)
[2017-11-30] MEDS: AMOXICILLIN TR/POT CLAVULANATE 500-125 MG TAB PO SCH ×3 (06:06→22:21)
[2017-11-30] MEDS: BUSPIRONE HCL 10 MG TABLET PO SCH ×3 (06:06→22:21)
[2017-11-30] MEDS: BUDESONIDE NEB 0.5 MG/2 ML AMPUL NEB SCH (08:24)
[2017-11-30] MEDS: ENOXAPARIN SODIUM INJ 40 MG/0.4 ML DISP.SYRIN SUBCUT SCH (09:20)
[2017-11-30] MEDS: GUAIFENESIN 600 MG TABLET.SA PO SCH ×2 (09:21→22:22)
[2017-11-30] MEDS: FLUOXETINE HCL 20 MG CAPSULE PO SCH (09:21)
[2017-11-30] MEDS: NICOTINE 21 MG/24 HR PATCH.TD24 TD SCH (09:21)
[2017-11-30] MEDS: DONEPEZIL HCL 5 MG TABLET PO SCH (09:21)
[2017-11-30] MEDS: SUCRALFATE 1 GM TABLET PO SCH ×4 (09:21→22:21)
[2017-11-30] MEDS: LIDOCAINE 5% (700 MG) TRANSDERMAL ADH..PATCH TP SCH (09:22)
[2017-11-30] MEDS: OXYCODONE HCL IR 5 MG TABLET PO PRN (09:24)
[2017-11-30] MEDS: TIOTROPIUM BROMIDE DPI 5 CAP/KIT (18 MCG/CAP) IH SCH (10:40)
[2017-11-30] MEDS: SALMETEROL XINAFOATE DISKUS 50 MCG/1 DOSE 28 DOSE IH SCH ×2 (10:40→22:22)
--- NOTE | 2017-11-30 13:45 | PDOC PROGRESS REPORT ---
Subjective Progress Note for:: 11/30/17 Subjective:: Continues somewhat better Reason For Visit: COPD EXACERBATION Physical Exam Vital Signs: Temp Pulse Resp BP Pulse Ox 98.6 F 84 17 113/72 96 11/30/17 11:05 11/30/17 11:05 11/30/17 11:05 11/30/17 11:05 11/30/17 11:05 Pulse Oximeter Continuous Start: 11/22/17 08: 35 Freq: RTQ4 Status: Active Document 11/30/17 08:24 HCR (Rec: 11/30/17 10:03 HCR [email or web address]) Pulse Oximetry Assessment Oxygen Saturation (92-100) 96 Oxygen Flow Rate (L/min) 2 Oxygen Delivery Method Nasal Cannula Equipment Usage Equipment in Use Continuous SpO2 Machine # 11 Intake & Output 11/29/17 11/30/17 12/01/17 06:59 06:59 06:59 Intake Total 1095 814 Balance 1095 814 Weight 72.9 kg 71.9 kg General appearance: PRESENT: no acute distress, cooperative, disheveled, well- developed, well-nourished Head exam: PRESENT: atraumatic, normocephalic Eye exam: PRESENT: conjunctiva pale, EOMI, PERRLA. ABSENT: nystagmus, periorbital swelling, scleral icterus Mouth exam: PRESENT: moist, neck supple, tongue midline Neck exam: ABSENT: carotid bruit, JVD, lymphadenopathy, thyromegaly, tracheal deviation, tracheostomy Respiratory exam: PRESENT: decreased breath sounds, prolonged expiratory phas, rhonchi, symmetrical, unlabored, wheezes. ABSENT: rales, retraction, stridor, tachypnea Cardiovascular exam: PRESENT: RRR, +S1, +S2 Pulses: PRESENT: normal radial pulses GI/Abdominal exam: PRESENT: normal bowel sounds, soft Extremities exam: PRESENT: full ROM. ABSENT: calf tenderness, clubbing, joint swelling Musculoskeletal exam: PRESENT: full ROM. ABSENT: deformity, dislocation Neurological exam: PRESENT: alert, awake Psychiatric exam: PRESENT: normal mood Skin exam: PRESENT: dry, warm Results Laboratory Results: 11/30/17 03:55 11/30/17 03:55 11/30/17 11/30/17 03:55 03:55 WBC 15.4 H RBC 4.10 Hgb 12.5 Hct 37.0 MCV 90 MCH 30.6 MCHC 33.8 RDW 14.3 H Plt Count 405 Sodium 143.8 Potassium 4.6 Chloride 104 Carbon Dioxide 27 Anion Gap 13 BUN 22 H Creatinine 0.41 L Est GFR ( Amer) > 60 Est GFR (Non-Af Amer) > 60 Glucose 132 H Calcium 9.7 11/22/17 11/22/17 11/22/17 06:49 12:35 18:05 Troponin I < 0.012 < 0.012 < 0.012 NT-Pro-B Natriuret Pep 11/28/17 06:04 Troponin I NT-Pro-B Natriuret Pep 45 Impressions: Chest X-Ray 11/22/17 00:00 IMPRESSION: NO ACUTE RADIOGRAPHIC FINDING IN THE CHEST. Modified Barium Swallow 11/23/17 00:00 IMPRESSION: NO EVIDENCE OF PENETRATION OR ASPIRATION.PLEASE SEE SPEECH PATHOLOGIST REPORT FOR OTHER FINDINGS AND RECOMMENDATIONS. Sinuses CT 11/25/17 00:00 IMPRESSION: Diffuse inflammatory changes throughout the paranasal sinuses as above. No nasal masses. No aggressive bony destruction nasal cavity worrisome for tumor or aggressive infection. Chest CT 11/27/17 10:20 IMPRESSION: DIFFUSE GROUND-GLASS OPACITIES SCATTERED THROUGHOUT BOTH LUNGS. NONSPECIFIC APPEARANCE. POSSIBLE ETIOLOGIES INCLUDE INFLAMMATION, INFECTION, OR PULMONARY EDEMA. Assessment & Plan - Diagnosis (1) COPD with acute exacerbation Is this a current diagnosis for this admission?: Yes Plan: Improving (2) HTN (hypertension) Qualifiers: Hypertension type: essential hypertension Qualified Code(s): I10 - Essential (primary) hypertension Is this a current diagnosis for this admission?: Yes Plan: Stop smoking (3) Tobacco abuse Is this a current diagnosis for this admission?: Yes (4) Tobacco abuse counseling Is this a current diagnosis for this admission?: Yes Plan: Discussed the risk and dangers associated with continued tobacco useDiscussed the risk and dangers associated with continued tobacco use (5) Epistaxis, recurrent Is this a current diagnosis for this admission?: Yes Plan: Review consult ENT
[2017-11-30] MEDS: FLUTICASONE NASAL SPRAY 50 MCG/SPRY 120 SPRAY/16 GM NAREB SCH (14:38)
--- NOTE | 2017-11-30 17:28 | PDOC PROGRESS REPORT ---
Subjective Progress Note for:: 11/30/17 Subjective:: AMELIE EDMOND is a 67 y.o. female with a PMH of COPD (50 pack yrs), HTN, HLD, depression and anxiety. She presented to the ED 11/21/2017 with a severe COPD exacerbation. Patient seen this morning on rounds, she is sitting upright in bed on supplemental oxygen. The patient reports that she feels much better this morning. She denies shortness of breath, dyspnea, cough, or chest pain. The previous provider reports she had an extensive conversation with the patient about the importance of wearing BiPAP at night, the patient reports she did not wear it overnight. The patient states she has not been wearing BiPAP, only nasal cannula. The patient appears very comfortable, she is not tachypneic or exhibiting symptoms of respiratory distress. Upon assessment she does have mild wheezing in the bilateral lung bases. Reason For Visit: COPD EXACERBATION Physical Exam Vital Signs: Temp Pulse Resp BP Pulse Ox 98.4 F 77 18 113/52 L 92 11/30/17 15:09 11/30/17 15:09 11/30/17 15:09 11/30/17 15:09 11/30/17 15:09 Pulse Oximeter Continuous Start: 11/22/17 08: 35 Freq: RTQ4 Status: Active Document 11/30/17 14:00 [facility] (Rec: 11/30/17 14:33 [facility] [email or web address]) Pulse Oximetry Assessment Oxygen Saturation (92-100) 98 Oxygen Flow Rate (L/min) 2 Oxygen Delivery Method Nasal Cannula Equipment Usage Equipment in Use Continuous SpO2 Machine # 11 Intake & Output 11/29/17 11/30/17 12/01/17 06:59 06:59 06:59 Intake Total 1095 814 621 Balance 1095 814 621 Weight 72.9 kg 71.9 kg General appearance: PRESENT: no acute distress Eye exam: PRESENT: conjunctiva pink, PERRLA Mouth exam: PRESENT: moist Neck exam: PRESENT: full ROM Respiratory exam: PRESENT: symmetrical, unlabored, wheezes - MILD. BILATERAL BASES Cardiovascular exam: PRESENT: +S1, +S2 Pulses: PRESENT: normal radial pulses, normal dorsalis pedis pul GI/Abdominal exam: PRESENT: normal bowel sounds, soft. ABSENT: tenderness Rectal exam: PRESENT: deferred Extremities exam: PRESENT: full ROM Musculoskeletal exam: PRESENT: ambulatory, full ROM Neurological exam: PRESENT: alert, awake, oriented to person, oriented to place , oriented to time, oriented to situation Psychiatric exam: PRESENT: appropriate affect Skin exam: PRESENT: dry, intact Results Laboratory Results: 11/30/17 03:55 11/30/17 03:55 11/30/17 11/30/17 03:55 03:55 WBC 15.4 H RBC 4.10 Hgb 12.5 Hct 37.0 MCV 90 MCH 30.6 MCHC 33.8 RDW 14.3 H Plt Count 405 Sodium 143.8 Potassium 4.6 Chloride 104 Carbon Dioxide 27 Anion Gap 13 BUN 22 H Creatinine 0.41 L Est GFR ( Amer) > 60 Est GFR (Non-Af Amer) > 60 Glucose 132 H Calcium 9.7 11/22/17 11/22/17 11/22/17 06:49 12:35 18:05 Troponin I < 0.012 < 0.012 < 0.012 NT-Pro-B Natriuret Pep 11/28/17 06:04 Troponin I NT-Pro-B Natriuret Pep 45 Impressions: Chest X-Ray 11/22/17 00:00 IMPRESSION: NO ACUTE RADIOGRAPHIC FINDING IN THE CHEST. Modified Barium Swallow 11/23/17 00:00 IMPRESSION: NO EVIDENCE OF PENETRATION OR ASPIRATION.PLEASE SEE SPEECH PATHOLOGIST REPORT FOR OTHER FINDINGS AND RECOMMENDATIONS. Sinuses CT 11/25/17 00:00 IMPRESSION: Diffuse inflammatory changes throughout the paranasal sinuses as above. No nasal masses. No aggressive bony destruction nasal cavity worrisome for tumor or aggressive infection. Chest CT 11/27/17 10:20 IMPRESSION: DIFFUSE GROUND-GLASS OPACITIES SCATTERED THROUGHOUT BOTH LUNGS. NONSPECIFIC APPEARANCE. POSSIBLE ETIOLOGIES INCLUDE INFLAMMATION, INFECTION, OR PULMONARY EDEMA. Status: Imported from PACS Assessment & Plan - Diagnosis (1) Acute and chronic respiratory failure Qualifiers: Respiratory failure complication: hypoxia and hypercapnia Qualified Code(s) : J96.21 - Acute and chronic respiratory failure with hypoxia; J96.22 - Acute and chronic respiratory failure with hypercapnia; J96.22 - Acute and chronic respiratory failure with hypercapnia; J96.22 - Acute and chronic respiratory failure with hypercapnia Is this a current diagnosis for this admission?: Yes Plan: Improving. Mild wheezing heard in B/L lung bases. She remains hypoxic on room air. Secondary to COPD exacerbation stemming from upper respiratory infection The patient states she recently traveled back and forth to [place], she states she started feeling ill during her trip back to [place] The patient endorses a 50 pack year smoking history, but denies ever being diagnosed with COPD. Initial CXR demonstrates mild pulmonary vascular congestion, no other pathology Initial ABG shows hypercapnic respiratory acidosis with metabolic compensation Modified barium swallow negative for aspiration PFT pending Blood cultures no growth to date. Sputum culture with normal yun. D-dimer negative Chest CT reveals groundglass opacities throughout bilateral lungs suggestive of inflammation, infection, edema ProBNP 45 Admit to medical floor with continuous cardiac telemetry Supplemental oxygen via nasal cannula for SPO2> 88% BIPAP as needed Duoneb q4h ISABEL Xopenex q4h PRN Solumedrol 30mg q6h Empiric antibiotic therapy for acute bronchitis in the COPD patient - 3 days of doxycycline PO, followed by 5 days Levaquin IV given the severity of her symptoms. Noting that Levaquin provides appropriate gram-positive, gram-negative , and atypical coverage, the patient continues to have persistent dyspnea, sputum production, chest CT questionable for pneumonia, and an increasing white count despite weaning of steroids. Therefore, will place the patient on Augmentin for beta-lactam properties and upper respiratory symptoms with CT of the sinuses demonstrating inflammation (perhaps there is some chronic sinusitis present). Continue Mucinex, Tessalon Perles, Singulair, Claritin. Incentive pirometry and flutter valve Pulmonary has been consulted (2) COPD with acute exacerbation Is this a current diagnosis for this admission?: Yes Plan: The patient endorses a 98-tpmh-vaoy history but denies known diagnosis of COPD. Plan as above (3) HTN (hypertension) Qualifiers: Hypertension type: essential hypertension Qualified Code(s): I10 - Essential (primary) hypertension Is this a current diagnosis for this admission?: Yes Plan: Patient endorses a history of HTN but she is not on anti-hypertensives at home Patient has remained relatively NORMOtensive while inpatient PRN IV Hydralazine for SBP > 170 (4) HLD (hyperlipidemia) Qualifiers: Hyperlipidemia type: unspecified Qualified Code(s): E78.5 - Hyperlipidemia , unspecified Is this a current diagnosis for this admission?: Yes Plan: Patient endorses a history of HLD Continue home dose statin (5) Depression Qualifiers: Depression Type: reactive depression Qualified Code(s): F32.9 - Major depressive disorder, single episode, unspecified Is this a current diagnosis for this admission?: Yes Plan: The patient endorses a history of depression Continue home dose Buspar and Prozac (6) DNR (do not resuscitate) Is this a current diagnosis for this admission?: Yes (7) Cough Is this a current diagnosis for this admission?: Yes Plan: Patient c/o persistent productive cough and associated L lateral chest wall pain. +Clear/yellow sputum. Sputum culture: normal yun. Continue Mucinex PO Lidocaine patch to L lateral chest wall for pain Tylenol, tramadol, and oxycodone available for pain control PRN (8) Leukocytosis Qualifiers: Leukocytosis type: unspecified Qualified Code(s): D72.829 - Elevated white blood cell count, unspecified Is this a current diagnosis for this admission?: Yes Plan: Patient with WBC 6.0 on admission trending up to 15.4 today Multifactorial secondary to possible pneumonia and continued steroid therapy Patient remains afebrile and nontoxic-appearing Cultures and antibiotics as above (9) Epistaxis, recurrent Is this a current diagnosis for this admission?: Yes Plan: Patient reports frequent spontaneous epistaxis, also complains of right maxillary facial pressure with intermittent ear discomfort. Denies history of sinusitis CT of the sinuses revealed diffuse inflammatory changes throughout the paranasal sinuses with mucous membrane thickening narrowing the right maxillary sinus outlet and occlusion of the maxillary sinus outlet on the left side ENT was consulted, recommend Flonase and [place] spray to bedside for comfort Currently receiving steroids for COPD exacerbation Recommend outpatient ENT follow-up - Time Time Spent with patient: 15-24 minutes Medications reviewed and adjusted accordingly: Yes Anticipated discharge: Home Within: within 48 hours - Inpatient Certification Based on my medical assessment, after consideration of the patient's comorbidities, presenting symptoms, or acuity I expect that the services needed warrant INPATIENT care.: Yes I certify that my determination is in accordance with my understanding of Medicare's requirements for reasonable and necessary INPATIENT services [42 CFR 412.3e].: Yes Medical Necessity: Risk of Complication if Not Cared For in Hospital - Plan Summary Plan Summary: If the patient continues to improve, she will likely be discharged home within 48 hours
[2017-11-30] MEDS: ATORVASTATIN CALCIUM 20 MG TABLET PO SCH (22:21)
[2017-11-30] MEDS: MONTELUKAST SODIUM 10 MG TABLET PO SCH (22:22)
[2017-11-30] MEDS: LORATADINE 10 MG TABLET PO SCH (22:22)
[2017-11-30] MEDS: PHARMACY COMMUNICATION ORDER MC SCH (22:29)
[2017-12-01] MEDS: IPRATROPIUM/ALBUTEROL 0.5-2.5 MG/3 ML AMPUL NEB SCH ×3 (01:51→13:52)
[2017-12-01 05:49] LABS: HEMATOCRIT 36.9 % (36.0-47.0); HEMOGLOBIN 12.5 g/dL (12.0-15.5); MEAN CORPUSCULAR HEMOGLOBIN 30.8 pg (27.0-33.4); MEAN CORPUSCULAR HGB CONC 33.8 g/dL (32.0-36.0); MEAN CORPUSCULAR VOLUME 91 fl (80-97); PLATELET COUNT 416 10^3/uL (150-450); RED BLOOD COUNT 4.05 10^6/uL (3.72-5.28); RED CELL DISTRIBUTION WIDTH 14.1 % (11.5-14.0); WHITE BLOOD COUNT 15.8 10^3/uL (4.0-10.5)
[2017-12-01] MEDS: METHYLPREDNISOLONE INJ 40 MG/1 ML SDV IV SCH ×2 (05:55→13:27)
[2017-12-01] MEDS: BUSPIRONE HCL 10 MG TABLET PO SCH ×2 (05:55→13:27)
[2017-12-01] MEDS: AMOXICILLIN TR/POT CLAVULANATE 500-125 MG TAB PO SCH ×2 (05:58→13:27)
[2017-12-01 06:08] LABS: ANION GAP 12 (5-19); BLOOD UREA NITROGEN 17 mg/dL (7-20); CALCIUM 9.8 mg/dL (8.4-10.2); CARBON DIOXIDE 25 mmol/L (22-30); CHLORIDE 105 mmol/L (98-107); GLUCOSE 121 mg/dL (75-110); PHOSPHORUS 4.6 mg/dL (2.5-4.5); POTASSIUM 4.5 mmol/L (3.6-5.0); SODIUM 142.1 mmol/L (137-145)
[2017-12-01] MEDS ORDERED: OXYCODONE HCL IR 5 MG TABLET PO PRN (06:16)
[2017-12-01] MEDS: SUCRALFATE 1 GM TABLET PO SCH ×3 (08:35→15:11)
[2017-12-01] MEDS: ENOXAPARIN SODIUM INJ 40 MG/0.4 ML DISP.SYRIN SUBCUT SCH (09:56)
[2017-12-01] MEDS: NICOTINE 21 MG/24 HR PATCH.TD24 TD SCH (09:56)
[2017-12-01] MEDS: SALMETEROL XINAFOATE DISKUS 50 MCG/1 DOSE 28 DOSE IH SCH (09:57)
[2017-12-01] MEDS: FLUOXETINE HCL 20 MG CAPSULE PO SCH (09:57)
[2017-12-01] MEDS: DONEPEZIL HCL 5 MG TABLET PO SCH (09:57)
[2017-12-01] MEDS: GUAIFENESIN 600 MG TABLET.SA PO SCH (09:57)
[2017-12-01] MEDS: LIDOCAINE 5% (700 MG) TRANSDERMAL ADH..PATCH TP SCH (09:59)
[2017-12-01] MEDS: TIOTROPIUM BROMIDE DPI 5 CAP/KIT (18 MCG/CAP) IH SCH (09:59)
--- NOTE | 2017-12-01 14:26 | PDOC PROGRESS REPORT ---
Subjective Progress Note for:: 12/01/17 Subjective:: Significantly improved over the last 24 hours Reason For Visit: COPD EXACERBATION Physical Exam Vital Signs: Temp Pulse Resp BP Pulse Ox 98.2 F 81 16 122/64 95 12/01/17 03:30 12/01/17 13:51 12/01/17 13:51 12/01/17 03:30 12/01/17 13:51 Pulse Oximeter Continuous Start: 11/22/17 08: 35 Freq: RTQ4 Status: Active Document 12/01/17 12:43 [facility] [place] (Rec: 12/01/17 12:44 [facility] [place] [email or web address]) Pulse Oximetry Assessment Oxygen Saturation (92-100) 98 Oxygen Flow Rate (L/min) 2 Oxygen Delivery Method Nasal Cannula Fraction of Inspired Oxygen (FIO2) 28 Equipment Usage Equipment in Use Continuous SpO2 Machine # N 11 Intake & Output 11/30/17 12/01/17 12/02/17 06:59 06:59 06:59 Intake Total 814 621 Balance 814 621 Weight 71.9 kg 71.8 kg General appearance: PRESENT: no acute distress, cooperative, disheveled Head exam: PRESENT: atraumatic, normocephalic Eye exam: PRESENT: conjunctiva pale, EOMI, PERRLA. ABSENT: nystagmus, periorbital swelling, scleral icterus Mouth exam: PRESENT: moist, neck supple, tongue midline Neck exam: ABSENT: carotid bruit, JVD, lymphadenopathy, thyromegaly, tracheal deviation, tracheostomy Respiratory exam: PRESENT: decreased breath sounds, prolonged expiratory phas, rhonchi, unlabored. ABSENT: rales, retraction, stridor, tachypnea, wheezes Cardiovascular exam: PRESENT: RRR, +S1, +S2 Pulses: PRESENT: normal radial pulses GI/Abdominal exam: PRESENT: normal bowel sounds, soft Extremities exam: PRESENT: full ROM. ABSENT: calf tenderness, clubbing, joint swelling Musculoskeletal exam: PRESENT: full ROM. ABSENT: deformity, dislocation Neurological exam: PRESENT: alert, awake Psychiatric exam: PRESENT: normal mood Skin exam: PRESENT: dry, warm Results Laboratory Results: 12/01/17 05:15 12/01/17 05:15 12/01/17 12/01/17 05:15 05:15 WBC 15.8 H RBC 4.05 Hgb 12.5 Hct 36.9 MCV 91 MCH 30.8 MCHC 33.8 RDW 14.1 H Plt Count 416 Sodium 142.1 Potassium 4.5 Chloride 105 Carbon Dioxide 25 Anion Gap 12 BUN 17 Creatinine 0.42 L Est GFR ( Amer) > 60 Est GFR (Non-Af Amer) > 60 Glucose 121 H Calcium 9.8 Phosphorus 4.6 H Magnesium 2.1 11/22/17 11/22/17 11/22/17 06:49 12:35 18:05 Troponin I < 0.012 < 0.012 < 0.012 NT-Pro-B Natriuret Pep 11/28/17 06:04 Troponin I NT-Pro-B Natriuret Pep 45 Impressions: Chest X-Ray 11/22/17 00:00 IMPRESSION: NO ACUTE RADIOGRAPHIC FINDING IN THE CHEST. Modified Barium Swallow 11/23/17 00:00 IMPRESSION: NO EVIDENCE OF PENETRATION OR ASPIRATION.PLEASE SEE SPEECH PATHOLOGIST REPORT FOR OTHER FINDINGS AND RECOMMENDATIONS. Sinuses CT 11/25/17 00:00 IMPRESSION: Diffuse inflammatory changes throughout the paranasal sinuses as above. No nasal masses. No aggressive bony destruction nasal cavity worrisome for tumor or aggressive infection. Chest CT 11/27/17 10:20 IMPRESSION: DIFFUSE GROUND-GLASS OPACITIES SCATTERED THROUGHOUT BOTH LUNGS. NONSPECIFIC APPEARANCE. POSSIBLE ETIOLOGIES INCLUDE INFLAMMATION, INFECTION, OR PULMONARY EDEMA. Assessment & Plan - Diagnosis (1) COPD with acute exacerbation Is this a current diagnosis for this admission?: Yes Plan: Very near her probable baseline (2) HTN (hypertension) Qualifiers: Hypertension type: essential hypertension Qualified Code(s): I10 - Essential (primary) hypertension Is this a current diagnosis for this admission?: Yes Plan: Stop smoking (3) Tobacco abuse Is this a current diagnosis for this admission?: Yes (4) Tobacco abuse counseling Is this a current diagnosis for this admission?: Yes Plan: Discussed the risk and dangers associated with continued tobacco useDiscussed the risk and dangers associated with continued tobacco use (5) Epistaxis, recurrent Is this a current diagnosis for this admission?: Yes Plan: Review consult ENT
[2017-12-01] MEDS ORDERED: ONDANSETRON 4 MG TAB.RAPDIS PO PRN (15:00)
[2017-12-01] MEDS: FLUTICASONE NASAL SPRAY 50 MCG/SPRY 120 SPRAY/16 GM NAREB SCH (15:11)
[2017-12-01 17:32] VITALS: BP 122/64
--- NOTE | 2017-12-05 07:52 | PDOC DISCHARGE SUMMARY ---
General - Admit/Disc Date/PCP Admission Date/Primary Care Provider: 11/21/17 14:44 LISA STARK MD Discharge Date: 12/01/17 - Discharge Diagnosis (1) Acute and chronic respiratory failure Is this a current diagnosis for this admission?: Yes (2) COPD with acute exacerbation Is this a current diagnosis for this admission?: Yes (3) HTN (hypertension) Is this a current diagnosis for this admission?: Yes (4) HLD (hyperlipidemia) Is this a current diagnosis for this admission?: Yes (5) Depression Is this a current diagnosis for this admission?: Yes (6) DNR (do not resuscitate) Is this a current diagnosis for this admission?: Yes (7) Cough Is this a current diagnosis for this admission?: Yes (8) Leukocytosis Is this a current diagnosis for this admission?: Yes (9) Epistaxis, recurrent Is this a current diagnosis for this admission?: Yes - Additional Information Resuscitation Status: Do Not Resuscitate Discharge Diet: As Tolerated Discharge Activity: Activity As Tolerated Prescriptions: Amox Tr/Potassium Clavulanate [Augmentin "500" Tablet] 1 tab PO Q8 7 Days #21 tablet Ipratropium/Albuterol Sulfate [Duoneb 3 ml Ampul] 3 ml NEB RTQ6 #10 vial.neb Loratadine [Claritin 10 mg Tablet] 10 mg PO QHS #21 tablet Tiotropium [place] [Spiriva] 2 puff IH DAILY #30 cap.w.dev Home Medications: Quetiapine Fumarate [Seroquel 100 mg Tablet] 200 mg PO QHS 09/15/14 Diazepam [Valium 5 mg Tablet] 10 mg PO BIDP PRN 07/09/15 Fluoxetine HCl [Prozac] 80 mg PO DAILY 09/17/17 Gabapentin 400 mg PO Q8 09/17/17 Sucralfate [Carafate 1 gm Tablet] 1 gm PO ACHS 09/17/17 Albuterol Sulfate [Ventolin HFA MDI 18 GM] 2 puff IH Q6HP PRN 11/21/17 Buspirone HCl [Buspar 15 mg Tablet] 15 mg PO Q8 11/21/17 Butalb/Acetaminophen/Caffeine [Fioricet 50-300-40 mg Capsule] 1 cap PO Q4HP PRN 11/21/17 Donepezil HCl [Aricept] 10 mg PO DAILY 11/21/17 Fluticasone Propionate [Flonase Nasal [place] 50 Mcg/[place] 16 gm] 2 sprays NAREB DAILY 11/21/17 Fluticasone/Salmeterol [Advair 250-50 Diskus 28 dose] 1 inh IH Q12 11/21/17 Meloxicam [Mobic] 15 mg PO DAILY 11/21/17 Montelukast Sodium [Singulair 10 mg Tablet] 10 mg PO QHS 11/21/17 Rosuvastatin Calcium [Crestor 10 mg Tablet] 10 mg PO QHS 11/21/17 Amox Tr/Potassium Clavulanate [Augmentin "500" Tablet] 1 tab PO Q8 7 Days #21 tablet 12/01/17 Ipratropium/Albuterol Sulfate [Duoneb 3 ml Ampul] 3 ml NEB RTQ6 #10 vial.neb Loratadine [Claritin 10 mg Tablet] 10 mg PO QHS #21 tablet 12/01/17 Tiotropium [place] [Spiriva] 2 puff IH DAILY #30 cap.w.dev 12/01/17 History of Present Illness History of Present Illness: AMELIE EDMOND is a 67 year old female who presented to the emergency department with a chief complaint of SOB for approximately 1 week. She states she recently traveled back and forth to [facility] for a , and she began to feel ill during her return trip to [place]. The patient describes her symptoms as difficulty breathing, dizziness, a persistent cough, and endorses a TMAX of 103 48hrs ago. She is experiencing a DENNEY and R&L lateral rib pain when coughing. She initially went to her PMD 2 days ago for her symptoms, and she was prescribed Augmentin, Medrol dose pack, Advair and albuterol. The patient states that her symptoms continued to get worse, despite her medication therapy, so she came to the hospital. PMH includes COPD (no home O2), HTN, HLD, osteoporosis, CVA with residual mild RUE weakness Her VS upon arrival were as follows BP 103/60 P 64 RR 26 T 99.1 SPO2 94% on RA. While in the emergency department, the patient received multiple nebulizer treatments, PO prednisone, and pain medication for her rib pain associated with coughing. Her CXR showed mild pulmonary vascular congestion, no other pathology. ABG (following nebulizer treatments) demonstrated respiratory acidosis with metabolic compensation. Other lab work was mostly unremarkable, except for mild HYPERnatremia (Na 149). EKG shows NSR, no signs of acute infarct or ischemia. Upon assessment, the patient was resting in bed on supplemental oxygen via nasal cannula. Audible wheezing could be heard from the doorway, however, the patient did not appear to be in any distress. Wheezing could be heard in all lung robles, no evidence of rhonci or other adventitious lung sounds. The patient endorsed feeling SOB and dizzy, even while at rest. She also endorsed lateral chest wall/rib pain associated with coughing, which was producing thick yellow mucous. She denied fever, chills, or neck or back pain. Given the severity of the patient's symptoms, plan to admit to the hospitalist service. Hospital Course Hospital Course: The patient presented with shortness of breath, wheezing, persistent non- productive cough, and L lateral chest wall pain. The patient endorses a 50 pack year smoking history, but denies ever being diagnosed with COPD. The patient states she recently traveled back and forth to [place], she states she started feeling ill during her trip back to [place]. Her initial CXR demonstrated mild pulmonary vascular congestion, no other pathology, initial ABG showed hypercapnic respiratory acidosis with metabolic compensation. Chest CT was done to r/o PE, it only revealed groundglass opacities throughout bilateral lungs suggestive of inflammation, infection, and edema - NEGATIVE for PE. Pulmonary was consulted, Dr. Childress suggested a Modified barium swallow test to evaluate for microaspiration, it was negative. The patient was admitted to the medical floor with continuous cardiac telemetry. She required supplemental oxygen via nasal cannula for SPO2> 88% but refused to wear BIPAP, despite a great deal of counseling from medical staff. Her COPD was treated with DuoNebs, IV SoluMedrol, and Mucinex. She was given Tessalon pearls for her persistent cough, Claritin for allergic rhinitis, and Singulair to manage her asthma symptoms. The patient endorsed a great deal of L lateral chest wall pain associated with coughing, for which she was given a Lidocaine patch (of note, cardiac workup of chest pain was negative - EKG showed NSR, serial cardiac enzymes negative). The patient was empirically placed on antibiotics for acute bronchitis in the COPD patient. She received 3 days of doxycycline PO, followed by 5 days Levaquin IV given the severity of her symptoms. Noting that Levaquin provides appropriate gram-positive, gram- negative, and atypical coverage. Following that, the patient was placed on Augmentin for beta-lactam properties and upper respiratory symptoms with CT of the sinuses demonstrating inflammation (perhaps there is some chronic sinusitis present). Her blood cultures and sputum cultures from admission were negative. While at [facility], the patient experienced a nose bleed. She reported a history of frequent spontaneous epistaxis, also complained of right maxillary facial pressure with intermittent ear discomfort. CT of the sinuses revealed diffuse inflammatory changes throughout the paranasal sinuses with mucous membrane thickening narrowing the right maxillary sinus outlet and occlusion of the maxillary sinus outlet on the left side. ENT was consulted, they recommended Flonase and [place] spray to bedside for comfort. After 10 days in the hospital, the patient was deemed safe for discharge. She was weaned off of supplemental oxygen and her respiratory symptoms had resolved. The patient was easily able to ambulate around the unit without becoming hypoxic. Extensive smoking cessation counseling was offered, the patient stated she would make every attempt to quit. Additionally, she was scheduled for a follow up appointment with Dr. Childress to continue outpatient management of her COPD. Discharge planning arranged for her to receive a home nebulizer and the patient was sent home with a prescription for Albuterol/ Atrovent DuoNeb. Additionally, she was given prescriptions for Augmentin to complete her antibiotic treatment, Spiriva for her COPD and Claritin for her seasonal rhinitis. Discharge instructions were thoroughly explained to the patient, she stated complete understanding. Physical Exam Vital Signs: Temp Pulse Resp BP Pulse Ox 98.4 F 81 12 122/64 94 12/01/17 17:43 12/01/17 17:43 12/01/17 17:43 12/01/17 17:43 12/01/17 17:43 Pulse Oximeter Continuous Start: 11/22/17 08: 35 Freq: RTQ4 Status: Discharge Document 12/01/17 16:29 TPO (Rec: 12/01/17 16:30 TPO [email or web address]) Pulse Oximetry Assessment Oxygen Saturation (92-100) 94 Oxygen Flow Rate (L/min) 2 Oxygen Delivery Method Nasal Cannula Fraction of Inspired Oxygen (FIO2) 28 Equipment Usage Equipment in Use Continuous SpO2 Machine # 11 Results Laboratory Results: 12/01/17 05:15 12/01/17 05:15 11/22/17 11/22/17 11/22/17 06:49 12:35 18:05 Troponin I < 0.012 < 0.012 < 0.012 NT-Pro-B Natriuret Pep 11/28/17 06:04 Troponin I NT-Pro-B Natriuret Pep 45 Impressions: Chest X-Ray 11/22/17 00:00 IMPRESSION: NO ACUTE RADIOGRAPHIC FINDING IN THE CHEST. Modified Barium Swallow 11/23/17 00:00 IMPRESSION: NO EVIDENCE OF PENETRATION OR ASPIRATION.PLEASE SEE SPEECH PATHOLOGIST REPORT FOR OTHER FINDINGS AND RECOMMENDATIONS. Sinuses CT 11/25/17 00:00 IMPRESSION: Diffuse inflammatory changes throughout the paranasal sinuses as above. No nasal masses. No aggressive bony destruction nasal cavity worrisome for tumor or aggressive infection. Chest CT 11/27/17 10:20 IMPRESSION: DIFFUSE GROUND-GLASS OPACITIES SCATTERED THROUGHOUT BOTH LUNGS. NONSPECIFIC APPEARANCE. POSSIBLE ETIOLOGIES INCLUDE INFLAMMATION, INFECTION, OR PULMONARY EDEMA. Status: Imported from PACS Qualifiers - * PATIENT BEING DISCHARGED WITH ANY OF THE FOLLOWING DIAGNOSIS: No Plan Discharge Plan: discharge home with follow up to pulmonology and primary care physician Time Spent: Less than 30 Minutes
== END 2017-12-01 18:00 | disposition home or self-care (01) | DRG 189 ==
LOC: ER 09:09 → EH 14:44 → 5 16:30
PROVIDERS: ADMIT Internal Medicine; ATTEND Internal Medicine
DX: J96.21 Acute and chronic respiratory failure with hypoxia (principal); J44.1 Chronic obstructive pulmonary disease with (acute) exacerbation; J44.0 Chronic obstructive pulmonary disease with (acute) lower respiratory infection; E87.0 Hyperosmolality and hypernatremia; E87.4 Mixed disorder of acid-base balance; J96.22 Acute and chronic respiratory failure with hypercapnia; Z66 Do not resuscitate; E78.00 Pure hypercholesterolemia, unspecified; I10 Essential (primary) hypertension; K21.9 Gastro-esophageal reflux disease without esophagitis; G44.89 Other headache syndrome; M79.7 Fibromyalgia; J34.89 Other specified disorders of nose and nasal sinuses; R04.0 Epistaxis; M19.90 Unspecified osteoarthritis, unspecified site; F41.8 Other specified anxiety disorders; F17.210 Nicotine dependence, cigarettes, uncomplicated; Z86.73 Personal history of transient ischemic attack (TIA), and cerebral infarction without residual deficits; Z71.6 Tobacco abuse counseling
CPT/HCPCS: 36415; 36600; 70486; 71045; 71250; 74230; 80048; 80053; 81001; 82550; 82803; 82962; 83735; 83880; 84100; 84484; 85025; 85027; 85379; 86603; 87040; 87070; 87205; 87804; 93005; 93010; 94640; 94660; 94668; 94762; 94799; 96361; 96374; 96375; 99291; G8996-GN; G8997-GN; G8998-GN; J1170; J1650; J1885; J1956; J2270; J2550; J2920; J2930; J3490; J7030; J7060; J7512; J7620; S0119

== ENCOUNTER → 2018-02-21 | Outpatient (CLI) | payer MEDICARE, MEDICAID ==
[2018-02-21 14:36] LABS: ARTERIAL BLOOD BASE EXCESS -1.3 mmol/L; ARTERIAL BLOOD H2CO3 1.09 mmol/L (1.05-1.35); ARTERIAL BLOOD HCO3 22.8 mmol/L (20-26); ARTERIAL BLOOD O2 SATURATION 97.4 % (94-98); ARTERIAL BLOOD PCO2 36.2 mmHg (35-45); ARTERIAL BLOOD PH 7.42 (7.35-7.45); ARTERIAL BLOOD PO2 94.6 mmHg (80-100)
[2018-02-21 14:37] LABS: ARTERIAL BLOOD FIO2 ROOM AIR
--- NOTE | 2018-02-21 14:59 | RADIOLOGY REPORT (SQ) ---
EXAM DESCRIPTION: CT CHEST WITHOUT COMPLETED DATE/TIME: 02/21/2018 1:41 pm REASON FOR STUDY: DYSPNEA (R06.00) R06.00 DYSPNEA, UNSPECIFIED COMPARISON: CT chest 04/04/2013, 04/29/2013, 12/14/2013, 11/29/2017 TECHNIQUE: CT scan performed of the chest without intravenous contrast. Images reviewed with lung, soft tissue and bone windows. Reconstructed coronal and sagittal MPR images reviewed. All images st ored on PACS. All CT scanners at this facility use dose modulation, iterative reconstruction, and/or weight based d osing when appropriate to reduce radiation dose to as low as reasonably achievable (ALARA). [facility]: Dose Right [facility]: CareDose [facility]: Dose Right [facility]: Teradose 4D [facility]: Xlumena RADIATION DOSE: CT Rad equipment meets quality standard of care and radiation dose reduction techniq ues were employed. CTDIvol: 7.7 mGy. DLP: 262 mGy-cm. mGy. LIMITATIONS: No technical limitations. FINDINGS: LUNGS AND PLEURA: Patchy bibasilar atelectasis is present. No pleural effusions. No pneumothorax. No worrisome pulmonary nodules. No enlarged airspaces worri some for obstructive disease. HILAR AND MEDIASTINAL STRUCTURES: No identified masses or abnormal nodes. No obvious aneurysm. HEART AND VASCULAR STRUCTURES: No aneurysm. No pericardial effusion. UPPER ABDOMEN: 2.4 cm low-attenuation cyst left upper pole kidney. Surgical raul over the greater curvature of the stomach THYROID AND OTHER SOFT TISSUES: No masses. No adenopathy. BONES: No significant finding. HARDWARE: None in the chest. OTHER: No other significant findings. IMPRESSION: Bandlike bibasilar atelectasis. Otherwise unremarkable study. TECHNICAL DOCUMENTATION: JOB ID: [id number] Quality ID # [id number]: Final reports with documentation of one or more dose reduction techniques (e.g., Au tomated exposure control, adjustment of the mA and/or kV according to patient size, use of iterative reconstruction technique) 2010 [employer]- All Rights Reserved Reading location - IP/workstation name: [email or web address]
[2018-02-22 13:38] LABS: ANTICHROMATIN AB <0.2 AI (0.0-0.9); CENTROMERE B AB <0.2 AI (0.0-0.9); JO-1 ANTIBODY (ANACOMP) <0.2 AI (0.0-0.9); RNP AB 0.2 AI (0.0-0.9); SCLERODERMA-70 ANTIBODIES 0.3 AI (0.0-0.9); SJOGREN'S ANTI-SS-B AB <0.2 AI (0.0-0.9); SJOGREN'S SS-A ANTIBODY 0.2 AI (0.0-0.9); SMITH AB ANA <0.2 AI (0.0-0.9)
[2018-02-22 14:58] LABS: DNA DOUBLE STRAND ANTIBODY ANA <1 IU/mL (0-9)
[2018-02-22 17:37] LABS: CYTOPLASMIC (C-ANCA) <1:20 titer (Neg:<1:20)
[2018-02-23 12:38] LABS: M001-IGE PENICILLIUM CHRYSOGEN <0.10 kU/L (Class 0); M002-IGE CLADOSPORIUM HERBARUM <0.10 kU/L (Class 0); M003-IGE ASPERGILLUS FUMIGATUS <0.10 kU/L (Class 0); M004-IGE MUCOR RACEMOSUS <0.10 kU/L (Class 0); M005-IGE CANDIDA ALBICANS <0.10 kU/L (Class 0); M006-IGE ALTERNARIA ALTERNATA <0.10 kU/L (Class 0); M009-IGE FUSARIUM PROLIFERATUM <0.10 kU/L (Class 0); M012-IGE AUREOBASIDI PULLULANS <0.10 kU/L (Class 0); M013-IGE PHOMA BETAE <0.10 kU/L (Class 0); M014-IGE EPICOCCUM PURPURASCEN <0.10 kU/L (Class 0)
[2018-02-23 18:00] LABS: ATYPICAL PANCA <1:20 titer (Neg:<1:20); PERINUCLEAR (P-ANCA) <1:20 titer (Neg:<1:20)
[2018-02-23 18:02] LABS: M010-IGE STEMPHYLIUM HERBARUM <0.10 kU/L (Class 0)
== END ==
LOC: RAD 13:21
PROVIDERS: ATTEND Physician Assistant
DX: J30.9 Allergic rhinitis, unspecified (principal); R06.00 Dyspnea, unspecified; R94.2 Abnormal results of pulmonary function studies
CPT/HCPCS: 36415; 36600; 71250; 82785; 82803; 86003; 86021; 86225; 86235; 86430

== ENCOUNTER → 2018-04-01 | Outpatient (CLI) | payer MEDICARE, MEDICAID ==
--- NOTE | 2018-04-01 10:43 | RADIOLOGY REPORT (SQ) ---
EXAM DESCRIPTION: CHEST 2 VIEWS COMPLETED DATE/TIME: 04/01/2018 10:24 am REASON FOR STUDY: DYSPNEA COMPARISON: 03/08/2015 EXAM PARAMETERS: NUMBER OF VIEWS: two views TECHNIQUE: Digital Frontal and Lateral radiographic views of the chest acquired. RADIATION DOSE: NA LIMITATIONS: none FINDINGS: LUNGS AND PLEURA: No opacities, masses or pneumothorax. No pleural effusion. MEDIASTINUM AND HILAR STRUCTURES: No masses or contour abnormalities. HEART AND VASCULAR STRUCTURES: Heart normal size. No evidence for failure. BONES: No acute findings. HARDWARE: None in the chest. OTHER: No other significant finding. IMPRESSION: NO ACUTE RADIOGRAPHIC FINDING IN THE CHEST. TECHNICAL DOCUMENTATION: JOB ID: [id number] [employer]- All Rights Reserved Reading location - IP/workstation name: [email or web address]
--- NOTE | 2018-04-01 11:57 | RADIOLOGY REPORT (SQ) ---
EXAM DESCRIPTION: NM LUNG VENT/PERF SCAN COMPLETED DATE/TIME: 04/01/2018 11:43 am REASON FOR STUDY: DYSPNEA R06.00 DYSPNEA, UNSPECIFIED COMPARISON: Chest x-ray dated 04/01/2018. RADIONUCLIDE AND DOSE: 5.41 millicuries TC-99m MAA Intravenous. (An initial dose of 5.24 mCi infilt rated). 32.3 millicuries TC-99m DTPA Inhaled aerosol TECHNIQUE: Eight views of the lungs acquired post ventilation of DTPA aerosol. Eight matching views of the lungs acquired following injection of MAA. LIMITATIONS: None. FINDINGS: VENTILATION: Symmetric and homogeneous distribution of DTPA aerosol during ventilatory pha se. No significant areas of photopenia. PERFUSION: Perfusion images with normal homogenous activity and no wedge-shaped or segmental defects. No ventilation-perfusion mismatches. OTHER: No other significant finding. IMPRESSION: NORMAL VENTILATION-PERFUSION LUNG SCAN. NEGATIVE FOR PULMONARY EMBOLI. TECHNICAL DOCUMENTATION: JOB ID: [id number] [employer]- All Rights Reserved Reading location - IP/workstation name: [email or web address]
== END ==
LOC: RAD 10:09
PROVIDERS: ATTEND Physician Assistant
DX: R06.00 Dyspnea, unspecified (principal)
CPT/HCPCS: 71046; 78582; A9540; A9567; Q9969

== ENCOUNTER → 2018-04-15 | Outpatient (CLI) | payer MEDICARE, MEDICAID ==
[2018-04-15 08:58] LABS: ABSOLUTE BASOPHILS # (AUTO) 0.1 10^3/uL (0.0-0.2); ABSOLUTE EOSINOPHILS # (AUTO) 0.1 10^3/uL (0.0-0.6); ABSOLUTE LYMPHOCYTES (AUTO) 1.9 10^3/uL (0.5-4.7); ABSOLUTE MONOCYTES (AUTO) 0.4 10^3/uL (0.1-1.4); ABSOLUTE NEUT (AUTO) 5.4 10^3/uL (1.7-8.2); BASOPHILS % (AUTO) 0.7 % (0-2); EOSINOPHILS % (AUTO) 0.8 % (0-6); HEMATOCRIT 36.6 % (36.0-47.0); HEMOGLOBIN 12.5 g/dL (12.0-15.5); LYMPHOCYTES % (AUTO) 24.5 % (13-45); MEAN CORPUSCULAR HGB CONC 34.1 g/dL (32.0-36.0); MEAN CORPUSCULAR VOLUME 88 fl (80-97); PLATELET COUNT 290 10^3/uL (150-450); RED BLOOD COUNT 4.16 10^6/uL (3.72-5.28); RED CELL DISTRIBUTION WIDTH 13.9 % (11.5-14.0); TOTAL CELLS COUNTED % (AUTO) 100 %; WHITE BLOOD COUNT 7.9 10^3/uL (4.0-10.5)
[2018-04-15 09:12] LABS: ALANINE AMINOTRANSFERASE 10 U/L (9-52); ALBUMIN 4.2 g/dL (3.5-5.0); ALKALINE PHOSPHATASE 112 U/L (38-126); ANION GAP 14 (5-19); ASPARTATE AMINO TRANSFERASE 17 U/L (14-36); BILIRUBIN,DIRECT 0.2 mg/dL (0.0-0.4); BILIRUBIN,TOTAL 0.3 mg/dL (0.2-1.3); BLOOD UREA NITROGEN 8 mg/dL (7-20); C-REACTIVE PROTEIN 21.4 mg/L (<10.0); CALCIUM 9.8 mg/dL (8.4-10.2); CARBON DIOXIDE 21 mmol/L (22-30); CHLORIDE 109 mmol/L (98-107); CREATINE KINASE 41 U/L (30-135); GLUCOSE 117 mg/dL (75-110); POTASSIUM 4.2 mmol/L (3.6-5.0); SODIUM 143.6 mmol/L (137-145); TOTAL PROTEIN 7.7 g/dL (6.3-8.2)
== END ==
LOC: LAB 08:30
PROVIDERS: ATTEND Internal Medicine
DX: D53.9 Nutritional anemia, unspecified (principal); R10.10 Upper abdominal pain, unspecified; R50.9 Fever, unspecified; E89.0 Postprocedural hypothyroidism; B33.0 Epidemic myalgia
CPT/HCPCS: 36415; 80053; 82550; 84443; 85025; 86140

== ENCOUNTER → 2018-04-21 | Outpatient (CLI) | payer MEDICARE, MEDICAID ==
[~2018-04-21] MED LIST changes: +AMINOPHYLLINE INJ/PF 250 MG/10 ML SDV IV ONE; -CHONDR SU A NA/HYALUR INTRAOC KIT (SURGICARE) ONE; -EPINEPHRINE INJ/PF 1 MG/1 ML AMPULE ONE; -KETOROLAC TROMETHAMINE 0.45% 4 DROP/0.4 ML DROPERETTE OD PRN; -LIDOCAINE 1% INJ-PF (10 MG/ML) 30 ML SDV ONE; +REGADENOSON INJ 0.4 MG/5 ML DISP.SYRIN IV ONE; -TOBRAMYCIN SULFATE/DEXAMETH OPH OINTMENT 3.5 GM ONE
--- NOTE | 2018-04-21 19:46 | DRAGON STRESS TEST REPORT ---
INTRAVENOUS LEXISCAN CARDIOLITE STRESS TEST USING SINGLE PHOTON EMMISION COMPUTERIZED TOMOGRAPHIC. DATE OF PROCEDURE: April 21, 2018, INDICATION : Dyspnea CARDIAC RISK FACTORS: Hypertension, dyslipidemia RESTING EKG: Sinus rhythm, no baseline ST-T wave changes noted STRESS EKG: No significant ST segment changes noted with LexiScan bolus REASON FOR TERMINATION: Protocol. PROCEDURE REPORT: Baseline heart rate 69 beats per minute with blood pressure of 138/70. Patient had no significant complaints. Patient was bolused with Lexiscan 0.4 mg intravenously followed by saline bolus. Heart rate at 2 minutes post bolus 94 with a blood pressure of 159/73. 3 minutes post bolus heart rate 89 with blood pressure of 159/68. No significant EKG changes were noted. Patient had no significant complaints during the procedure or postprocedure. CONCLUSIONS: Normal EKG and hemodynamic response to IV LexiScan. NUCLEAR DATA: At rest the patient was given 11.67 millicuries of technetium 99 sestamibi injected intravenously. As per protocol rest gated SPECT images were obtained. On day of stress test, the patient was given intravenous LexiScan at a dose of 0.4 mg in 5 mL intravenously, followed by flush with normal saline. Subsequently the stress dose of 34.2 millicuries of technetium 99 sestamibi was injected intravenously. As per protocol stress gated images were obtained. NUCLEAR INTERPRETATION: Both raw and processed data were used for interpretation. Visual, qualitative, computer-generated quantitative data was used. There was good myocardial uptake of technetium compound. Motion artifact and soft tissue attenuations were noted. Increased visceral uptake was noted. No definitive areas of transient perfusion defect noted, No definitive areas of fixed perfusion defect or scars noted. EKG gated imaging showed LV EF at 54 %, rest and stress gated EF similar visually. T. I D. ratio was 0.98. Lung heart ratio noted to be within normal limits 0.29. No significant extracardiac and abnormal radiotracer activities were noted. RV free wall uptake was noted to be WNL. IMPRESSION: Also refer to comments under nuclear interpretation. Also test results needs to be interpreted in the context of pretest probability. 1. No definitive areas of transient perfusion defect noted. 2. There is no definitive scintigraphic evidence of myocardial infarction/scar. 3. EKG gated imaging shows left ventricular ejection fraction of approx. 54 %. 4. Clinical correlation requested as worse disease and or balanced ischemia could be missed. In approximately 10% of the cases Lexiscan may not cause adequate vasodilatory stress. RECOMMENDATIONS: Aggressive risk factor modification and medical management. Further evaluation may be needed if continued symptoms or other high risk indicators are noted on clinical evaluation. Close cardiology follow-up is also recommended. Clinical correlation with echocardiogram derived ejection fraction. Inability to exercise by itself can lead to increased cardiovascular event risks. Consider cardiology consultation and or follow-up if clinically indicated. I am available for cardiology evaluation and consultation if requested by the hide or skin buffer, unless patient already has a barrel lathe operator inside. Dr. Vu An. MRCP Board certified in cardiology and sleep medicine. Board certified in nuclear cardiology, adult echocardiography. OPAL
== END ==
LOC: RAD 08:23
PROVIDERS: ATTEND Internal Medicine Cardiovascular Disease
DX: R06.09 Other forms of dyspnea (principal)
CPT/HCPCS: 93017; 78452; A9500; J2785; J0280; Q9969

== ENCOUNTER → 2018-04-29 | Outpatient (CLI) | payer MEDICARE, MEDICAID ==
--- NOTE | 2018-04-29 14:39 | RADIOLOGY REPORT (SQ) ---
EXAM DESCRIPTION: MRI HEAD COMBO COMPLETED DATE/TIME: 04/29/2018 1:29 pm REASON FOR STUDY: OTALGIA (H92.09) H92.09 OTALGIA, UNSPECIFIED EAR COMPARISON: CT dated 09/27/2015. MR dated 07/11/2013. TECHNIQUE: Multiplanar imaging includes non-contrasted T1, T2, FLAIR, diffusion with ADC map and pos t gadolinium contrast sequences. Additional thin slice images with and without gadolinium contrast a cquired in the posterior fossa. Images stored on PACS. CONTRAST TYPE AND DOSE: 15 mL Dotarem. RENAL FUNCTION: GFR > 60. LIMITATIONS: None. FINDINGS: ANATOMY: No anomalies. Normal vascular flow voids. Pituitary fossa normal. CSF SPACES: Normal in size and contour. CEREBRUM: Sulci and gyri normal in size and contour. Normal white matter signal on FLAIR imaging. N o hemorrhage. No edema, masses or mass effect. No enhancing lesions. POSTERIOR FOSSA: No signal alteration. No hemorrhage. No edema, masses or mass effect. Internal [place] tory canals, cerebello-pontine angles, mastoids normal. No enhancing lesions. Detailed imaging of the 5th, 7th, and 8th nerves and [place] within normal limits. DIFFUSION IMAGING: Negative for acute or sub-acute infarction. ORBITS: No masses. Globes normal. PARANASAL SINUSES: No fluid levels. Mucosa normal. OTHER: No other significant finding. IMPRESSION: NORMAL MRI OF THE BRAIN AND POSTERIOR FOSSA WITHOUT AND WITH INTRAVENOUS GADOLINIUM CONT RAST. TECHNICAL DOCUMENTATION: JOB ID: [id number] [employer]- All Rights Reserved Reading location - IP/workstation name: [email or web address]
== END ==
LOC: RAD 12:07
PROVIDERS: ATTEND Internal Medicine
DX: H92.09 Otalgia, unspecified ear (principal)
CPT/HCPCS: 70553; A9576

== ENCOUNTER 2018-05-31 14:52 | Emergency (ER) | payer MEDICARE, MEDICAID ==
[2018-05-31] MEDS ORDERED: MAG HYDROX/AL HYDROX/SIMETH SUSP 30 ML UDCUP PO ONE (15:56)
[2018-05-31] MEDS ORDERED: METOCLOPRAMIDE HCL ORAL SOLN 10 MG/10 ML UDCUP PO ONE (15:56)
[2018-05-31] MEDS ORDERED: LIDOCAINE 2% VISCOUS SOLN 20 ML UDCUP PO ONE (15:56)
[2018-05-31 16:26] LABS: APPEARANCE,URINE SLIGHTLY-CLOUDY; BILIRUBIN,URINE NEGATIVE (NEGATIVE); COLOR,URINE AMBER; GLUCOSE, URINE NEGATIVE (NEGATIVE); KETONES,URINE NEGATIVE (NEGATIVE); LEUKOCYTE ESTERASE,URINE LARGE (NEGATIVE); NITRITE,URINE POSITIVE (NEGATIVE); PROTEIN,URINE NEGATIVE (NEGATIVE); URINE SPECIFIC GRAVITY 1.009
--- NOTE | 2018-05-31 18:58 | ER Document Report ---
ED Medical Screen (RME) - General Chief Complaint: Abdominal Pain Stated Complaint: ABDOMINAL PAIN, BACK PAIN Time Seen by Provider: 05/31/18 15:49 TRAVEL OUTSIDE OF THE [place] IN LAST 30 DAYS: No - Related Data Allergies/Adverse Reactions: No Known Allergies Allergy (Verified 05/31/18 15:53) Past Medical History - Social History Chew tobacco use (# tins/day): No Frequency of alcohol use: None Drug Abuse: None Family history: None - Past Medical History Cardiac Medical History: Reports: Hx Hypercholesterolemia Denies: Hx Atrial Fibrillation, Hx Congestive Heart Failure, Hx Coronary Artery Disease, Hx Heart Attack, Hx Hypertension, Hx Peripheral Vascular Disease , Hx Pulmonary Embolism, Hx Heart Murmur Pulmonary Medical History: Reports: Hx Asthma, Hx COPD Denies: Hx Bronchitis, Hx Pneumonia, Hx Respiratory Failure, Hx Sleep Apnea, Hx Tuberculosis Neurological Medical History: 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 Denies: Hx Seizures Renal/ Medical History: Reports: Hx Kidney Stones. Denies: Hx End Stage Renal Disease, Hx Peritoneal Dialysis Malignancy Medical History: Denies: Hx Lung Cancer GI Medical History: Reports: Hx Gastroesophageal Reflux Disease. Denies: Hx Crohn's Disease, Hx Hepatitis, Hx Hiatal Hernia, Hx Irritable Bowel, Hx Liver Failure, Hx Pancreatitis, Hx Ulcer Musculoskeltal Medical History: Reports Hx Arthritis - back, Reports Hx Fibromyalgia, Denies Hx Muscular Dystrophy Skin Medical History: Denies Hx Psoriasis Psychiatric Medical History: Reports: Hx Anxiety, Hx Depression Denies: Hx Bipolar Disorder, Hx Post Traumatic Stress Disorder, Hx Schizophrenia Traumatic Medical History: Denies: Hx Fractures, Hx Pneumothorax, Hx Traumatic Brain Injury Infectious Medical History: Denies: Hx Hepatitis, Hx VRE Past Surgical History: Reports: Hx Cholecystectomy, Hx Genitourinary Surgery - bladder tack, Hx Gynecologic Surgery - hysterectomy, Hx Hysterectomy, Hx Tonsillectomy, Hx Tubal Ligation. Denies: Hx Appendectomy, Hx Bowel Surgery, Hx Section, Hx Colostomy, Hx Coronary Artery Bypass Graft, Hx Gastric Bypass Surgery, Hx Herniorrhaphy, Hx Mastectomy, Hx Open Heart Surgery, Hx Pacemaker - Immunizations Immunizations up to date: Yes Hx Diphtheria, Pertussis, Tetanus Vaccination: No History of Influenza Vaccine for 04/2017 - 09/2017 Season: Refused Physical Exam - Vital signs Vitals: Temp Pulse Resp BP Pulse Ox 97.6 F 101 H 18 144/65 H 94 05/31/18 14:58 05/31/18 14:58 05/31/18 14:58 05/31/18 14:58 05/31/18 14:58 Course - Re-evaluation Re-evalutation: 05/31/18 18:58 67-year-old female that presented for evaluation of abdominal pain and shoulder pain. Has a history of reflux in the past for which she has been evaluated. Her is concerned that this is another example of her reflux pains. She does note that it seems to radiate up into her shoulder, chest. Believe this could represent a more serious process as such we will obtain cardiac markers however will address her pain utilizing a GI cocktail. I have seen and performed a rapid medical screening examination on this patient. This patient will require further evaluation and disposition determination by a secondary provider. - Vital Signs Vital signs: Temp Pulse Resp BP Pulse Ox 97.6 F 101 H 18 144/65 H 94 05/31/18 14:58 05/31/18 14:58 05/31/18 14:58 05/31/18 14:58 05/31/18 14:58 - Laboratory Laboratory results interpreted by me: 05/31/18 16:05 Urine Blood MODERATE H Urine Nitrite POSITIVE H Urine Urobilinogen 4.0 H Ur Leukocyte Esterase LARGE H Doctor's Discharge - Discharge Referrals: DAVIDSON QUIROZ MD [Primary Care Provider] - Follow up as needed
[2018-05-31] MEDS ORDERED: MORPHINE SULFATE 10 MG/ML INJ IV ONE ×2 (20:10→20:50)
--- NOTE | 2018-05-31 20:12 | ER Document Report ---
ED GI/ - General Chief Complaint: Abdominal Pain Stated Complaint: ABDOMINAL PAIN, BACK PAIN Time Seen by Provider: 05/31/18 15:49 Notes: Patient is a 67-year-old female that comes to the emergency department for chief complaint of abdominal pain and flank pain. She states that she has been having upper abdominal pain for some days, she had an endoscopy and colonoscopy within the past week, she was prescribed medications for H. pylori afterwards but she has not started taking this yet. She states that today she started to have much worse lower abdominal pain and also flank pain. She denies vomiting. She denies fever. She states she does have chest pain but indicates her upper abdomen when asked where the location of her chest pain is. Past medical history of COPD, as needed home oxygen, she has had a hysterectomy, cholecystectomy, and bladder sling. She denies any other medical history including cardiopulmonary history. She is a former smoker. TRAVEL OUTSIDE OF THE [place] IN LAST 30 DAYS: No - Related Data Allergies/Adverse Reactions: No Known Allergies Allergy (Verified 05/31/18 15:53) Past Medical History - General Information source: Patient - Social History Smoking Status: Former Smoker Chew tobacco use (# tins/day): No Frequency of alcohol use: None Drug Abuse: None Lives with: Family Family History: CAD, DM, Malignancy - BREAST CANCER - 2 SISTERS Patient has suicidal ideation: No Patient has homicidal ideation: No - Past Medical History Cardiac Medical History: Reports: Hx Hypercholesterolemia Denies: Hx Atrial Fibrillation, Hx Congestive Heart Failure, Hx Coronary Artery Disease, Hx Heart Attack, Hx Hypertension, Hx Peripheral Vascular Disease , Hx Pulmonary Embolism, Hx Heart Murmur Pulmonary Medical History: Reports: Hx Asthma, Hx COPD Denies: Hx Bronchitis, Hx Pneumonia, Hx Respiratory Failure, Hx Sleep Apnea, Hx Tuberculosis Neurological Medical History: 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 Denies: Hx Seizures Renal/ Medical History: Reports: Hx Kidney Stones. Denies: Hx End Stage Renal Disease, Hx Peritoneal Dialysis Malignancy Medical History: Denies: Hx Lung Cancer GI Medical History: Reports: Hx Gastroesophageal Reflux Disease. Denies: Hx Crohn's Disease, Hx Hepatitis, Hx Hiatal Hernia, Hx Irritable Bowel, Hx Liver Failure, Hx Pancreatitis, Hx Ulcer Musculoskeletal Medical History: Reports Hx Arthritis - back, Reports Hx Fibromyalgia, Denies Hx Muscular Dystrophy Skin Medical History: Denies Hx Psoriasis Psychiatric Medical History: Reports: Hx Anxiety, Hx Depression Denies: Hx Bipolar Disorder, Hx Post Traumatic Stress Disorder, Hx Schizophrenia Traumatic Medical History: Denies: Hx Fractures, Hx Pneumothorax, Hx Traumatic Brain Injury Infectious Medical History: Denies: Hx Hepatitis, Hx VRE Past Surgical History: Reports: Hx Cholecystectomy, Hx Genitourinary Surgery - bladder tack, Hx Gynecologic Surgery - hysterectomy, Hx Hysterectomy, Hx Tonsillectomy, Hx Tubal Ligation. Denies: Hx Appendectomy, Hx Bowel Surgery, Hx Section, Hx Colostomy, Hx Coronary Artery Bypass Graft, Hx Gastric Bypass Surgery, Hx Herniorrhaphy, Hx Mastectomy, Hx Open Heart Surgery, Hx Pacemaker - Immunizations Immunizations up to date: Yes Hx Diphtheria, Pertussis, Tetanus Vaccination: No Hx Pneumococcal Vaccination: 06/17/11 Review of Systems - Review of Systems Constitutional: No symptoms reported EENT: No symptoms reported Cardiovascular: No symptoms reported Respiratory: No symptoms reported Gastrointestinal: See HPI Genitourinary: See HPI Female Genitourinary: No symptoms reported Musculoskeletal: No symptoms reported Skin: No symptoms reported Hematologic/Lymphatic: No symptoms reported Neurological/Psychological: No symptoms reported Physical Exam - Vital signs Vitals: Temp Pulse Resp BP Pulse Ox 97.6 F 101 H 18 144/65 H 94 05/31/18 14:58 05/31/18 14:58 05/31/18 14:58 05/31/18 14:58 05/31/18 14:58 - Notes Notes: GENERAL: Uncomfortable, appears to be in some pain HEAD: Normocephalic, atraumatic. EYES: Pupils equal, round, and reactive to light. Extraocular movements intact. ENT: Oral mucosa moist, tongue midline. Oropharynx unremarkable. Airway patent. Nares patent, no nasal septal hematoma, TM's intact. NECK: Full range of motion. Supple. Trachea midline. LUNGS: Clear to auscultation bilaterally, no wheezes, rales, or rhonchi. No respiratory distress. HEART: Regular rate and rhythm. No murmur ABDOMEN: Generalized lower and upper abdominal tenderness without specific area of tenderness or guarding. No abnormal distention. Normal bowel sounds. GENITOURINARY: Deferred EXTREMITIES: Moves all 4 extremities spontaneously. No edema, normal radial and dorsalis pedis pulses bilaterally. No cyanosis. BACK: no cervical, thoracic, lumbar midline tenderness. No saddle anesthesia, normal distal neurovascular exam. NEUROLOGICAL: Alert and oriented x3. Normal speech. [cranial nerves II through XII grossly intact]. PSYCH: Normal affect, normal mood. SKIN: Warm, dry, normal turgor. No rashes or lesions noted. Course - Re-evaluation Re-evalutation: Patient uncomfortable on initial evaluation. She has generalized abdominal pain , no noted specific CVA tenderness although she does complain of flank pain. CBC unremarkable, chemistry unremarkable, urinalysis shows an obvious infection with positive nitrates, white blood cells. On reevaluation patient still having some pain but is much more comfortable. She states she has had kidney stones in the past. Discussed with patient. Because of her pain level, age, history of kidney stones, urinary tract infection we will perform CAT scan to rule out infected kidney stone or other acute abdominal abnormality. CT unremarkable without any acute findings. Patient asymptomatic on reevaluation. She has had a dose of Rocephin. Suspect urinary tract infection and kidney infection along with her gastritis diagnosis explain her symptoms. Discussed with patient in detail, discussed treatment, follow-up, and return precautions. Patient states satisfaction and agreement with plan. - Vital Signs Vital signs: Temp Pulse Resp BP Pulse Ox 98.1 F 81 17 125/81 98 05/31/18 23:16 05/31/18 23:16 05/31/18 23:16 05/31/18 23:16 05/31/18 23:16 - Laboratory Result Diagrams: 05/31/18 20:05 05/31/18 20:05 Laboratory results interpreted by me: 05/31/18 05/31/18 05/31/18 16:05 20:05 20:05 RDW 15.7 H Creatinine 0.51 L AST 37 H Total Protein 8.3 H Urine Blood MODERATE H Urine Nitrite POSITIVE H Urine Urobilinogen 4.0 H Ur Leukocyte Esterase LARGE H Discharge - Discharge Clinical Impression: Flank pain Abdominal pain Qualifiers: Abdominal location: generalized Qualified Code(s): R10.84 - Generalized abdominal pain Condition: Stable Disposition: HOME, SELF-CARE Additional Instructions: Your evaluation is consistent with a kidney infection, your CAT scan does not show any concerning findings including no kidney stones. Take the antibiotics as prescribed, take the nausea medication and pain medication only if needed. Recommended [id number] stool softener such as MiraLAX if you do take the pain medication to avoid constipation. Follow-up closely with your range mounter for additional management of H. pylori. Return if you worsen including vomiting, fever, severe worsening pain, or any other concerning or worsening symptoms. Prescriptions: Cephalexin Monohydrate [Keflex 500 mg Capsule] 500 mg PO BID #14 capsule Hydrocodone/Acetaminophen [[place] 5-325 mg Tablet] 1 - 2 tab PO ASDIR #8 tablet Ondansetron [Zofran Odt 4 mg Tablet] 1 - 2 tab PO Q4H PRN #15 tab.rapdis PRN Reason: For Nausea/Vomiting Referrals: DAVIDSON QUIROZ MD [Primary Care Provider] - Follow up as needed
[2018-05-31 20:32] LABS: ABSOLUTE BASOPHILS # (AUTO) 0.1 10^3/uL (0.0-0.2); ABSOLUTE EOSINOPHILS # (AUTO) 0.1 10^3/uL (0.0-0.6); ABSOLUTE LYMPHOCYTES (AUTO) 3.3 10^3/uL (0.5-4.7); ABSOLUTE MONOCYTES (AUTO) 0.6 10^3/uL (0.1-1.4); ABSOLUTE NEUT (AUTO) 6.3 10^3/uL (1.7-8.2); EOSINOPHILS % (AUTO) 1.2 % (0-6); HEMATOCRIT 36.2 % (36.0-47.0); HEMOGLOBIN 12.5 g/dL (12.0-15.5); LYMPHOCYTES % (AUTO) 31.5 % (13-45); MEAN CORPUSCULAR HEMOGLOBIN 30.8 pg (27.0-33.4); MEAN CORPUSCULAR HGB CONC 34.4 g/dL (32.0-36.0); MEAN CORPUSCULAR VOLUME 89 fl (80-97); MONOCYTES % (AUTO) 5.7 % (3-13); PLATELET COUNT 286 10^3/uL (150-450); RED BLOOD COUNT 4.06 10^6/uL (3.72-5.28); RED CELL DISTRIBUTION WIDTH 15.7 % (11.5-14.0); SEGMENTED NEUTROPHILS % (AUTO) 60.6 % (42-78); TOTAL CELLS COUNTED % (AUTO) 100 %; WHITE BLOOD COUNT 10.4 10^3/uL (4.0-10.5)
[2018-05-31 20:45] LABS: ALANINE AMINOTRANSFERASE 29 U/L (9-52); ALBUMIN 4.5 g/dL (3.5-5.0); ALKALINE PHOSPHATASE 118 U/L (38-126); ANION GAP 12 (5-19); ASPARTATE AMINO TRANSFERASE 37 U/L (14-36); BILIRUBIN,TOTAL 0.6 mg/dL (0.2-1.3); BLOOD UREA NITROGEN 12 mg/dL (7-20); CALCIUM 9.8 mg/dL (8.4-10.2); CARBON DIOXIDE 24 mmol/L (22-30); CHLORIDE 106 mmol/L (98-107); GLUCOSE 92 mg/dL (75-110); LIPASE 58.5 U/L (23-300); SODIUM 141.5 mmol/L (137-145); TOTAL PROTEIN 8.3 g/dL (6.3-8.2)
[2018-05-31] MEDS ORDERED: CEFTRIAXONE 1 GM/D5W RTU 1 GM/50 ML RTUPB IV ONE (20:47)
--- NOTE | 2018-05-31 21:55 | RADIOLOGY REPORT (SQ) ---
EXAM DESCRIPTION: CT ABDOMEN WITHOUT IV CONTRAST COMPLETED DATE/TME: 05/31/2018 20:49 CLINICAL HISTORY: 67 years, Female, abd/flank pain, vomiting, UTI; kidney stone? COMPARISON: None. TECHNIQUE: Images stored on PACS. All CT scanners at this facility use dose modulation, iterative reconstruction, and/or weight based dosing when appropriate to reduce radiation dose to as low as reasonably achievable (ALARA). [facility]: Dose Right [facility]: CareDose [facility]: Dose Right [facility]: Teradose 4D [facility]: [employer] LIMITATIONS: None. FINDINGS: No hydronephrosis or urinary stone. There is a small arterial calcification in the right renal sinus. There is a small left renal cyst. There is fatty infiltration of the liver. There are atherosclerotic changes involving the abdominal aorta, but there is no aneurysm. The appendix is mildly prominent, measuring 8 mm in maximal diameter, however, the appendix otherwise appears normal. There is no evidence of appendicitis. This is likely a normal appendix for this patient. There is mild scarring/platelike atelectasis at the lung bases. IMPRESSION: No acute finding. Other findings as described. TECHNICAL DOCUMENTATION: Quality ID # [id number]: Final reports with documentation of one or more dose reduction techniques (e.g., Automated exposure control, adjustment of the mA and/or kV according to patient size, use of iterative reconstruction technique) copyright 2011 [employer]- All Rights Reserved
[2018-05-31] MEDS ORDERED: HYDROCODONE/ACETAMINOPHEN 5-325 MG (6 TAB/ER DISP) PO PRN (22:39)
[2018-05-31] MEDS ORDERED: ONDANSETRON ODT 4 MG TAB (6 TAB/ER DISP) PO PRN (22:39)
[2018-05-31 23:18] VITALS: BP 125/81
--- NOTE | 2018-06-01 07:36 | EKG REPORT ---
SEVERITY:- OTHERWISE NORMAL ECG - SINUS RHYTHM LEFT AXIS DEVIATION : Confirmed by: Paul Frost MD 01-Jun-2018 07:36:32
== END 2018-05-31 23:19 | disposition home or self-care (01) ==
LOC: ER 14:52
DX: R10.84 Generalized abdominal pain (principal); J44.9 Chronic obstructive pulmonary disease, unspecified; E78.00 Pure hypercholesterolemia, unspecified; Z87.891 Personal history of nicotine dependence; Z99.81 Dependence on supplemental oxygen; Z90.710 Acquired absence of both cervix and uterus; Z90.49 Acquired absence of other specified parts of digestive tract; Z87.442 Personal history of urinary calculi
CPT/HCPCS: 93005; 99284; 96375; 96365; 96366; 36415; 87086; 83690; 85025; 80053; 81001; 84484; 76380; 93010; J3490; A9270 ×3; J2270; J0696

== ENCOUNTER → 2018-06-07 | Outpatient (CLI) | payer MEDICARE, MEDICAID ==
--- NOTE | 2018-06-07 14:02 | RADIOLOGY REPORT (SQ) ---
EXAM DESCRIPTION: KNEE LEFT 4 VIEWS COMPLETED DATE/TIME: 06/07/2018 1:38 pm REASON FOR STUDY: POLYARTHRITIS D64.9 ANEMIA, UNSPECIFIED E03.9 HYPOTHYROIDISM, UNSPECIFIED M32.9 SYSTEMIC LUPUS ERYTHEMATOSUS, UNSPECIFIED COMPARISON: None. NUMBER OF VIEWS: Four views. TECHNIQUE: AP, lateral, and both oblique radiographic images acquired of the left knee. LIMITATIONS: None. FINDINGS: MINERALIZATION: Normal. BONES: No acute fracture or dislocation. No worrisome bone lesions. JOINT: No effusion. SOFT TISSUES: No soft tissue swelling. No radio-opaque foreign body. OTHER: No other significant finding. IMPRESSION: NEGATIVE STUDY OF THE LEFT KNEE. NO RADIOGRAPHIC EVIDENCE OF ACUTE INJURY. TECHNICAL DOCUMENTATION: JOB ID: [id number] [employer]- All Rights Reserved Reading location - IP/workstation name: [email or web address]
--- NOTE | 2018-06-07 14:02 | RADIOLOGY REPORT (SQ) ---
EXAM DESCRIPTION: KNEE RIGHT 4 VIEWS COMPLETED DATE/TIME: 06/07/2018 1:38 pm REASON FOR STUDY: POLYARTHRITIS D64.9 ANEMIA, UNSPECIFIED E03.9 HYPOTHYROIDISM, UNSPECIFIED M32.9 SYSTEMIC LUPUS ERYTHEMATOSUS, UNSPECIFIED COMPARISON: None. NUMBER OF VIEWS: Four views. TECHNIQUE: AP, lateral, and both oblique radiographic images acquired of the right knee. LIMITATIONS: None. FINDINGS: MINERALIZATION: Normal. BONES: No acute fracture or dislocation. No worrisome bone lesions. JOINT: No effusion. SOFT TISSUES: No soft tissue swelling. No radio-opaque foreign body. OTHER: No other significant finding. IMPRESSION: NEGATIVE STUDY OF THE RIGHT KNEE. NO RADIOGRAPHIC EVIDENCE OF ACUTE INJURY. TECHNICAL DOCUMENTATION: JOB ID: [id number] [employer]- All Rights Reserved Reading location - IP/workstation name: [email or web address]
--- NOTE | 2018-06-07 14:17 | RADIOLOGY REPORT (SQ) ---
EXAM DESCRIPTION: HAND BILATERAL 3 VIEWS COMPLETED DATE/TIME: 06/07/2018 1:37 pm REASON FOR STUDY: POLYARTHRITIS COMPARISON: None. FINDINGS: Three views left hand: Mild osteopenia. No fracture or bone lesion or carpal malalignmen t. No subluxation or dislocation. Joint spaces are relatively preserved. No erosions. No soft tis belkis swelling. Three views right hand: Mild osteopenia. No fracture or bone lesion or carpal malalignment. No sub luxation or dislocation. Joint spaces are relatively preserved. No erosions. No soft tissue swelli ng. TECHNICAL DOCUMENTATION: JOB ID: [id number] Reading location - IP/workstation name: [email or web address]
[2018-06-07 14:36] LABS: ABSOLUTE EOSINOPHILS # (AUTO) 0.1 10^3/uL (0.0-0.6); ABSOLUTE LYMPHOCYTES (AUTO) 1.8 10^3/uL (0.5-4.7); ABSOLUTE MONOCYTES (AUTO) 0.4 10^3/uL (0.1-1.4); ABSOLUTE NEUT (AUTO) 3.2 10^3/uL (1.7-8.2); BASOPHILS % (AUTO) 0.6 % (0-2); EOSINOPHILS % (AUTO) 1.1 % (0-6); HEMATOCRIT 34.7 % (36.0-47.0); HEMOGLOBIN 11.9 g/dL (12.0-15.5); LYMPHOCYTES % (AUTO) 32.8 % (13-45); MEAN CORPUSCULAR HEMOGLOBIN 30.5 pg (27.0-33.4); MEAN CORPUSCULAR HGB CONC 34.4 g/dL (32.0-36.0); MEAN CORPUSCULAR VOLUME 89 fl (80-97); MONOCYTES % (AUTO) 7.9 % (3-13); PLATELET COUNT 279 10^3/uL (150-450); RED BLOOD COUNT 3.91 10^6/uL (3.72-5.28); RED CELL DISTRIBUTION WIDTH 15.2 % (11.5-14.0); SEGMENTED NEUTROPHILS % (AUTO) 57.6 % (42-78); TOTAL CELLS COUNTED % (AUTO) 100 %; WHITE BLOOD COUNT 5.6 10^3/uL (4.0-10.5)
[2018-06-07 14:42] LABS: C-REACTIVE PROTEIN 20.5 mg/L (<10.0)
== END ==
LOC: OD 13:02
PROVIDERS: ATTEND Internal Medicine
DX: D64.9 Anemia, unspecified (principal); E03.9 Hypothyroidism, unspecified; M32.9 Systemic lupus erythematosus, unspecified; M06.9 Rheumatoid arthritis, unspecified; E55.9 Vitamin D deficiency, unspecified; M13.0 Polyarthritis, unspecified
CPT/HCPCS: 36415; 82306; 82550; 84443; 85025; 86038; 86140; 86430

== ENCOUNTER → 2018-07-16 | Outpatient (CLI) | payer MEDICARE, MEDICAID ==
--- NOTE | 2018-07-16 16:36 | RADIOLOGY REPORT (SQ) ---
EXAM DESCRIPTION: MRI CERVICAL SPINE WITHOUT COMPLETED DATE/TIME: 07/16/2018 3:57 pm REASON FOR STUDY: CERVICAL RADICULOPATHY M54.12 RADICULOPATHY, CERVICAL REGION COMPARISON: None. TECHNIQUE: Sagittal and Axial imaging includes T1, T2, STIR and gradient echo sequences. LIMITATIONS: None. FINDINGS: ALIGNMENT: Normal. VERTEBRAE: Intact. BONE MARROW: Normal. No marrow replacement or reactive changes. DISCS: Normal. No significant abnormal signal or loss of height. HARDWARE: None in the spine. CORD AND BASE OF BRAIN: Normal in size and signal intensity. SOFT TISSUES: No soft tissue masses. C1-C2: No significant spinal stenosis. C2-C3: No significant spinal stenosis or exit foraminal stenosis. C3-C4: No significant spinal stenosis or exit foraminal stenosis. C4-C5: Disc osteophyte complex asymmetric left with mild narrowing of the left exit foramina. C5-C6: Disc osteophyte complex asymmetric left with leftward flattening of the anterior thecal sac. Mild narrowing of the left exit foramina. C6-C7: No significant spinal stenosis or exit foraminal stenosis. C7-T1: No significant spinal stenosis or exit foraminal stenosis. UPPER THORACIC: Incompletely imaged. No significant spinal stenosis or exit foraminal stenosis. OTHER: No other significant finding. IMPRESSION: Mild spondylosis C4-5 C5-6 with mild narrowing of the left exit foramina. TECHNICAL DOCUMENTATION: JOB ID: [id number] [employer]- All Rights Reserved Reading location - IP/workstation name: [email or web address]
== END ==
LOC: RAD 14:20
PROVIDERS: ATTEND Internal Medicine
DX: M54.12 Radiculopathy, cervical region (principal)
CPT/HCPCS: 72141

== ENCOUNTER 2018-08-14 12:29 | Emergency (ER) | payer MEDICARE, MEDICAID ==
--- NOTE | 2018-08-14 13:23 | ER Document Report ---
ED Medical Screen (RME) - General Chief Complaint: Urinary Problem Stated Complaint: LOW ABDOMINAL PAIN, PAINFUL URINATION Time Seen by Provider: 08/14/18 13:17 Primary Care Provider: DAVIDSON QUIROZ MD [Primary Care Provider] - Follow up as needed Mode of Arrival: Ambulatory Information source: Patient Notes: 67-year-old female presents emergency department with complaints of fever, chills, diffuse abdominal pain, dysuria, increased urgency, increased frequency that is been going on for the last couple of days. Patient states that she has been taking Azo without any relief of symptoms. Her last dose of Tylenol was at 11 AM. Abdominal pain is diffuse aching sensation. No radiation. No alleviating or exacerbating factors. She denies any nausea, vomiting, diarrhea, constipation. I have greeted and performed a rapid initial assessment of this patient. A comprehensive ED assessment and evaluation of the patient, analysis of test results and completion of the medical decision making process will be conducted by additional ED providers. PHYSICAL EXAMINATION: GENERAL: Well-appearing. HEAD: Atraumatic, normocephalic. EYES: Pupils equal round extraocular movements intact, conjunctiva are normal. ENT: Nares patent NECK: Normal range of motion LUNGS: No respiratory distress Musculoskeletal: Normal range of motion NEUROLOGICAL: Normal speech, normal gait. PSYCH: Normal mood, normal affect. SKIN: Warm, Dry, normal turgor, no rashes or lesions noted. TRAVEL OUTSIDE OF THE [place] IN LAST 30 DAYS: No - Related Data Allergies/Adverse Reactions: No Known Allergies Allergy (Verified 08/14/18 12:30) Past Medical History - Social History Frequency of alcohol use: None Drug Abuse: None Family history: None - Past Medical History Cardiac Medical History: Reports: Hx Hypercholesterolemia Denies: Hx Atrial Fibrillation, Hx Congestive Heart Failure, Hx Coronary Artery Disease, Hx Heart Attack, Hx Hypertension, Hx Peripheral Vascular Disease, Hx Pulmonary Embolism, Hx Heart Murmur Pulmonary Medical History: Reports: Hx Asthma, Hx COPD Denies: Hx Bronchitis, Hx Pneumonia, Hx Respiratory Failure, Hx Sleep Apnea, Hx Tuberculosis Neurological Medical History: 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 Denies: Hx Seizures Renal/ Medical History: Reports: Hx Kidney Stones. Denies: Hx End Stage Renal Disease, Hx Peritoneal Dialysis Malignancy Medical History: Denies: Hx Lung Cancer GI Medical History: Reports: Hx Gastroesophageal Reflux Disease. Denies: Hx Crohn's Disease, Hx Hepatitis, Hx Hiatal Hernia, Hx Irritable Bowel, Hx Liver F ailure, Hx Pancreatitis, Hx Ulcer Musculoskeltal Medical History: Reports Hx Arthritis - back, Reports Hx Fibromyalgia, Denies Hx Muscular Dystrophy Skin Medical History: Denies Hx Psoriasis Psychiatric Medical History: Reports: Hx Anxiety, Hx Depression Denies: Hx Bipolar Disorder, Hx Post Traumatic Stress Disorder, Hx Sc hizophrenia Traumatic Medical History: Denies: Hx Fractures, Hx Pneumothorax, Hx Traumatic Brain Injury Infectious Medical History: Denies: Hx Hepatitis, Hx VRE Past Surgical History: Reports: Hx Cholecystectomy, Hx Genitourinary Surgery - bladder tack, Hx Gynecologic Surgery - hysterectomy partial, Hx Hysterectomy, Hx Tonsillectomy, Hx Tubal Ligation. Denies: Hx Appendectomy, Hx Bowel Surgery, Hx Section, Hx Colostomy, Hx Coronary Artery Bypass Graft, Hx Gastric Bypass Surgery, Hx Herniorrhaphy, Hx Mastectomy, Hx Open Heart Surgery, Hx Pacemaker - Immunizations Immunizations up to date: Yes Hx Diphtheria, Pertussis, Tetanus Vaccination: No History of Influenza Vaccine for 04/2017 - 09/2017 Season: Refused Physical Exam - Vital signs Vitals: Temp Pulse Resp BP Pulse Ox 98.9 F 78 18 122/69 98 08/14/18 12:50 08/14/18 12:50 08/14/18 12:50 08/14/18 12:50 08/14/18 12:50 Course - Vital Signs Vital signs: Temp Pulse Resp BP Pulse Ox 98.9 F 78 18 122/69 98 08/14/18 12:50 08/14/18 12:50 08/14/18 12:50 08/14/18 12:50 08/14/18 12:50 Doctor's Discharge - Discharge Referrals: DAVIDSON QUIROZ MD [Primary Care Provider] - Follow up as needed
[2018-08-14 14:06] LABS: ABSOLUTE EOSINOPHILS # (AUTO) 0.1 10^3/uL (0.0-0.6); ABSOLUTE LYMPHOCYTES (AUTO) 1.9 10^3/uL (0.5-4.7); ABSOLUTE MONOCYTES (AUTO) 0.5 10^3/uL (0.1-1.4); ABSOLUTE NEUT (AUTO) 5.3 10^3/uL (1.7-8.2); BASOPHILS % (AUTO) 0.6 % (0-2); EOSINOPHILS % (AUTO) 0.7 % (0-6); HEMATOCRIT 37.9 % (36.0-47.0); HEMOGLOBIN 12.8 g/dL (12.0-15.5); LYMPHOCYTES % (AUTO) 24.3 % (13-45); MEAN CORPUSCULAR HEMOGLOBIN 30.2 pg (27.0-33.4); MEAN CORPUSCULAR HGB CONC 33.9 g/dL (32.0-36.0); MEAN CORPUSCULAR VOLUME 89 fl (80-97); MONOCYTES % (AUTO) 6.1 % (3-13); PLATELET COUNT 275 10^3/uL (150-450); RED BLOOD COUNT 4.25 10^6/uL (3.72-5.28); SEGMENTED NEUTROPHILS % (AUTO) 68.3 % (42-78); TOTAL CELLS COUNTED % (AUTO) 100 %; WHITE BLOOD COUNT 7.7 10^3/uL (4.0-10.5)
[2018-08-14 14:14] LABS: AMORPHOUS SEDIMENT,URINE TRACE /HPF; APPEARANCE,URINE SLIGHTLY-CLOUDY; BILIRUBIN,URINE NEGATIVE (NEGATIVE); COLOR,URINE AMBER; GLUCOSE, URINE NEGATIVE (NEGATIVE); KETONES,URINE NEGATIVE (NEGATIVE); LEUKOCYTE ESTERASE,URINE MODERATE (NEGATIVE); NITRITE,URINE NEGATIVE (NEGATIVE); PROTEIN,URINE NEGATIVE (NEGATIVE); URINE SPECIFIC GRAVITY 1.016
[2018-08-14 14:21] LABS: ALANINE AMINOTRANSFERASE 167 U/L (9-52); ALBUMIN 4.4 g/dL (3.5-5.0); ALKALINE PHOSPHATASE 116 U/L (38-126); ANION GAP 9 (5-19); ASPARTATE AMINO TRANSFERASE 306 U/L (14-36); BILIRUBIN,DIRECT 0.2 mg/dL (0.0-0.4); BILIRUBIN,TOTAL 0.4 mg/dL (0.2-1.3); BLOOD UREA NITROGEN 12 mg/dL (7-20); CALCIUM 9.4 mg/dL (8.4-10.2); CARBON DIOXIDE 24 mmol/L (22-30); CHLORIDE 109 mmol/L (98-107); GLUCOSE 79 mg/dL (75-110); LIPASE 104.8 U/L (23-300); SODIUM 142.4 mmol/L (137-145); TOTAL PROTEIN 7.1 g/dL (6.3-8.2)
[2018-08-14] MEDS ORDERED: PHENAZOPYRIDINE HCL 200 MG TABLET PO ONE (14:59)
[2018-08-14] MEDS ORDERED: CEPHALEXIN 500 MG CAPSULE PO ONE (14:59)
--- NOTE | 2018-08-14 15:08 | ER Document Report ---
ED General - General Chief Complaint: Urinary Problem Stated Complaint: LOW ABDOMINAL PAIN, PAINFUL URINATION Time Seen by Provider: 08/14/18 13:17 Primary Care Provider: DAVIDSON QUIROZ MD [Primary Care Provider] - Follow up as needed Mode of Arrival: Ambulatory Notes: Patient is a 67-year-old female presents to the emergency department chief complaints dysuria for the last 2 days. Patient states yesterday she did have a fever T-max 102. States no fever today. Patient is denying any vomiting. States she does have urinary hesitancy. She is denying any vaginal discharge. States she does have some suprapubic tenderness. Patient has a history of a cholecystectomy and hysterectomy. Past medical history: COPD, hyperlipidemia, depression Medications: Seroquel, Singulair, Valium, albuterol, BuSpar, Celebrex, gabapentin, Crestor Allergies: Aspirin Patient patient is denying any trauma to her abdomen, liver disease Or right abdominal or epigastric pain. TRAVEL OUTSIDE OF THE [place] IN LAST 30 DAYS: No - Related Data Allergies/Adverse Reactions: No Known Allergies Allergy (Verified 08/14/18 12:30) Past Medical History - General Information source: Patient - Social History Smoking Status: Current Every Day Smoker Frequency of alcohol use: None Drug Abuse: None Family History: CAD, DM, Malignancy - BREAST CANCER - 2 SISTERS Patient has suicidal ideation: No Patient has homicidal ideation: No - Past Medical History Cardiac Medical History: Reports: Hx Hypercholesterolemia Denies: Hx Atrial Fibrillation, Hx Congestive Heart Failure, Hx Coronary Artery Disease, Hx Heart Attack, Hx Hypertension, Hx Peripheral Vascular Disease, Hx Pulmonary Embolism, Hx Heart Murmur Pulmonary Medical History: Reports: Hx Asthma, Hx COPD Denies: Hx Bronchitis, Hx Pneumonia, Hx Respiratory Failure, Hx Sleep Apnea, Hx Tuberculosis Neurological Medical History: 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 Denies: Hx Seizures Renal/ Medical History: Reports: Hx Kidney Stones. Denies: Hx End Stage Renal Disease, Hx Peritoneal Dialysis Malignancy Medical History: Denies: Hx Lung Cancer GI Medical History: Reports: Hx Gastroesophageal Reflux Disease. Denies: Hx Crohn's Disease, Hx Hepatitis, Hx Hiatal Hernia, Hx Irritable Bowel, Hx Liver Failure, Hx Pancreatitis, Hx Ulcer Musculoskeletal Medical History: Reports Hx Arthritis - back, Reports Hx Fibromyalgia, Denies Hx Muscular Dystrophy Skin Medical History: Denies Hx Psoriasis Psychiatric Medical History: Reports: Hx Anxiety, Hx Depression Denies: Hx Bipolar Disorder, Hx Post Traumatic Stress Disorder, Hx Schizophrenia Traumatic Medical History: Denies: Hx Fractures, Hx Pneumothorax, Hx Traumatic Brain Injury Infectious Medical History: Denies: Hx Hepatitis, Hx VRE Past Surgical History: Reports: Hx Cholecystectomy, Hx Genitourinary Surgery - bladder tack, Hx Gynecologic Surgery - hysterectomy partial, Hx Hysterectomy, Hx Tonsillectomy, Hx Tubal Ligation. Denies: Hx Appendectomy, Hx Bowel Surgery, Hx Section, Hx Colostomy, Hx Coronary Artery Bypass Graft, Hx Gastric Bypass Surgery, Hx Herniorrhaphy, Hx Mastectomy, Hx Open Heart Surgery, Hx Pac emaker - Immunizations Immunizations up to date: Yes Hx Diphtheria, Pertussis, Tetanus Vaccination: No Hx Pneumococcal Vaccination: 06/17/11 Review of Systems - Review of Systems Constitutional: See HPI EENT: No symptoms reported Cardiovascular: No symptoms reported Respiratory: No symptoms reported Gastrointestinal: See HPI Genitourinary: See HPI Female Genitourinary: See HPI Musculoskeletal: No symptoms reported Skin: No symptoms reported Hematologic/Lymphatic: No symptoms reported Neurological/Psychological: No symptoms reported Physical Exam - Vital signs Vitals: Temp Pulse Resp BP Pulse Ox 98.9 F 78 18 122/69 98 08/14/18 12:50 08/14/18 12:50 08/14/18 12:50 08/14/18 12:50 08/14/18 12:50 - Notes Notes: GENERAL: Obese alert, interacts well. No acute distress. HEAD: Normocephalic, atraumatic. EYES: Pupils equal, round, and reactive to light. Extraocular movements intact. ENT: Oral mucosa moist, tongue midline. NECK: Full range of motion. Supple. Trachea midline. LUNGS: Clear to auscultation bilaterally, no wheezes, rales, or rhonchi. No respiratory distress. HEART: Regular rate and rhythm. No murmur ABDOMEN: Soft, Non-distended. Bowel sounds present in all 4 quadrants. Suprapubic tenderness noted, no right lower, no left lower, no right upper, no left upper abdominal pain. EXTREMITIES: Moves all 4 extremities spontaneously. No edema, normal radial and dorsalis pedis pulses bilaterally. No cyanosis. BACK: no cervical, thoracic, lumbar midline tenderness. No saddle anesthesia, normal distal neurovascular exam. No CVA tenderness noted bilaterally NEUROLOGICAL: Alert and oriented x3. Normal speech. cranial nerves II through XII grossly intact PSYCH: Normal affect, normal mood. SKIN: Warm, dry, normal turgor. No rashes or lesions noted. Course - Re-evaluation Re-evalutation: 08/14/18 15:08 Patient's labs show no signs of leukocytosis, no signs of anemia. Patient's GFR is within normal limits. Patient's creatinine is minorly decreased at 0.42. Patient's transaminases are both elevated. Discussed this at length with patient at bedside. She is denying any right upper or epigastric abdominal pain or trauma to the area. Discussed close follow-up with primary care provider. Patient's urine does show signs of infection, will treat for same. Patient is afebrile, non-tachycardic, stable for discharge. - Vital Signs Vital signs: Temp Pulse Resp BP Pulse Ox 98.9 F 78 18 122/69 98 08/14/18 12:50 08/14/18 12:50 08/14/18 12:50 08/14/18 12:50 08/14/18 12:50 - Laboratory Result Diagrams: 08/14/18 13:43 08/14/18 13:43 Laboratory results interpreted by me: 08/14/18 08/14/18 08/14/18 12:35 13:43 13:43 RDW 15.0 H Chloride 109 H Creatinine 0.42 L AST 306 H ALT 167 H Urine Blood MODERATE H Urine Urobilinogen 4.0 H Ur Leukocyte Esterase MODERATE H Discharge - Discharge Clinical Impression: Elevated transaminase level Urinary tract infection Qualifiers: Urinary tract infection type: acute cystitis Hematuria presence: without hematuria Qualified Code(s): N30.00 - Acute cystitis without hematuria Condition: Stable Disposition: HOME, SELF-CARE Instructions: Cephalexin ([facility]), Urinary Anesthetic Agent ([facility]), Urinary Tract Infection ([facility]) Additional Instructions: As we discussed you have been seen and treated in the emergency department for a urinary tract infection. Your liver enzymes are also elevated. You should make sure you follow-up with your primary care for recheck of these enzymes. Please take antibiotics as prescribed. Please return to the emergency room for any other concerning symptom. Prescriptions: Cephalexin Monohydrate [Keflex 500 mg Capsule] 500 mg PO BID 7 Days #14 capsule Phenazopyridine HCl [Pyridium 200 mg Tablet] 200 mg PO TID #15 tablet Referrals: DAVIDSON QUIROZ MD [Primary Care Provider] - Follow up as needed
[2018-08-14 15:28] VITALS: BP 134/56
== END 2018-08-14 15:28 | disposition home or self-care (01) ==
LOC: ER 12:29
DX: N30.00 Acute cystitis without hematuria (principal); R74.0 Nonspecific elevation of levels of transaminase and lactic acid dehydrogenase [LDH]; J44.9 Chronic obstructive pulmonary disease, unspecified; F32.9 Major depressive disorder, single episode, unspecified; F41.9 Anxiety disorder, unspecified; E78.5 Hyperlipidemia, unspecified; E78.00 Pure hypercholesterolemia, unspecified; Z79.899 Other long term (current) drug therapy
CPT/HCPCS: 99283; 36415; 87086; 83690; 85025; 87088; 80053; 81001; 87186; A9270 ×2; J3490

== ENCOUNTER 2018-08-18 13:14 | Emergency (ER) | payer MEDICARE, MEDICAID ==
[2018-08-18] MEDS ORDERED: NORMAL SALINE 1000 ML 1,000 ML IV ONE (14:09)
[2018-08-18] MEDS ORDERED: ONDANSETRON HCL INJ/PF 4 MG/2 ML SDV IV ONE (14:09)
[2018-08-18] MEDS ORDERED: FENTANYL CITRATE INJ/PF 100 MCG/2 ML AMPUL IV ONE (14:09)
[2018-08-18] MEDS ORDERED: KETOROLAC TROMETHAMINE INJ/PF 30 MG/1 ML SDV IV ONE (14:09)
--- NOTE | 2018-08-18 14:12 | ER Document Report ---
ED Medical Screen (RME) - General Chief Complaint: Pain With Urination Stated Complaint: URINARY PROBLEMS Time Seen by Provider: 08/18/18 14:06 Primary Care Provider: DAVIDSON QUIROZ MD [Primary Care Provider] - Follow up as needed Notes: Chief complaint: Abdominal pain History of complain:( obtained from----patient) 67 years old female who had a UTI diagnosed 2 days ago presents today with lower abdominal pain severe in nature. Associated with nausea no vomiting. Denies any diarrhea or constipation. States that she had a temperature of 103 at home. PHYSICAL EXAMINATION: GENERAL: Moderate acute distress. HEAD: Atraumatic, normocephalic. EYES: Pupils equal round and reactive to light, extraocular movements intact, conjunctiva are normal. ENT: Nares patent, oropharynx clear without exudates. Moist mucous membranes. NECK: Normal range of motion, supple without lymphadenopathy LUNGS: Breath sounds clear to auscultation bilaterally and equal. No wheezes rales or rhonchi. HEART: Regular rate and rhythm without murmurs ABDOMEN: Soft, diffusely tender, with guarding, nondistended abdomen. No guarding, no rebound. No masses appreciated. Examination of genitals-deferred Musculoskeletal: Normal range of motion, no pitting or edema. No cyanosis. NEUROLOGICAL: Cranial nerves grossly intact. Normal speech, normal gait. Normal sensory, motor exams PSYCH: Normal mood, normal affect. SKIN: Warm, Dry, normal turgor, no rashes or lesions noted. Dictation was performed using [email or web address] voice recognition software TRAVEL OUTSIDE OF THE [place] IN LAST 30 DAYS: No - Related Data Allergies/Adverse Reactions: No Known Allergies Allergy (Verified 08/18/18 13:14) Past Medical History - Social History Family history: None - Past Medical History Cardiac Medical History: Reports: Hx Hypercholesterolemia Denies: Hx Atrial Fibrillation, Hx Congestive Heart Failure, Hx Coronary Artery Disease, Hx Heart Attack, Hx Hypertension, Hx Peripheral Vascular Disease, Hx Pulmonary Embolism, Hx Heart Murmur Pulmonary Medical History: Reports: Hx Asthma, Hx COPD Denies: Hx Bronchitis, Hx Pneumonia, Hx Respiratory Failure, Hx Sleep Apnea, Hx Tuberculosis Neurological Medical History: 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 Denies: Hx Seizures Renal/ Medical History: Reports: Hx Kidney Stones. Denies: Hx End Stage Renal Disease, Hx Peritoneal Dialysis Malignancy Medical History: Denies: Hx Lung Cancer GI Medical History: Reports: Hx Gastroesophageal Reflux Disease. Denies: Hx Crohn's Disease, Hx Hepatitis, Hx Hiatal Hernia, Hx Irritable Bowel, Hx Liver Failure, Hx Pancreatitis, Hx Ulcer Musculoskeltal Medical History: Reports Hx Arthritis - back, Reports Hx Fibromyalgia, Denies Hx Muscular Dystrophy Skin Medical History: Denies Hx Psoriasis Psychiatric Medical History: Reports: Hx Anxiety, Hx Depression Denies: Hx Bipolar Disorder, Hx Post Traumatic Stress Disorder, Hx Schizophrenia Traumatic Medical History: Denies: Hx Fractures, Hx Pneumothorax, Hx Traumatic Brain Injury Infectious Medical History: Denies: Hx Hepatitis, Hx VRE Past Surgical History: Reports: Hx Cholecystectomy, Hx Genitourinary Surgery - bladder tack, Hx Gynecologic Surgery - hysterectomy partial, Hx Hysterectomy, Hx Tonsillectomy, Hx Tubal Ligation. Denies: Hx Appendectomy, Hx Bowel Surgery, Hx Section, Hx Colostomy, Hx Coronary Artery Bypass Graft, Hx Gastric Bypass Surgery, Hx Herniorrhaphy, Hx Mastectomy, Hx Open Heart Surgery, Hx Pacemaker - Immunizations Immunizations up to date: Yes Hx Diphtheria, Pertussis, Tetanus Vaccination: No History of Influenza Vaccine for 04/2017 - 09/2017 Season: Refused Physical Exam - Vital signs Vitals: Temp Pulse Resp BP Pulse Ox 98.4 F 81 18 140/87 H 100 08/18/18 13:22 08/18/18 13:22 08/18/18 13:22 08/18/18 13:22 08/18/18 13:22 Course - Vital Signs Vital signs: Temp Pulse Resp BP Pulse Ox 98.4 F 81 18 140/87 H 100 08/18/18 13:22 08/18/18 13:22 08/18/18 13:22 08/18/18 13:22 08/18/18 13:22 Doctor's Discharge - Discharge Referrals: DAVIDSON QUIROZ MD [Primary Care Provider] - Follow up as needed
[2018-08-18 14:35] LABS: APPEARANCE,URINE CLEAR; BILIRUBIN,URINE NEGATIVE (NEGATIVE); GLUCOSE, URINE NEGATIVE (NEGATIVE); KETONES,URINE NEGATIVE (NEGATIVE); LEUKOCYTE ESTERASE,URINE NEGATIVE (NEGATIVE); NITRITE,URINE POSITIVE (NEGATIVE); PROTEIN,URINE NEGATIVE (NEGATIVE); URINE SPECIFIC GRAVITY 1.009
[2018-08-18 14:40] LABS: COLOR,URINE DARK YELLOW
[2018-08-18 15:10] LABS: ABSOLUTE EOSINOPHILS # (AUTO) 0.1 10^3/uL (0.0-0.6); ABSOLUTE LYMPHOCYTES (AUTO) 2.3 10^3/uL (0.5-4.7); ABSOLUTE MONOCYTES (AUTO) 0.4 10^3/uL (0.1-1.4); ABSOLUTE NEUT (AUTO) 5.4 10^3/uL (1.7-8.2); BASOPHILS % (AUTO) 0.5 % (0-2); EOSINOPHILS % (AUTO) 0.8 % (0-6); HEMATOCRIT 37.5 % (36.0-47.0); HEMOGLOBIN 12.8 g/dL (12.0-15.5); LYMPHOCYTES % (AUTO) 27.7 % (13-45); MEAN CORPUSCULAR HEMOGLOBIN 30.6 pg (27.0-33.4); MEAN CORPUSCULAR HGB CONC 34.2 g/dL (32.0-36.0); MEAN CORPUSCULAR VOLUME 90 fl (80-97); MONOCYTES % (AUTO) 4.9 % (3-13); PLATELET COUNT 311 10^3/uL (150-450); RED BLOOD COUNT 4.19 10^6/uL (3.72-5.28); RED CELL DISTRIBUTION WIDTH 15.5 % (11.5-14.0); SEGMENTED NEUTROPHILS % (AUTO) 66.1 % (42-78); TOTAL CELLS COUNTED % (AUTO) 100 %; WHITE BLOOD COUNT 8.2 10^3/uL (4.0-10.5)
--- NOTE | 2018-08-18 15:25 | ER Document Report ---
ED General - General Chief Complaint: Pain With Urination Stated Complaint: URINARY PROBLEMS Time Seen by Provider: 08/18/18 14:06 Primary Care Provider: DAVIDSON QUIROZ MD [Primary Care Provider] - Follow up as needed TRAVEL OUTSIDE OF THE [place] IN LAST 30 DAYS: No - HPI Notes: Patient is a 67-year-old female that presents to the emergency department for chief complaint of dysuria and abdominal pain. Patient reports currently being treated for a urinary tract infection. She states she is having a lot of suprapubic pressure and pain. The pain has gotten worse over the last 2 days. She was started on Keflex 4 days ago and denies missing any doses. She states she has had intermittent fevers T-max at home was 103. Patient takes oxycodone 5 mg for chronic back pain which she states did give her some relief at home. She denies any associated nausea, vomiting, sahara rrhea. She does endorse urinary frequency and retention sensation. Past Medical History: Depression, hypertension, hyperlipidemia, chronic back pain Past Surgical History: abdominal adhesion lysis Social History: Daily tobacco. Denies drug and alcohol use. Family History: Reviewed and noncontributory for presenting illness Allergies: Reviewed, see documented allergy list. REVIEW OF SYSTEMS: CONSTITUTIONAL : No fever No chills No diaphoresis No recent illness EENT: No vision changes No congestion No sore throat CARDIOVASCULAR: No chest pain No palpitations RESPIRATORY: No shortness of breath No cough No difficulty breathing GASTROINTESTINAL: abdominal pain No nausea No vomiting No diarrhea GENITOURINARY: dysuria No hematuria difficulty urinating MUSCULOSKELETAL: No back pain No leg pain No arm pain SKIN: No rashes No lesions LYMPHATIC: No swollen, enlarged glands. NEUROLOGICAL: No lightheadedness No headache No weakness No paresthesias PSYCHIATRIC: No anxiety No depression PHYSICAL EXAMINATION: Vital signs reviewed, nursing noted reviewed. GENERAL: Well-appearing, well-nourished and in no acute distress. HEAD: Atraumatic, normocephalic. EYES: Eyes appear normal, extraocular movements intact, sclera anicteric, conj unctiva are normal. ENT: nares patent, oropharynx clear without exudates. Moist mucous membranes. NECK: Normal range of motion, supple without lymphadenopathy LUNGS: Breath sounds clear to auscultation bilaterally and equal. No wheezes rales or rhonchi. HEART: Regular rate and rhythm without murmurs ABDOMEN: Soft, suprapubic abdominal tenderness, normoactive bowel sounds. No rebound, guarding, or rigidity. No masses appreciated. EXTREMITIES: Nontender, good range of motion, no pitting or edema. NEUROLOGICAL: No focal neurological deficits. Moves all extremities spontaneously Motor and sensory grossly intact on exam. PSYCH: Normal mood, normal affect. SKIN: Warm, Dry, normal turgor, no rashes or lesions noted on exposed skin - Related Data Allergies/Adverse Reactions: No Known Allergies Allergy (Verified 08/18/18 13:14) Past Medical History - Social History Smoking Status: Current Every Day Smoker Chew tobacco use (# tins/day): No Frequency of alcohol use: None Drug Abuse: None Family History: CAD, DM, Malignancy - BREAST CANCER - 2 SISTERS Patient has suicidal ideation: No Patient has homicidal ideation: No - Past Medical History Cardiac Medical History: Reports: Hx Hypercholesterolemia Denies: Hx Atrial Fibrillation, Hx Congestive Heart Failure, Hx Coronary Art zackery Disease, Hx Heart Attack, Hx Hypertension, Hx Peripheral Vascular Disease, Hx Pulmonary Embolism, Hx Heart Murmur Pulmonary Medical History: Reports: Hx Asthma, Hx COPD Denies: Hx Bronchitis, Hx Pneumonia, Hx Respiratory Failure, Hx Sleep Apnea, Hx Tuberculosis Neurological Medical History: 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 Denies: Hx Seizures Renal/ Medical History: Reports: Hx Kidney Stones. Denies: Hx End Stage Renal Disease, Hx Peritoneal Dialysis Malignancy Medical History: Denies: Hx Lung Cancer GI Medical History: Reports: Hx Gastroesophageal Reflux Disease. Denies: Hx Crohn's Disease, Hx Hepatitis, Hx Hiatal Hernia, Hx Irritable Bowel, Hx Liver Failure, Hx Pancreatitis, Hx Ulcer Musculoskeletal Medical History: Reports Hx Arthritis - back, Reports Hx Fibromyalgia, Denies Hx Muscular Dystrophy Skin Medical History: Denies Hx Psoriasis Psychiatric Medical History: Reports: Hx Anxiety, Hx Depression Denies: Hx Bipolar Disorder, Hx Post Traumatic Stress Disorder, Hx Schizophrenia Traumatic Medical History: Denies: Hx Fractures, Hx Pneumothorax, Hx Traumatic Brain Injury Infectious Medical History: Denies: Hx Hepatitis, Hx VRE Past Surgical History: Reports: Hx Cholecystectomy, Hx Genitourinary Surgery - bladder tack, Hx Gynecologic Surgery - hysterectomy partial, Hx Hysterectomy, Hx Tonsillectomy, Hx Tubal Ligation. Denies: Hx Appendectomy, Hx Bowel Surgery, Hx Section, Hx Colostomy, Hx Coronary Artery Bypass Graft, Hx Gastric Bypass Surgery, Hx Herniorrhaphy, Hx Mastectomy, Hx Open Heart Surgery, Hx Pacemaker - Immunizations Immunizations up to date: Yes Hx Diphtheria, Pertussis, Tetanus Vaccination: No Hx Pneumococcal Vaccination: 06/17/11 Physical Exam - Vital signs Vitals: Temp Pulse Resp BP Pulse Ox 98.4 F 81 18 140/87 H 100 08/18/18 13:22 08/18/18 13:22 08/18/18 13:22 08/18/18 13:22 08/18/18 13:22 Course - Re-evaluation Re-evalutation: 08/18/18 15:24 Vitals reviewed. Nursing notes reviewed. Patient received pain medication, antiemetics and fluid in triage. 08/18/18 15:54 Perez catheter was placed for patient's complaint of urinary retention and greater than 400 mL's post void residual was drained. Patient had symptomatic relief after drainage of her bladder. Her retention is likely caused by her acute urinary tract infection. Patient's culture results were reviewed and she will be changed to Macrobid for further antibiotic treatment. She is not septic and is otherwise hemodynamically stable. Patient did receive 1 g IV Rocephin in the ED prior to discharge. She will be referred to urology if her urinary symptoms continue. Patient encouraged to see her primary care doctor tomorrow for voiding trial and Perez catheter removal. She was counseled on symptoms to return to the emergency room and verbalized understanding. She is stable at [facility]. Laboratory 08/18/18 08/18/18 08/18/18 14:16 14:46 14:46 WBC 8.2 RBC 4.19 Hgb 12.8 Hct 37.5 MCV 90 MCH 30.6 MCHC 34.2 RDW 15.5 H Plt Count 311 Seg Neutrophils % 66.1 Lymphocytes % 27.7 Monocytes % 4.9 Eosinophils % 0.8 Basophils % 0.5 Absolute Neutrophils 5.4 Absolute Lymphocytes 2.3 Absolute Monocytes 0.4 Absolute Eosinophils 0.1 Absolute Basophils 0.0 Sodium 141.3 Potassium 4.2 Chloride 106 Carbon Dioxide 25 Anion Gap 10 BUN 6 L Creatinine 0.43 L Est GFR ( Amer) > 60 Est GFR (Non-Af Amer) > 60 Glucose 95 Calcium 10.0 Total Bilirubin 0.4 Direct Bilirubin 0.3 Neonat Total Bilirubin Not Reportable Neonat Direct Bilirubin Not Reportable Neonat Indirect Bili Not Reportable AST 21 ALT 38 Alkaline Phosphatase 106 Total Protein 7.9 Albumin 4.7 Lipase 71.5 Urine Color DARK YELLOW Urine Appearance CLEAR Urine pH 6.0 Ur Specific [place] 1.009 Urine Protein NEGATIVE Urine Glucose (UA) NEGATIVE Urine Ketones NEGATIVE Urine Blood SMALL H Urine Nitrite POSITIVE H Urine Bilirubin NEGATIVE Urine Urobilinogen 2.0 H Ur Leukocyte Esterase NEGATIVE Urine WBC (Auto) 1 Urine RBC (Auto) 1 Squamous Epi Cells Auto 1 Urine Mucus (Auto) RARE Urine Ascorbic Acid NEGATIVE - Vital Signs Vital signs: Temp Pulse Resp BP Pulse Ox 98.4 F 81 18 140/87 H 100 08/18/18 13:22 08/18/18 13:22 08/18/18 13:22 08/18/18 13:22 08/18/18 13:22 - Laboratory Result Diagrams: 08/18/18 14:46 08/18/18 14:46 Laboratory results interpreted by me: 08/18/18 08/18/18 08/18/18 14:16 14:46 14:46 RDW 15.5 H BUN 6 L Creatinine 0.43 L Urine Blood SMALL H Urine Nitrite POSITIVE H Urine Urobilinogen 2.0 H Discharge - Discharge Clinical Impression: Urine retention UTI (urinary tract infection) Qualifiers: Urinary tract infection type: site unspecified Hematuria presence: with hematuria Qualified Code(s): N39.0 - Urinary tract infection, site not specified; R31.9 - Hematuria, unspecified Condition: Stable Disposition: HOME, SELF-CARE Instructions: Urinary Tract Infection ([facility]), Nitrofurantoin ([facility]), Urinary Retention ([facility]), Perez Catheter Care ([facility]) Additional Instructions: Please return to the emergency department if you have any worsening, or concern of your symptoms. Please return to the emergency department if you develop chest pain, difficulty breathing, severe abdominal pain, or ongoing vomiting. Please follow-up with your primary care physician in tomorrow and any other recommended physicians. If prescribed, take all medications as directed. If you have any questions or concerns do not hesitate to return the emergency department for evaluation. Prescriptions: Nitrofurantoin Macrocrystal [Macrodantin] 100 mg PO BID #14 capsule Referrals: DAVIDSON QUIROZ MD [Primary Care Provider] - Follow up tomorrow RICCO WOMACK MD [NO LOCAL MD] - Follow up in 3-5 days
[2018-08-18] MEDS ORDERED: CEFTRIAXONE INJ 1000 MG VIAL IV ONE (15:26)
[2018-08-18 15:27] LABS: ALANINE AMINOTRANSFERASE 38 U/L (9-52); ALBUMIN 4.7 g/dL (3.5-5.0); ALKALINE PHOSPHATASE 106 U/L (38-126); ANION GAP 10 (5-19); ASPARTATE AMINO TRANSFERASE 21 U/L (14-36); BILIRUBIN,DIRECT 0.3 mg/dL (0.0-0.4); BILIRUBIN,TOTAL 0.4 mg/dL (0.2-1.3); BLOOD UREA NITROGEN 6 mg/dL (7-20); CARBON DIOXIDE 25 mmol/L (22-30); CHLORIDE 106 mmol/L (98-107); GLUCOSE 95 mg/dL (75-110); LIPASE 71.5 U/L (23-300); POTASSIUM 4.2 mmol/L (3.6-5.0); SODIUM 141.3 mmol/L (137-145); TOTAL PROTEIN 7.9 g/dL (6.3-8.2)
[2018-08-18 16:50] VITALS: BP 135/65
== END 2018-08-18 16:49 | disposition home or self-care (01) ==
LOC: ER 13:14
DX: N39.0 Urinary tract infection, site not specified (principal); R31.9 Hematuria, unspecified; R33.9 Retention of urine, unspecified; R10.30 Lower abdominal pain, unspecified; I10 Essential (primary) hypertension; F17.200 Nicotine dependence, unspecified, uncomplicated; M54.9 Dorsalgia, unspecified; G89.29 Other chronic pain; Z79.891 Long term (current) use of opiate analgesic; J44.9 Chronic obstructive pulmonary disease, unspecified
CPT/HCPCS: 36415; 83690; 85025; 80053; 81001; J3010; J1885; J0696; J2405; J7030

== ENCOUNTER 2018-08-19 19:58 | Emergency (ER) | payer MEDICARE, MEDICAID ==
[2018-08-19 20:58] VITALS: BP 129/52
--- NOTE | 2018-08-19 22:55 | ER Document Report ---
HPI - HPI Time Seen by Provider: 08/19/18 21:56 Pain Level: Denies Context: Patient is a 67-year-old female who presents to the emergency department with a chief complaint of wanting her urinary catheter removed. She states that she feels like she does not need the catheter anymore. She was seen yesterday when she had 400 mL of urine in her bladder, therefore the catheter was placed. She is already on antibiotics for a urinary tract infection. She was supposed to follow-up with her primary care provider in regards to this visit, but she was unable to get an appointment today. She states that the catheter is bothering her and she would like to have it out. She denies any burning, lower abdominal pain, fever, or any symptoms. - CONSTITUTIONAL Constitutional: DENIES: Fever, Chills - NEURO Neurology: DENIES: Headache - CARDIOVASCULAR Cardiovascular: DENIES: Chest pain - RESPIRATORY Respiratory: DENIES: Trouble Breathing - GASTROINTESTINAL Gastrointestinal: DENIES: Abdominal Pain - URINARY Urinary: DENIES: Dysuria, Urgency, Frequency - REPRODUCTIVE Reproductive: DENIES: : - DERM Skin Color: Normal Past Medical History - Social History Smoking Status: Current Every Day Smoker Chew tobacco use (# tins/day): No Frequency of alcohol use: None Drug Abuse: None Family History: CAD, DM, Malignancy - BREAST CANCER - 2 SISTERS Patient has suicidal ideation: No Patient has homicidal ideation: No - Past Medical History Cardiac Medical History: Reports: Hx Hypercholesterolemia Denies: Hx Atrial Fibrillation, Hx Congestive Heart Failure, Hx Coronary Artery Disease, Hx Heart Attack, Hx Hypertension, Hx Peripheral Vascular Disease, Hx Pulmonary Embolism, Hx Heart Murmur Pulmonary Medical History: Reports: Hx Asthma, Hx COPD Denies: Hx Bronchitis, Hx Pneumonia, Hx Respiratory Failure, Hx Sleep Apnea, Hx Tuberculosis Neurological Medical History: 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 Denies: Hx Seizures Renal/ Medical History: Reports: Hx Kidney Stones. Denies: Hx End Stage Renal Disease, Hx Peritoneal Dialysis Malignancy Medical History: Denies: Hx Lung Cancer GI Medical History: Reports: Hx Gastroesophageal Reflux Disease. Denies: Hx Crohn's Disease, Hx Hepatitis, Hx Hiatal Hernia, Hx Irritable Bowel, Hx Liver Failure, Hx Pancreatitis, Hx Ulcer Musculoskeletal Medical History: Reports Hx Arthritis - back, Reports Hx Fibromyalgia, Denies Hx Muscular Dystrophy Skin Medical History: Denies Hx Psoriasis Psychiatric Medical History: Reports: Hx Anxiety, Hx Depression Denies: Hx Bipolar Disorder, Hx Post Traumatic Stress Disorder, Hx Schizophrenia Traumatic Medical History: Denies: Hx Fractures, Hx Pneumothorax, Hx Traumatic Brain Injury Infectious Medical History: Denies: Hx Hepatitis, Hx VRE Past Surgical History: Reports: Hx Cholecystectomy, Hx Genitourinary Surgery - bladder tack, Hx Gynecologic Surgery - hysterectomy partial, Hx Hysterectomy, Hx Tonsillectomy, Hx Tubal Ligation. Denies: Hx Appendectomy, Hx Bowel Surgery, Hx Section, Hx Colostomy, Hx Coronary Artery Bypass Graft, Hx Gastric Bypass Surgery, Hx Herniorrhaphy, Hx Mastectomy, Hx Open Heart Surgery, Hx Pacemaker - Immunizations Immunizations up to date: Yes Hx Diphtheria, Pertussis, Tetanus Vaccination: No Hx Pneumococcal Vaccination: 06/17/11 Vertical Provider Document - INFECTION CONTROL TRAVEL OUTSIDE OF THE [place] IN LAST 30 DAYS: No - HEENT HEENT: Atraumatic - NECK Neck: Normal Inspection - RESPIRATORY Respiratory: No Respiratory Distress - CARDIOVASCULAR Cardiovascular: Regular Rate, Regular Rhythm - GI/ABDOMEN Gastrointestinal: Abdomen Soft Notes: Urinary catheter in place clear yellow urine noted. - MUSCULOSKELETAL/EXTREMETIES Musculoskeletal/Extremeties: FROM - NEURO Level of Consciousness: Awake, Alert, Appropriate - DERM Integumentary: Warm, Dry Course - Re-evaluation Re-evalutation: 08/19/18 23:01 The patient's urinary catheter was removed by the staff. The patient was able to urinate. Verbal discharge instructions were given to the patient. They verbalized understanding. They are stable for discharge. - Vital Signs Vital signs: Temp Pulse Resp BP Pulse Ox 98.5 F 69 18 129/52 H 97 08/19/18 20:56 08/19/18 20:56 08/19/18 20:56 08/19/18 20:56 08/19/18 20:56 Discharge - Discharge Clinical Impression: Encounter for removal of urinary catheter Condition: Stable Disposition: HOME, SELF-CARE Additional Instructions: You were seen today in the emergency department to have urinary catheter removal. If you do not urinate in 8 hours, please return to the emergency department to be evaluated. Please continue the medications you are currently on. If you develop a fever, have worsening symptoms, or have any symptoms that are worrisome to you, please return to the emergency department. Follow-up with your primary care doctor in regards to this visit and your previous visit. Referrals: DAVIDSON QUIROZ MD [Primary Care Provider] - Follow up in 3-5 days
== END 2018-08-19 23:03 | disposition home or self-care (01) ==
LOC: ER 19:58
DX: Z46.6 Encounter for fitting and adjustment of urinary device (principal); N39.0 Urinary tract infection, site not specified; J44.9 Chronic obstructive pulmonary disease, unspecified; F17.200 Nicotine dependence, unspecified, uncomplicated
CPT/HCPCS: 99282

== ENCOUNTER → 2018-08-30 | Outpatient (CLI) | payer MEDICARE, MEDICAID ==
--- NOTE | 2018-08-30 12:33 | WOMENS IMAGING REPORT ---
EXAM DESCRIPTION: BONE DENSITY HIP/SPINE COMPLETED DATE/TIME: 08/30/2018 8:50 am REASON FOR STUDY: M81.8,OSTEOPOROSIS WITHOUT CURRENT PATHOLOGICAL FRACTURE OSTEOPOROSIS Z12.31 ENCN TR SCREEN MAMMOGRAM FOR MALIGNANT NEOPLASM OF CRUZ M81.8 OTHER OSTEOPOROSIS WITHOUT CURRENT PATHOLOGI INES FRACTU COMPARISON: 2005, 2009 TECHNIQUE: Dual-Energy X-ray Absorptiometry (DEXA) of the AP Spine and Hip. LIMITATIONS: None. FINDINGS: LUMBAR SPINE: The bone mineral density (BMD) measured from L1-L4 in the AP projection correlates with a T-score of -1.0, which is borderline osteopenic as defined by the World Health Organization. This is stable com pared to prior studies HIP: The bone mineral density (BMD) measured in the left femoral neck at the hip correlates with a T-score of -1.0, which is borderline osteopenic as defined by the World Health Organization. This is stable compared to prior studies IMPRESSION: 1. LUMBAR SPINE: Borderline osteopenic 2. HIP: Borderline osteopenic COMMENT: The World Health Organization defines low BMD as follows: T-score: Normal: Greater than -1.0 Osteopenia: Between -1.0 and -2.5 Osteoporosis: Less than -2.5 without fractures Established osteoporosis: Less than -2.5 with fractures In general, you may wish to consider: Diagnosis Treatment Follow-up DEXA Normal BMD Prevention 2-3 years Osteopenia Prevention/Therapy 1-2 years Osteoporosis Therapy Yearly TECHNICAL DOCUMENTATION: JOB ID: [id number] [employer]- All Rights Reserved Reading location - IP/workstation name: [email or web address]
== END ==
LOC: WI 08:28
PROVIDERS: ATTEND Internal Medicine
DX: M81.8 Other osteoporosis without current pathological fracture (principal)
CPT/HCPCS: 77080

== ENCOUNTER 2018-09-10 15:22 | Emergency (ER) | payer MEDICARE, MEDICAID ==
[2018-09-10] MEDS ORDERED: MORPHINE SULFATE 10 MG/ML INJ IV ONE (16:51)
[2018-09-10] MEDS ORDERED: IPRATROPIUM/ALBUTEROL 0.5-2.5 MG/3 ML AMPUL NEB ONE ×2 (16:51→18:56)
[2018-09-10] MEDS ORDERED: ONDANSETRON HCL INJ/PF 4 MG/2 ML SDV IV ONE (16:52)
--- NOTE | 2018-09-10 16:53 | ER Document Report ---
ED Medical Screen (RME) - General Chief Complaint: Shortness Of Breath Stated Complaint: COUGH, DIFFICULTY BREATHING Time Seen by Provider: 09/10/18 16:51 Primary Care Provider: DAVIDSON QUIROZ MD [Primary Care Provider] - Follow up as needed Mode of Arrival: Wheelchair Information source: Patient Notes: 67-year-old female presents with 2 days of persistent cough, right-sided chest and back pain, fever, chills and lightheadedness that started 2 days prior to arrival. Patient reports a fever of 100.4. I have greeted and performed a rapid initial assessment of this patient. A comprehensive ED assessment and evaluation of the patient, analysis of test results and completion of medical decision making process we will be contacted by additional ED providers. PHYSICAL EXAMINATION: Vital signs reviewed GENERAL: Ill-appearing, moderate distress LUNGS: Persistent harsh cough, diminished breath sounds Musculoskeletal: Normal range of motion NEUROLOGICAL: Normal speech, normal gait. PSYCH: Normal mood, normal affect. SKIN: Warm, Dry, normal turgor, no rashes or lesions noted. TRAVEL OUTSIDE OF THE [place] IN LAST 30 DAYS: No - HPI Onset: Other Onset/Duration: Persistent Quality of pain: Throbbing Severity: Moderate Associated Symptoms: Body/muscle aches, Chest pain, Cough (productive), Dizzy/lightheaded, Fever Exacerbated by: Coughing Relieved by: Denies Similar symptoms previously: No Recently seen / treated by doctor: No - Related Data Smoking: Cigarettes Frequency of alcohol use: None Drug Abuse: None Allergies/Adverse Reactions: No Known Allergies Allergy (Verified 08/18/18 13:14) Past Medical History - Social History Chew tobacco use (# tins/day): No Frequency of alcohol use: None Drug Abuse: None Family history: None - Past Medical History Cardiac Medical History: Reports: Hx Hypercholesterolemia Denies: Hx Atrial Fibrillation, Hx Congestive Heart Failure, Hx Coronary Artery Disease, Hx Heart Attack, Hx Hypertension, Hx Peripheral Vascular Disease, Hx Pulmonary Embolism, Hx Heart Murmur Pulmonary Medical History: Reports: Hx Asthma, Hx COPD Denies: Hx Bronchitis, Hx Pneumonia, Hx Respiratory Failure, Hx Sleep Apnea, Hx Tuberculosis Neurological Medical History: 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 Denies: Hx Seizures Renal/ Medical History: Reports: Hx Kidney Stones. Denies: Hx End Stage Renal Disease, Hx Peritoneal Dialysis Malignancy Medical History: Denies: Hx Lung Cancer GI Medical History: Reports: Hx Gastroesophageal Reflux Disease. Denies: Hx Crohn's Disease, Hx Hepatitis, Hx Hiatal Hernia, Hx Irritable Bowel, Hx Liver Failure, Hx Pancreatitis, Hx Ulcer Musculoskeltal Medical History: Reports Hx Arthritis - back, Reports Hx Fibromyalgia, Denies Hx Muscular Dystrophy Skin Medical History: Denies Hx Psoriasis Psychiatric Medical History: Reports: Hx Anxiety, Hx Depression Denies: Hx Bipolar Disorder, Hx Post Traumatic Stress Disorder, Hx Schizophrenia Traumatic Medical History: Denies: Hx Fractures, Hx Pneumothorax, Hx Traumatic Brain Injury Infectious Medical History: Denies: Hx Hepatitis, Hx VRE Past Surgical History: Reports: Hx Cholecystectomy, Hx Genitourinary Surgery - bladder tack, Hx Gynecologic Surgery - hysterectomy partial, Hx Hysterectomy, Hx Tonsillectomy, Hx Tubal Ligation. Denies: Hx Appendectomy, Hx Bowel Surgery, Hx Section, Hx Colostomy, Hx Coronary Artery Bypass Graft, Hx Gastric Bypass Surgery, Hx Herniorrhaphy, Hx Mastectomy, Hx Open Heart Surgery, Hx Pacemaker - Immunizations Immunizations up to date: Yes Hx Diphtheria, Pertussis, Tetanus Vaccination: No History of Influenza Vaccine for 04/2017 - 09/2017 Season: Refused Physical Exam - Vital signs Vitals: Temp Pulse Resp BP Pulse Ox 98.4 F 97 23 H 169/134 H 97 09/10/18 15:35 09/10/18 15:35 09/10/18 15:35 09/10/18 15:35 09/10/18 15:35 Course - Vital Signs Vital signs: Temp Pulse Resp BP Pulse Ox 98.4 F 97 23 H 169/134 H 97 09/10/18 15:35 09/10/18 15:35 09/10/18 15:35 09/10/18 15:35 09/10/18 15:35 Doctor's Discharge - Discharge Referrals: DAVIDSON QUIROZ MD [Primary Care Provider] - Follow up as needed
[2018-09-10 18:03] LABS: ABSOLUTE EOSINOPHILS # (AUTO) 0.1 10^3/uL (0.0-0.6); ABSOLUTE LYMPHOCYTES (AUTO) 1.8 10^3/uL (0.5-4.7); ABSOLUTE MONOCYTES (AUTO) 0.6 10^3/uL (0.1-1.4); ABSOLUTE NEUT (AUTO) 8.4 10^3/uL (1.7-8.2); BASOPHILS % (AUTO) 0.4 % (0-2); EOSINOPHILS % (AUTO) 0.7 % (0-6); HEMATOCRIT 36.1 % (36.0-47.0); HEMOGLOBIN 12.2 g/dL (12.0-15.5); LYMPHOCYTES % (AUTO) 16.7 % (13-45); MEAN CORPUSCULAR HEMOGLOBIN 29.8 pg (27.0-33.4); MEAN CORPUSCULAR HGB CONC 33.8 g/dL (32.0-36.0); MEAN CORPUSCULAR VOLUME 88 fl (80-97); MONOCYTES % (AUTO) 5.6 % (3-13); PLATELET COUNT 340 10^3/uL (150-450); RED CELL DISTRIBUTION WIDTH 15.5 % (11.5-14.0); SEGMENTED NEUTROPHILS % (AUTO) 76.6 % (42-78); TOTAL CELLS COUNTED % (AUTO) 100 %; WHITE BLOOD COUNT 10.9 10^3/uL (4.0-10.5)
--- NOTE | 2018-09-10 18:05 | RADIOLOGY REPORT (SQ) ---
EXAM DESCRIPTION: CHEST 2 VIEWS COMPLETED DATE/TIME: 09/10/2018 5:10 pm REASON FOR STUDY: cough/fever COMPARISON: Chest x-ray 04/01/2018. EXAM PARAMETERS: NUMBER OF VIEWS: two views TECHNIQUE: Digital Frontal and Lateral radiographic views of the chest acquired. RADIATION DOSE: NA LIMITATIONS: none FINDINGS: LUNGS AND PLEURA: No consolidation, pneumothorax or pleural effusion. MEDIASTINUM AND HILAR STRUCTURES: No masses or contour abnormalities. HEART AND VASCULAR STRUCTURES: The heart is not enlarged. There is diffuse interstitial thickening. BONES: No acute findings. HARDWARE: None in the chest. IMPRESSION: Diffuse interstitial thickening, may be secondary to interstitial edema and/or pneumonia . TECHNICAL DOCUMENTATION: JOB ID: [id number] [employer]- All Rights Reserved Reading location - IP/workstation name: [email or web address]
[2018-09-10 18:19] LABS: ALANINE AMINOTRANSFERASE 8 U/L (9-52); ALBUMIN 4.5 g/dL (3.5-5.0); ALKALINE PHOSPHATASE 114 U/L (38-126); ANION GAP 11 (5-19); ASPARTATE AMINO TRANSFERASE 21 U/L (14-36); BILIRUBIN,DIRECT 0.3 mg/dL (0.0-0.4); BILIRUBIN,TOTAL 0.4 mg/dL (0.2-1.3); BLOOD UREA NITROGEN 4 mg/dL (7-20); CALCIUM 9.9 mg/dL (8.4-10.2); CARBON DIOXIDE 21 mmol/L (22-30); CHLORIDE 104 mmol/L (98-107); GLUCOSE 92 mg/dL (75-110); POTASSIUM 3.3 mmol/L (3.6-5.0); SODIUM 136.1 mmol/L (137-145); TOTAL PROTEIN 8.4 g/dL (6.3-8.2)
[2018-09-10 18:20] LABS: A TYPE INFLUENZA AG NEGATIVE (NEGATIVE); B INFLUENZA AG NEGATIVE (NEGATIVE)
[2018-09-10] MEDS ORDERED: KETOROLAC TROMETHAMINE INJ/PF 30 MG/1 ML SDV IV ONE (18:56)
[2018-09-10] MEDS ORDERED: METHYLPREDNISOLONE INJ 125 MG/2 ML SDV IV ONE (18:56)
[2018-09-10] MEDS ORDERED: DOXYCYCLINE HYCLATE 100 MG TABLET PO ONE (18:56)
[2018-09-10] MEDS ORDERED: RINGERS SOLUTION,LACTATED 1,000 ML IV ONE (18:56)
--- NOTE | 2018-09-10 19:02 | ER Document Report ---
ED General - General Chief Complaint: Shortness Of Breath Stated Complaint: COUGH, DIFFICULTY BREATHING Time Seen by Provider: 09/10/18 16:51 Primary Care Provider: DAVIDSON QIUROZ MD [Primary Care Provider] - Follow up tomorrow Mode of Arrival: Wheelchair Notes: Patient is a 67-year-old female past medical history of asthma versus COPD, essential hypertension, hyperlipidemia, presents with 3-4 days of fever, cough without sputum production and shortness of breath. Patient states her symptoms started gradually, have worsened over that period of time. Nothing seems to improve her symptoms. Exertion worsens her symptoms. States she feels like she has influenza. Denies history of similar symptoms in the recent past. Has not seen her primary care physician. She does note diffuse back and flank tenderness with coughing and and relates this to how much she has been coughing. Described as a stabbing, aching, severe pain when she coughs. She notes nausea but has been able to drink fluids without vomiting. Does continue to smoke. TRAVEL OUTSIDE OF THE [place] IN LAST 30 DAYS: No - Related Data Allergies/Adverse Reactions: No Known Allergies Allergy (Verified 08/18/18 13:14) Past Medical History - General Information source: Patient - Social History Smoking Status: Current Every Day Smoker Chew tobacco use (# tins/day): No Frequency of alcohol use: None Drug Abuse: None Lives with: Alone Family History: CAD, DM, Malignancy - BREAST CANCER - 2 SISTERS Patient has suicidal ideation: No Patient has homicidal ideation: No - Past Medical History Cardiac Medical History: Reports: Hx Hypercholesterolemia Denies: Hx Atrial Fibrillation, Hx Congestive Heart Failure, Hx Coronary Ar yaya Disease, Hx Heart Attack, Hx Hypertension, Hx Peripheral Vascular Disease, Hx Pulmonary Embolism, Hx Heart Murmur Pulmonary Medical History: Reports: Hx Asthma, Hx COPD Denies: Hx Bronchitis, Hx Pneumonia, Hx Respiratory Failure, Hx Sleep Apnea, Hx Tuberculosis Neurological Medical History: 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 Denies: Hx Seizures Renal/ Medical History: Reports: Hx Kidney Stones. Denies: Hx End Stage Renal Disease, Hx Peritoneal Dialysis Malignancy Medical History: Denies: Hx Lung Cancer GI Medical History: Reports: Hx Gastroesophageal Reflux Disease. Denies: Hx Crohn's Disease, Hx Hepatitis, Hx Hiatal Hernia, Hx Irritable Bowel, Hx Liver Failure, Hx Pancreatitis, Hx Ulcer Musculoskeletal Medical History: Reports Hx Arthritis - back, Reports Hx Fibromyalgia, Denies Hx Muscular Dystrophy Skin Medical History: Denies Hx Psoriasis Psychiatric Medical History: Reports: Hx Anxiety, Hx Depression Denies: Hx Bipolar Disorder, Hx Post Traumatic Stress Disorder, Hx Schizophrenia Traumatic Medical History: Denies: Hx Fractures, Hx Pneumothorax, Hx Traumatic Brain Injury Infectious Medical History: Denies: Hx Hepatitis, Hx VRE Past Surgical History: Reports: Hx Cholecystectomy, Hx Genitourinary Surgery - bladder tack, Hx Gynecologic Surgery - hysterectomy partial, Hx Hysterectomy, Hx Tonsillectomy, Hx Tubal Ligation. Denies: Hx Appendectomy, Hx Bowel Surgery, Hx Section, Hx Colostomy, Hx Coronary Artery Bypass Graft, Hx Gastric Bypass Surgery, Hx Herniorrhaphy, Hx Mastectomy, Hx Open Heart Surgery, Hx Pacemaker - Immunizations Immunizations up to date: Yes Hx Diphtheria, Pertussis, Tetanus Vaccination: No Hx Pneumococcal Vaccination: 06/17/11 Review of Systems - Review of Systems Notes: Constitutional: Positive for fever. HENT: Negative for sore throat. Eyes: Negative for visual changes. Cardiovascular: Negative for chest pain. Respiratory: Positive for shortness of breath. Gastrointestinal: Negative for abdominal pain, vomiting or diarrhea. Genitourinary: Negative for dysuria. Musculoskeletal: Positive for lower rib and flank pain with coughing Skin: Negative for rash. Neurological: Negative for headaches, weakness or numbness. 10 point ROS negative except as marked above and in HPI. Physical Exam - Vital signs Vitals: Temp Pulse Resp BP Pulse Ox 98.4 F 97 23 H 169/134 H 97 09/10/18 15:35 09/10/18 15:35 09/10/18 15:35 09/10/18 15:35 09/10/18 15:35 Interpretation: Hypertensive Notes: PHYSICAL EXAMINATION: GENERAL: Well-appearing, well-nourished and in no acute distress. HEAD: Atraumatic, normocephalic. EYES: Pupils equal round and reactive to light, extraocular movements intact, sclera anicteric, conjunctiva are normal. ENT: nares patent, oropharynx clear without exudates. Moderate dry mucous m embranes. NECK: Normal range of motion, supple without lymphadenopathy LUNGS: Coarse breath sounds throughout. Faint expiratory wheezing all lung robles. No distress or retractions. HEART: Regular rate and rhythm without murmurs ABDOMEN: Soft, nontender, normoactive bowel sounds. No guarding, no rebound. No masses appreciated. EXTREMITIES: Normal range of motion, no pitting or edema. No cyanosis. NEUROLOGICAL: No focal neurological deficits. Moves all extremities spontaneously and on command. PSYCH: Normal mood, normal affect. SKIN: Warm, Dry, normal turgor, no rashes or lesions noted. Course - Re-evaluation Re-evalutation: 09/10/18 18:59 Patient presents with complaints of 2 days of cough, fever to 104 F, shortness of breath as well as diffuse body pain. Chest x-ray shows bilateral infiltrates consistent with interstitial edema versus pneumonia. Patient's clinical history is not consistent with edema given fever and infectious symptoms as well as a lack of history of congestive heart failure. She has no additional stigmata of CHF on clinical examination. The patient is saturating 96% on room air, otherwise nontoxic in appearance. Coarse breath sounds in all lung robles. Curb 65 score is 1, patient is appropriate for outpatient management. Will be started on doxycycline twice daily for 10 days. I have also refilled her albuterol inhalers at home and started her on a course of prednisone given her underlying obstructive lung disease. Alternative consideration of the influenza although initial flu test is negative although this is not definitive. However there is no appropriate therapy for this diagnosis. At this time will discharge with return precautions and follow-up recommendations. Verbal discharge instructions given a the bedside and opportunity for questions given. Medication warnings reviewed. Patient is in agreement with this plan and has verbalized understanding of return precautions and the need for primary care follow-up in the next 24-72 hours. - Vital Signs Vital signs: Temp Pulse Resp BP Pulse Ox 99.3 F 78 17 114/51 L 93 09/10/18 20:45 09/10/18 20:45 09/10/18 20:45 09/10/18 20:45 09/10/18 20:45 - Laboratory Result Diagrams: 09/10/18 17:26 09/10/18 17:26 Laboratory results interpreted by me: 09/10/18 09/10/18 17:26 17:26 WBC 10.9 H RDW 15.5 H Absolute Neutrophils 8.4 H Sodium 136.1 L Potassium 3.3 L Carbon Dioxide 21 L BUN 4 L Creatinine 0.47 L ALT 8 L Total Protein 8.4 H - Diagnostic Test Radiology reviewed: Image reviewed, Reports reviewed Radiology results interpreted by me: 09/10/18 19:02 Chest x-ray: Diffuse interstitial changes Discharge - Discharge Clinical Impression: Shortness of breath, Dehydration Bilateral pneumonia Qualifiers: Pneumonia type: due to unspecified organism Lung location: unspecified part of lung Qualified Code(s): J18.9 - Pneumonia, unspecified organism Condition: Stable Disposition: HOME, SELF-CARE Additional Instructions: You have been diagnosed with a pneumonia. It is very important that you take all of your antibiotics until they are gone even if you are feeling better. Please return to the emergency department immediately if you began having worsening shortness of breath, become confused, have worsening pain, pass out, have persistent vomiting that prevents you from being able to drink fluids for m ore than 12 hours, or have any other symptoms that are worrisome to you. Please follow-up with your primary care doctor in the next 1-2 days. Prescriptions: Albuterol Sulfate [Albuterol Sulfate 5mg/1 mL] 5 mg NEB Q4 PRN #30 ml PRN Reason: RX: Doxycycline Monohydrate 100 mg PO BID #20 capsule RX: Prednisone [Deltasone 20 mg Tablet] 2 tab PO DAILY 5 Days tablet Referrals: DAVIDSON QUIROZ MD [Primary Care Provider] - Follow up tomorrow
[2018-09-10 20:49] VITALS: BP 114/51
== END 2018-09-10 20:56 | disposition home or self-care (01) ==
LOC: ER 15:22
DX: J18.9 Pneumonia, unspecified organism (principal); J44.0 Chronic obstructive pulmonary disease with (acute) lower respiratory infection; E86.0 Dehydration; R06.02 Shortness of breath; R05 Cough; R11.0 Nausea; R50.9 Fever, unspecified; R07.81 Pleurodynia; R10.9 Unspecified abdominal pain; F17.200 Nicotine dependence, unspecified, uncomplicated
CPT/HCPCS: 94640 ×2; 99285; 96361; 96374; 96375; 36415; 85025; 80053; 87804; 71046; A9270 ×2; J2930; J1885; J2270; J2405; J7120; J7620

== ENCOUNTER 2018-09-15 00:37 | Emergency (ER) | payer MEDICARE, MEDICAID ==
[2018-09-15] MEDS ORDERED: IPRATROPIUM/ALBUTEROL 0.5-2.5 MG/3 ML AMPUL NEB ONE (00:41)
[2018-09-15] MEDS ORDERED: METHYLPREDNISOLONE INJ 125 MG/2 ML SDV IV ONE (00:41)
[2018-09-15] MEDS: ALBUTEROL SULFATE 0.083% NEB 2.5 MG/3 ML AMPUL NEB SCH ×2 (01:11→02:18)
--- NOTE | 2018-09-15 01:21 | RADIOLOGY REPORT (SQ) ---
XR CHEST 1 VIEW HISTORY: Dyspnea. COMPARISON: None. FINDINGS: The heart size is normal. The lungs are clear. No pleural effusion or pneumothorax is seen. No acute bony findings. IMPRESSION: No evidence of acute cardiopulmonary disease.
[2018-09-15 01:49] LABS: ABSOLUTE LYMPHOCYTES (AUTO) 3.2 10^3/uL (0.5-4.7); ABSOLUTE MONOCYTES (AUTO) 0.5 10^3/uL (0.1-1.4); ABSOLUTE NEUT (AUTO) 6.3 10^3/uL (1.7-8.2); BASOPHILS % (AUTO) 0.2 % (0-2); EOSINOPHILS % (AUTO) 0.4 % (0-6); HEMATOCRIT 31.8 % (36.0-47.0); HEMOGLOBIN 10.8 g/dL (12.0-15.5); LYMPHOCYTES % (AUTO) 31.6 % (13-45); MEAN CORPUSCULAR HEMOGLOBIN 30.3 pg (27.0-33.4); MEAN CORPUSCULAR VOLUME 89 fl (80-97); MONOCYTES % (AUTO) 5.3 % (3-13); PLATELET COUNT 350 10^3/uL (150-450); RED BLOOD COUNT 3.57 10^6/uL (3.72-5.28); RED CELL DISTRIBUTION WIDTH 15.8 % (11.5-14.0); SEGMENTED NEUTROPHILS % (AUTO) 62.5 % (42-78); TOTAL CELLS COUNTED % (AUTO) 100 %; WHITE BLOOD COUNT 10.1 10^3/uL (4.0-10.5)
[2018-09-15 02:05] LABS: ALANINE AMINOTRANSFERASE 11 U/L (9-52); ALKALINE PHOSPHATASE 100 U/L (38-126); ANION GAP 8 (5-19); ASPARTATE AMINO TRANSFERASE 20 U/L (14-36); BILIRUBIN,DIRECT 0.3 mg/dL (0.0-0.4); BILIRUBIN,TOTAL 0.3 mg/dL (0.2-1.3); BLOOD UREA NITROGEN 5 mg/dL (7-20); CALCIUM 10.1 mg/dL (8.4-10.2); CARBON DIOXIDE 25 mmol/L (22-30); CHLORIDE 108 mmol/L (98-107); GLUCOSE 89 mg/dL (75-110); SODIUM 140.9 mmol/L (137-145); TOTAL PROTEIN 7.1 g/dL (6.3-8.2)
[2018-09-15 02:11] LABS: POTASSIUM 2.9 mmol/L (3.6-5.0)
[2018-09-15] MEDS: MAGNESIUM SULFATE/D5W 1 GM/100 ML RTUPB IV SCH ×2 (02:19→03:29)
[2018-09-15] MEDS ORDERED: POTASSIUM CHLORIDE 20 MEQ/15 ML UDCUP PO ONE (03:13)
[2018-09-15] MEDS ORDERED: MORPHINE SULFATE 10 MG/ML INJ IV ONE (03:25)
[2018-09-15] MEDS ORDERED: ONDANSETRON HCL INJ/PF 4 MG/2 ML SDV IV ONE (03:25)
[2018-09-15 04:41] LABS: CREATINE KINASE MB 0.42 ng/mL (<4.55); NT PRO BNP 227 pg/mL (5-900)
[2018-09-15 04:43] LABS: TROPONIN I < 0.012 ng/mL
[2018-09-15 04:49] LABS: APPEARANCE,URINE CLEAR; BILIRUBIN,URINE NEGATIVE (NEGATIVE); COLOR,URINE STRAW; GLUCOSE, URINE NEGATIVE (NEGATIVE); KETONES,URINE NEGATIVE (NEGATIVE); LEUKOCYTE ESTERASE,URINE NEGATIVE (NEGATIVE); NITRITE,URINE NEGATIVE (NEGATIVE); PROTEIN,URINE NEGATIVE (NEGATIVE); URINE SPECIFIC GRAVITY 1.003; UROBILINOGEN,URINE NEGATIVE mg/dL (<2.0)
--- NOTE | 2018-09-15 05:48 | ER Document Report ---
ED General - General Chief Complaint: Shortness Of Breath Stated Complaint: SHORTNESS OF BREATH Time Seen by Provider: 09/15/18 01:32 Primary Care Provider: DAVIDSON QUIROZ MD [Primary Care Provider] - Follow up as needed TRAVEL OUTSIDE OF THE [place] IN LAST 30 DAYS: No - HPI Notes: Patient presents emergency department for evaluation of shortness of breath and cough. She was recently seen here, diagnosed with double pneumonia. She states she is taking her antibiotics and steroids. She is out of her albuterol inhaler. She states she feels slightly worse. She complains of chest wall pain, but the tightness and a sore and aching pain. It is in the left and right anterior chest, left posterior thorax. It is worsened with deep breaths. She continues to cough. - Related Data Allergies/Adverse Reactions: No Known Allergies Allergy (Verified 08/18/18 13:14) Past Medical History - General Information source: Patient - Social History Smoking Status: Current Every Day Smoker Chew tobacco use (# tins/day): No Frequency of alcohol use: None Drug Abuse: None Family History: CAD, DM, Malignancy - BREAST CANCER - 2 SISTERS Patient has suicidal ideation: No Patient has homicidal ideation: No - Past Medical History Cardiac Medical History: Reports: Hx Hypercholesterolemia Denies: Hx Atrial Fibrillation, Hx Congestive Heart Failure, Hx Coronary Artery Disease, Hx Heart Attack, Hx Hypertension, Hx Peripheral Vascular Disea se, Hx Pulmonary Embolism, Hx Heart Murmur Pulmonary Medical History: Reports: Hx Asthma, Hx COPD, Hx Pneumonia Denies: Hx Bronchitis, Hx Respiratory Failure, Hx Sleep Apnea, Hx Tuberculosis Neurological Medical History: 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 Denies: Hx Seizures Renal/ Medical History: Reports: Hx Kidney Stones. Denies: Hx End Stage Renal Disease, Hx Peritoneal Dialysis Malignancy Medical History: Denies: Hx Lung Cancer GI Medical History: Reports: Hx Gastroesophageal Reflux Disease. Denies: Hx Crohn's Disease, Hx Hepatitis, Hx Hiatal Hernia, Hx Irritable Bowel, Hx Liver Failure, Hx Pancreatitis, Hx Ulcer Musculoskeletal Medical History: Reports Hx Arthritis - back, Reports Hx Fibromyalgia, Denies Hx Muscular Dystrophy Skin Medical History: Denies Hx Psoriasis Psychiatric Medical History: Reports: Hx Anxiety, Hx Depression Denies: Hx Bipolar Disorder, Hx Post Traumatic Stress Disorder, Hx Schizophrenia Traumatic Medical History: Denies: Hx Fractures, Hx Pneumothorax, Hx Traumatic Brain Injury Infectious Medical History: Denies: Hx Hepatitis, Hx VRE Past Surgical History: Reports: Hx Cholecystectomy, Hx Genitourinary Surgery - bladder tack, Hx Gynecologic Surgery - hysterectomy partial, Hx Hysterectomy, Hx Tonsillectomy, Hx Tubal Ligation. Denies: Hx Appendectomy, Hx Bowel Surgery, Hx Section, Hx Colostomy, Hx Coronary Artery Bypass Graft, Hx Gastric Bypass Surgery, Hx Herniorrhaphy, Hx Mastectomy, Hx Open Heart Surgery, Hx Pacemaker - Immunizations Immunizations up to date: Yes Hx Diphtheria, Pertussis, Tetanus Vaccination: No Hx Pneumococcal Vaccination: 06/17/11 Review of Systems - Review of Systems Constitutional: No symptoms reported EENT: No symptoms reported Cardiovascular: See HPI Respiratory: See HPI Genitourinary: No symptoms reported Female Genitourinary: No symptoms reported Musculoskeletal: See HPI Skin: No symptoms reported Neurological/Psychological: No symptoms reported Physical Exam - Vital signs Vitals: Temp 98.7 F 09/15/18 00:40 - Notes Notes: Vital signs reviewed, please refer to chart. Patient is normocephalic, atraumatic. Pupils equal round, reactive to light. Neck is supple without meningismus. Heart is regular rate and rhythm. Lungs reveal expiratory wheezes throughout. Abdomen is soft, nontender, normoactive bowel sounds throughout. Extremities without cyanosis, clubbing. No posterior calf tenderness. Peripheral pulses are equal. Skin is warm and dry. Patient is awake, alert, neurological exam is nonfocal. Course - Re-evaluation Re-evalutation: 09/15/18 05:45 Patient presents emergency department for evaluation. She continues to smoke despite asthma and COPD. She is told she needs to quit. She has no significant leukocytosis. She is mildly anemic. She is hypokalemic. This is likely secondary to a shift from the albuterol, but potassium was given. Magnesium was given. Patient's wheezes entirely resolved. She is feeling entirely improved. Oxygen saturation remains 93-94% on room air. Her chest x-ray today is actually negative. She is to continue the doxycycline as well as prednisone that she has at home. I will write her a prescription for nebulized albuterol, which she states she has run out of. She is feeling significantly improved and stable to go home. At this point she is to follow-up with primary care, return to the ED with worsening or new concerning symptoms of any sort. - Vital Signs Vital signs: Temp Pulse Resp BP Pulse Ox 98.7 F 23 H 100/75 93 09/15/18 00:40 09/15/18 03:01 09/15/18 03:01 09/15/18 03:01 - Laboratory Result Diagrams: 09/15/18 01:35 09/15/18 01:35 Laboratory results interpreted by me: 09/15/18 09/15/18 09/15/18 01:35 01:35 01:40 RBC 3.57 L Hgb 10.8 L Hct 31.8 L RDW 15.8 H Potassium 2.9 L* Chloride 108 H BUN 5 L Creatinine 0.48 L Urine Blood SMALL H Discharge - Discharge Clinical Impression: COPD with acute exacerbation, Hypokalemia Condition: Stable Disposition: HOME, SELF-CARE Instructions: Chronic Obstructive Lung Disease ([facility]), Hypokalemia ([facility]) Additional Instructions: Continue your antibiotics and prednisone as directed until gone. Use albuterol nebulizers as directed. Follow-up with your doctor this week. Return to the emergency department with worsening or new concerning symptoms of any sort. Prescriptions: Albuterol Sulfate [Proventil 0.5% Neb 2.5 mg/0.5 ml Vial.neb] 2.5 mg NEB Q6H #30 vial.neb Forms: Smoking Cessation Education Referrals: DAVIDSON QUIROZ MD [Primary Care Provider] - Follow up as needed
[2018-09-15 06:40] VITALS: BP 118/71
--- NOTE | 2018-09-15 08:07 | EKG REPORT ---
SEVERITY:- OTHERWISE NORMAL ECG - SINUS RHYTHM BORDERLINE LEFT AXIS DEVIATION : Confirmed by: Paul Frost MD 15-Sep-2018 08:06:19
== END 2018-09-15 06:40 | disposition home or self-care (01) ==
LOC: ER 00:37
DX: J44.1 Chronic obstructive pulmonary disease with (acute) exacerbation (principal); E87.6 Hypokalemia; F17.200 Nicotine dependence, unspecified, uncomplicated; E78.00 Pure hypercholesterolemia, unspecified; J44.9 Chronic obstructive pulmonary disease, unspecified; Z87.442 Personal history of urinary calculi; Z90.49 Acquired absence of other specified parts of digestive tract; Z90.710 Acquired absence of both cervix and uterus
CPT/HCPCS: 93005; 94640 ×2; 99284; 96375; 96365; 96366; 36415; 87040; 82553; 82550; 85025; 80053; 81001; 84484; 83880; 71045; 93010; J2930; J2270; J3475; A9270 ×3; J2405; J7620

== ENCOUNTER → 2018-09-19 | Outpatient (CLI) | payer MEDICARE, MEDICAID ==
[2018-09-19 16:57] LABS: POTASSIUM 4.6 mmol/L (3.6-5.0)
== END ==
LOC: LAB 15:50
PROVIDERS: ATTEND Internal Medicine
DX: E87.6 Hypokalemia (principal); E83.42 Hypomagnesemia
CPT/HCPCS: 36415; 83735; 84132

== ENCOUNTER → 2018-10-26 | Outpatient (CLI) | payer MEDICARE, MEDICAID ==
[2018-10-26 09:17] LABS: ALANINE AMINOTRANSFERASE 26 U/L (9-52); ALBUMIN 4.1 g/dL (3.5-5.0); ALKALINE PHOSPHATASE 118 U/L (38-126); ANION GAP 8 (5-19); ASPARTATE AMINO TRANSFERASE 21 U/L (14-36); BILIRUBIN,DIRECT 0.3 mg/dL (0.0-0.4); BILIRUBIN,TOTAL 0.4 mg/dL (0.2-1.3); BLOOD UREA NITROGEN 6 mg/dL (7-20); CALCIUM 9.8 mg/dL (8.4-10.2); CARBON DIOXIDE 21 mmol/L (22-30); CHLORIDE 113 mmol/L (98-107); GLUCOSE 102 mg/dL (75-110); LIPASE 64.2 U/L (23-300); POTASSIUM 3.8 mmol/L (3.6-5.0); SODIUM 142.1 mmol/L (137-145); TOTAL PROTEIN 7.6 g/dL (6.3-8.2)
--- NOTE | 2018-10-26 13:56 | RADIOLOGY REPORT (SQ) ---
EXAM DESCRIPTION: NM GASTRIC EMPTYING STUDY COMPLETED DATE/TIME: 10/26/2018 12:21 pm REASON FOR STUDY: GASTROPARESIS (K31.84) K31.84 GASTROPARESIS R10.9 UNSPECIFIED ABDOMINAL PAIN COMPARISON: None. RADIONUCLIDE AND DOSE: 2 millicuries Tc-99m Sulfur Colloid. A wide variety of solid foods have been used. The route of agent administration: Oral. TECHNIQUE: 1 minute serial static imaging performed at time of meal, 1 hour, 2 hours, 3 hours, and 4 hours as needed. Once stomach reaches 90% emptying, the test is complete. Image intensity values pl otted with respect to time with linear regression algorithm. LIMITATIONS: None. FINDINGS: Patient was observed for 4 hours. Immediate post meal serves as baseline. Gastric emptying at 30 minutes was 25.1%. Gastric emptying at 60 minutes was 43.8% Gastric emptying at 90 minutes was 57.9%. Gastric emptying at 120 minutes was 68.5%. Gastric emptying at 240 minutes was 90%. Normal values: 60 minutes: 30-90% retained. If less than 30%, abnormally rapid emptying. If greater than 90%, del ayed gastric emptying. 120 minutes: <60% retained. If greater than 60%, delayed gastric emptying. 240 minutes: <10% retained. If greater than 10%, delayed gastric emptying. IMPRESSION: NORMAL GASTRIC EMPTYING. TECHNICAL DOCUMENTATION: JOB ID: [id number] [email or web address]- All Rights Reserved rev-11/19 Reading location - IP/workstation name: [email or web address]
== END ==
LOC: RAD 07:47
PROVIDERS: ATTEND Internal Medicine
DX: K31.84 Gastroparesis (principal); R10.9 Unspecified abdominal pain
CPT/HCPCS: 36415; 83690; 80053; 78264; A9541

== ENCOUNTER → 2018-11-07 | Outpatient (CLI) | payer MEDICARE, MEDICAID ==
--- NOTE | 2018-11-07 14:35 | WOMENS IMAGING REPORT ---
EXAM DESCRIPTION: 3D SCREENING MAMMO BILAT COMPLETED DATE/TIME: 11/07/2018 2:03 pm REASON FOR STUDY: Z12.31 ROUTINE BILATERAL SCREENING Z12.31 ENCNTR SCREEN MAMMOGRAM FOR MALIGNANT N EOPLASM OF CRUZ COMPARISON: [id number] EXAM PARAMETERS: Views: Standard craniocaudal and mediolateral oblique views of each breast recorded using digital acquisition and breast tomosynthesis. Read with the assistance of CAD. .[facility] - [employer] Physician Liaison Version 9.2 LIMITATIONS: None. FINDINGS: No suspicious masses, suspicious calcifications or architectural distortion. No areas of c oncern. IMPRESSION: NORMAL MAMMOGRAM. BIRADS 1. BREAST DENSITY: b. There are scattered areas of fibroglandular density. BIRAD: 1 NEGATIVE RECOMMENDATION: ROUTINE SCREENING COMMENT: The patient has been notified of the results by letter per MQSA requirements. Additional no tification policies are in place for contacting patient with suspicious or incomplete findings. Quality ID #[id number]: The [employer] recommends an annual screening mammogram for women aged 40 years or over. This facility utilizes a reminder system to ensure that all patients receive reminder letters, and/or direct phone calls for appointments. This includes reminders for routine scr eening mammograms, diagnostic mammograms, or other Breast Imaging Interventions when appropriate. Th is patient will be placed in the appropriate reminder system. TECHNICAL DOCUMENTATION: FINDING NUMBER: (1) ASSESSMENT: (1) JOB ID: [id number] [employer]- All Rights Reserved Reading location - IP/workstation name: [email or web address]
== END ==
LOC: WI 13:07
PROVIDERS: ATTEND Internal Medicine
DX: Z12.31 Encounter for screening mammogram for malignant neoplasm of breast (principal)
CPT/HCPCS: 77063; 77067

== ENCOUNTER → 2019-04-08 | Outpatient (CLI) | payer MEDICARE, MEDICAID ==
--- NOTE | 2019-04-09 09:32 | RADIOLOGY REPORT (SQ) ---
EXAM DESCRIPTION: MRI CERVICAL SPINE WITHOUT COMPLETED DATE/TIME: 04/08/2019 11:51 am REASON FOR STUDY: (M54.12)RADICULOPATHY, CERVICAL REGION M54.12 RADICULOPATHY, CERVICAL REGION COMPARISON: MRI cervical spine 07/16/2018 Cervical spine five views 07/29/2010 TECHNIQUE: Sagittal and Axial imaging includes T1, T2, STIR and gradient echo sequences. LIMITATIONS: Mild motion artifact FINDINGS: ALIGNMENT: Normal. VERTEBRAE: Intact. BONE MARROW: Normal. No marrow replacement or reactive changes. DISCS: Diffuse decreased T2 weighted intervertebral disc signal. No disc space loss of height HARDWARE: None in the spine. CORD AND BASE OF BRAIN: Normal in size and signal intensity. SOFT TISSUES: No soft tissue masses. C1-C2: No significant spinal stenosis. C2-C3: No significant spinal stenosis or exit foraminal stenosis. C3-C4: No significant spinal stenosis or exit foraminal stenosis. C4-C5: Bulky asymmetric left-sided facet arthropathy is present with mild diffuse posterior disc bulg ing. This causes moderate left foraminal narrowing. No significant central canal or right foraminal narrowing. C5-C6: Minimal posterior disc bulging, mild bilateral facet hypertrophy. No central canal or right f oraminal narrowing. Mild left foraminal narrowing from facet and uncovertebral hypertrophy. C6-C7: Mild posterior disc bulging, mild left-sided facet and uncovertebral hypertrophy with mild lef t foraminal narrowing. No central stenosis or right foraminal narrowing. C7-T1: No significant spinal stenosis or exit foraminal stenosis. UPPER THORACIC: Incompletely imaged. No significant spinal stenosis or exit foraminal stenosis. OTHER: No other significant finding. IMPRESSION: Asymmetric bulky left C4-5 facet hypertrophy with moderate left C4-5 foraminal narrowing . Mild left C5-6 and C6-7 foraminal narrowing from facet and uncovertebral hypertrophy. TECHNICAL DOCUMENTATION: JOB ID: [id number]- All Rights Reserved Reading location - IP/workstation name: [email or web address]
== END ==
LOC: RAD 11:09
PROVIDERS: ATTEND Neurological Surgery
DX: M50.123 Cervical disc disorder at C6-C7 level with radiculopathy (principal)
CPT/HCPCS: 72141

== ENCOUNTER → 2019-05-05 | Outpatient (CLI) | payer MEDICAID, MEDICARE ==
--- NOTE | 2019-05-05 12:50 | RADIOLOGY REPORT (SQ) ---
EXAM DESCRIPTION: MRI LUMBAR SPINE WITHOUT COMPLETED DATE/TIME: 05/05/2019 12:23 pm REASON FOR STUDY: (M54.5)LOW BACK PAIN M54.5 LOW BACK PAIN COMPARISON: None. TECHNIQUE: Sagittal and Axial imaging includes T1, T2, STIR and gradient echo sequences. Coronal T2/ HASTE imaging. LIMITATIONS: None. FINDINGS: VISUALIZED UPPER ABDOMEN: Limited evaluation. No acute or suspicious findings suggested. SEGMENTATION: No transitional anatomy. The lowest well-developed disc space is labeled L5-S1. ALIGNMENT: Anatomic. VERTEBRAE: Intact. BONE MARROW: Normal. No marrow replacement or reactive changes. DISC SIGNAL: Desiccation multiple levels. POSTERIOR ELEMENTS: Generally intact. No pars defect evident. HARDWARE: None in the spine. CORD AND CONUS: Normal in size and signal intensity. Conus at the appropriate level. SOFT TISSUES: No aortic aneurysm seen. No bulky retroperitoneal adenopathy or mass. No paraspinal mas s or fluid. L1-L2: No significant spinal stenosis or exit foraminal stenosis. L2-L3: No significant spinal stenosis or exit foraminal stenosis. L3-L4: Facet arthropathy. No significant stenosis. L4-L5: Disc bulge and facet arthropathy. No stenosis. L5-S1: Disc bulge and facet arthropathy. No significant stenosis. LOWER THORACIC: Incompletely imaged. No stenosis seen. SACRUM: Visualized upper sacrum intact. OTHER: No other significant findings. IMPRESSION: Facet arthropathy. No significant stenosis. TECHNICAL DOCUMENTATION: JOB ID: [id number] [employer]- All Rights Reserved Reading location - IP/workstation name: [email or web address]
== END ==
LOC: RAD 11:38
PROVIDERS: ATTEND Neurological Surgery
DX: M51.87 Other intervertebral disc disorders, lumbosacral region (principal); M12.88 Other specific arthropathies, not elsewhere classified, other specified site; M54.5 Low back pain
CPT/HCPCS: 72148